=== PATIENT | female | born 1960 | race Two or more races ===

== ENCOUNTER 2025-01-21 13:57 | Inpatient (IN) | payer MEDICAID, SELFPAY ==
[2025-01-21] VITALS (9 sets, daily range): BP systolic 118–148; BP diastolic 80–108; PULSE 119–180; RESP 18–95; TEMP 36.8–37.4; O2SAT 95–96; BMI 37.1
--- NOTE | 2025-01-21 | XR_ITS ---
Examination: MRI brain without intravenous contrast. Date and time of exam: January 21, 2025 1818 hours INDICATIONS: Headaches and dizziness today Technique: Multiple axial and sagittal images of the brain obtained. Siemens high-resolution 1.5 Telma short bore scanners utilized. Sagittal sections, T1-weighted, TR 500, TE 14, are performed. Axial sections proton-density and T2-weighted have been obtained. Inversion recovery axial images, TR 9, 260, TE 111, TI 2500. Diffusion weighted images, axial sections, TR 4800, TE 128, B value 1000 Axial sections, ADC map, TR 4800, TE 128 Findings: Enlargement of the sella turcica is not present. The optic chiasm and infundibular are not remarkable. Prepontine and interpeduncular cisterns are not enlarged. There is no localized enlargement of the medulla or claudio. Fourth ventricle and cerebellar tonsils appear normal in position. No subacute area of hemorrhage density is seen. Mass in the cerebellopontine angle region is not evident. Globes symmetrical. Orbital musculature including medial lateral rectus muscles do not exhibit abnormality. Diffusion-weighted images demonstrate large foci of restricted diffusion left cerebellar hemisphere left vermis. Increased white matter signal mild Mass effect upon the ventricular system is not identified. 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
--- NOTE | 2025-01-21 14:01 | EKG_ITS ---
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
--- NOTE | 2025-01-21 14:16 | XR_ITS ---
Examination: AP chest single view Technique one AP portable semiupright chest single view Date and time: January 21, 2025, 1423 hrs. Indications: Dizziness today. Findings: Mild enlargement cardiac contour. Mild to moderate vascular congestion. No lobar pneumonia. Moderate osteopenia. Impression: Mild to moderate vascular congestion.
--- NOTE | 2025-01-21 14:26 | PC.NURSE ---
PER ASHA AT BEDSIDE PTS ONLY HX IS HTN, USED TO HAVE DIABETES BUT DOESN'T ANYMORE, ARTHRITIS AND NO CARDIAC HX. PER ASHA PT HAS NOT BEEN FEELING WELL FOR 2 DAYS, SAID HER L SIDE OF FACE WAS NUMB, SHE HAS DOUBLE VISION, AND THE LIGHT HURTS HER EYES. ASHA AT BEDSIDE ATTENTIVE TO PT.
--- NOTE | 2025-01-21 14:32 | EDNOTE_ITS ---
ED Dizzyness RME/HPI General Chief Complaint: Dizziness Stated Complaint: BROUSSARD, dizzy, HTN X 2 days Time Seen by Provider: 01/21/25 14:01 Source: patient and family Arrival date/time: 01/21/25 13:57 Limitations: no limitations RME / HPI RME / HPI Narrative: 65-year-old female is brought in by daughter who helps provide the translation. She is here today with a 2-day history of dizziness without syncopal related episodes or falls. She denies any chest pain or palpitations. Has no shortness of breath. Has no lower leg edema. Denies any fevers or chills. Has no abdominal pain, nausea, vomiting. She denies any past cardiac history other than hypertension. Has no history of diabetes. Has had no recent travels or surgeries. MD complaint: dizziness Timing: gradual onset Description: room spinning History of similar episodes: No History of trauma: No Related Data Allergies Allergy/AdvReac Type Severity Reaction Status Date / Time No Known Drug Allergies Allergy Verified 01/21/25 14:06 ED Exam General Limitations: Present no limitations General appearance: Present alert and in no apparent distress Head Head exam: Present atraumatic Eye Eye exam: Present normal appearance, PERRL and EOMI ENT ENT exam: Present normal exam, normal oropharynx and mucous membranes moist Neck Neck exam: Present normal inspection, full ROM and trachea midline Chest Chest inspection: Present normal inspection and symmetric chest wall rise Respiratory Respiratory exam: Present normal lung sounds bilaterally Cardiovascular Cardiovascular exam: Present tachycardia, irregular rhythm and normal heart sounds Abdominal Exam Abdominal exam: Present soft and normal bowel sounds Extremities Exam Extremities exam: Present normal inspection and full ROM Back Exam Back exam: Present normal inspection and full ROM Neurological Exam Neurological exam: Present alert, oriented X3, CN II-XII intact and other (Hallpike maneuvers are positive, she has increased dizziness with her head tilted to the left) Psychiatric Psychiatric exam: Present normal affect and normal mood Skin Skin exam: Present warm, dry, intact and normal color Course Course Course Narrative: Patient was brought back to exam room 5 once her atrial fibrillation was identified. On the monitor, her heart rate ranged between 140 to 181 bpm. 15 mg of diltiazem was provided IV. Heart rate improved and ranged between 110- 141. After approximately 20 minutes, a repeat dose of 15mg of diltiazem was provided. Rate improved to 90 to 110 bpm. Our hospitalist was contacted and patient was admitted. Case discussed a ttending ER physician. Quality Measures none Orders Category Date Time Status COVID-19 Screening Questionnaire NOW Care 01/21/25 15:[address] Screening NOW Care 01/21/25 14:04 Active Decision to Admit X1 Care 01/21/25 15:16 Ordered EKG (ED ONLY) *Do not use* NOW Care 01/21/25 14:02 Completed MRI Screening NOW Care 01/21/25 14:08 Active EKG (ED Only) Stat Exams 01/21/25 14:01 Draft MR head/brain wo con Stat Exams 01/21/25 Ordered XR chest 1V Stat Exams 01/21/25 14:16 Completed BNP [B-Type Natriuretic Peptide] Stat Lab 01/21/25 14:21 Completed CBC Stat Lab 01/21/25 14:21 Completed CMP [Comprehensive Metabolic Panel] Stat Lab 01/21/25 14:21 Completed Mag [Magnesium] Stat Lab 01/21/25 14:21 Completed Troponin I Stat Lab 01/21/25 14:21 Completed Troponin I Stat Lab 01/21/25 15:15 Ordered Diltiazem Inj [Cardizem Inj] Med 01/21/25 14:31 Discontinued 15 mg IV X1 ONE Diltiazem Inj [Cardizem Inj] Med 01/21/25 14:55 Discontinued 15 mg IV X1 ONE Vital Signs Vital signs: Vital Signs Pulse Rate 171 H 01/21/25 14:17 Respiratory Rate 20 01/21/25 14:17 Pulse Oximetry (%) 96 01/21/25 14:17 Oxygen Delivery Method Room Air 01/21/25 14:17 Dizziness MDM Narrative MDM Narrative:: 65-year-old female is brought in by daughter who helps provide the translation. She is here today with a 2-day history of dizziness without syncopal related episodes or falls. She denies any chest pain or palpitations. Has no shortness of breath. Has no lower leg edema. Denies any fevers or chills. Has no abdominal pain, nausea, vomiting. She denies any past cardiac history other than hypertension. Has no history of diabetes. Has had no recent travels or surgeries. On exam, patient is nontoxic-appearing. Hallpike maneuvers are positive. An EKG was obtained and she was found to have atrial fibrillation with rapid geovanna tricular response. Patient was immediately brought back to room 5 for further interventions and workup. Patient had improved rate control after doses of diltiazem. We will admit to medicine. Patient may benefit from MRI to rule out thrombus as a cause of her dizziness. She may also benefit from inpatient cardiac echo to assess for thrombus. Patient has not been anticoagulated and would benefit from this additionally. Patient data External records reviewed:: None Clinical information provided by:: patient and family Social determinants that could affect healthcare access:: none Patient has the following chronic illnesses:: htn How is presenting disease/condition affected by chronic disease/condition?: uneffected by Evaluation data The following diagnostics were reviewed and interpreted by me:: lab results, radiology exam(s) and EKG tracing(s) (Atrial fibrillation at [address] changes) Lab and/or radiology exams considered but not ordered:: n/a Interpretation Summary: New onset A-fib with RVR Medications / Prescriptions Medications or Prescriptions considered but not ordered:: n/a Medication administrations:: Medication Administration History Discontinued Medications Diltiazem HCl (Diltiazem Inj 5 Mg/Ml Vial 5 Ml) 15 mg IV X1 ONE Stop: 01/21/25 14:32 Last Admin: 01/21/25 14:35 Dose: 15 mg Documented By: TM Diltiazem HCl (Diltiazem Inj 5 Mg/Ml Vial 5 Ml) 15 mg IV X1 ONE Stop: 01/21/25 14:56 Last Admin: 01/21/25 14:59 Dose: 15 mg Documented By: TM See above Consultations Consultation(s) initiated? (list below): No Diagnosis Most likely diagnosis given after review of the tests above:: Atrial fibrillation with RVR Admission Indicated Admission indicated?: indicated Admission Request Was there a request for admission?: Yes Admission Attestation Admission request attestation: Discussed case with [] from Hospitalist service regarding admission. Discussed patients ED course, exam findings, labs, and radiology results. The Hospitalist [agrees,declines] to accept the patient for admission. Disposition Plan Disposition Plan: Admit Critical Care Time Critical Care Time Critical Care Time: Yes Total Critical Care Time (min.): 45 Attestation: I have personally spent 45 minutes of critical care time, exclusive of time spent on any procedures, in evaluation and management of this critically ill patient?s condition of atrial fibrillation rapid ventricular spots. I provided the following critical care treatment diagnostic workup, serial exams, review of test results, providing pharmacologic interventions, discussing case with attending ER physician and hospitalist. Discharge Plan Plan Patient Disposition: Admit Acute Care w/in Hospital Prescriptions/Referrals Referrals: No Primary/Family,Physician [Primary Care Provider] - In 1 week Problem List Clinical Impression: Atrial fibrillation with rapid ventricular response, Dizziness Patient/Caregiver Discharge Instructions Print Language: Mohawk Stand Alone Forms: Melanie Award Info., Patient Portal Info Letter
[2025-01-21] MEDS: DILTIAZEM INJ 5 MG/ML VIAL 5 ML 15 MG IV ×2 (14:35→14:59)
[2025-01-21 14:36] LABS: Basophils # (Auto) 0.0 Thou/mm3 (0.0-0.2); Basophils % (Auto) 1 % (0-2.5); Eosinophils # (Auto) 0.1 Thou/mm3 (0.0-0.5); Eosinophils % (Auto) 1 % (0-10); Hematocrit 41.6 % (36.0-46.0); Hemoglobin 14.1 g/dL (12.0-16.0); Immature Granulocytes Auto 0.02 Thou/mm3 (0.00-0.00); Lymphocytes # (Auto) 1.7 Thou/mm3 (1.0-4.8); Lymphocytes % (Auto) 19 % (10-50); Mean Corpuscular HGB Conc 33.9 g/dl (31.0-37.0); Mean Corpuscular Hemoglobin 29.6 pg (25.0-35.0); Mean Corpuscular Volume 87 fL (80-100); Monocytes # (Auto) 0.7 Thou/mm3 (0.0-0.8); Monocytes % (Auto) 8 % (0-12); Neutrophils # (Auto) 6.2 Thou/mm3 (1.8-7.7); Neutrophils % (Auto) 72 % (37-80); Nucleated Red Blood Cell # 0.00 Thou/mm3 (0.00-0.00); Nucleated Red Blood Cell % 0 /100 WBC (0); Platelet Count 236 Thou/mm3 (140-440); RDW Standard Deviation 42.3 fL (36.4-46.3); Red Blood Count 4.77 Miln/mm3 (4.00-5.20); White Blood Count 8.7 Thou/mm3 (3.6-11.0)
[2025-01-21 14:58] LABS: Alanine Aminotransferase 33 U/L (10-49); Albumin, Serum 4.5 gm/dL (3.4-4.8); Albumin/Globulin Ratio 1.6 (1.2-2.2); Alkaline Phosphatase 88 U/L (46-116); Anion Gap 12 (7-16); Aspartate Amino Transferase 37 U/L (0-34); BUN/Creatinine Ratio 14 Ratio (12-20); Bilirubin,Total 1.0 mg/dL (0.3-1.2); Blood Urea Nitrogen 13 mg/dL (9-23); Calcium 9.3 mg/dL (8.3-10.6); Calcium (Corrected) 9.3 mg/dL (8.5-10.1); Carbon Dioxide 25.0 mMol/L (20.0-31.0); Chloride 105 mMol/L (98-107); Creatinine (Component) 0.9 mg/dL (0.6-1.3); Globulin 2.8 gm/dL (2.3-3.5); Glucose 136 mg/dL (74-106); Magnesium 2.0 mg/dL (1.6-2.6); Osmolality,Calculated 285 (275-295); Potassium 4.0 mMol/L (3.4-5.1); Sodium 142 mMol/L (136-145); Total Protein 7.3 gm/dL (5.7-8.2); eGFR > 60 See Note
[2025-01-21 15:02] LABS: Troponin I 0.133 ng/mL (0.0-0.045)
[2025-01-21 15:12] LABS: B-Type Natriuretic Peptide 216 pg/mL (0-100)
[2025-01-21 16:47] LABS: Troponin I 0.126 ng/mL (0.0-0.045)
--- NOTE | 2025-01-21 17:22 | ESHP_ITS ---
<Statement entered by Ligia Cuadra MD - 01/28/25 11:43> I reviewed above note and agree with findings and plans. I have also personally examined the patient with medicine team and went over assessment and plan with medical team including regulatory affairs intern and resident physician. Documentation for date of: 01/21/25 Senior resident attestation: Patient evaluated and examined at the bedside, plan of care discussed with rest of the team including my attending physician, except as noted. 65-year-old female with a past medical history of hypertension, noncompliance with medications, history of palpitations for the past year. Now presented to the emergency room due to chief complaint of dizziness and throbbing headache. This started 2 days ago. In the ED patient was found to have A-fib with RVR, heart rate in the 150s, received diltiazem pushes 15 mg x 2, which improved her heart rate but underlying rhythm stated A-fib/flutter. #Persistent A-fib/flutter with RVR?history of palpitations for the past few months, no recent cardiology evaluation. Due to new diagnosis of atrial fibrillation, will attempt to convert the patient to sinus rhythm to prevent tachycardia induced cardiomyopathy started on amiodarone gtt. and heparin gtt. [id number] score 2. Cardiology consult is ordered. Appreciate recommendations. #Dizziness and vertigo?associated with headache symptoms started almost 48 hours ago, ER ordered MRI brain to rule out posterior circulation stroke. Will consider neurology consult following MRI. #History of hypertension?takes lisinopril at home but history of noncompliance. Quresh PGY2 HPI History of Present Illness History of present illness: 65-year-old female with past medical history of hypertension presented to the ED due to dizziness and headache. It started 2 days ago when she was sitting in the lobby and tried to stand up. She immediately felt the dizziness and tried to sit down but the dizziness and headache never went away. Headache is throbbing, constant, mostly localized on the frontal head. Patient noted past episodes palpitations and shortness of breath during which she felt impending sense of doom. Patient feels nauseous. Currently denies chest pain, vision changes, numbness, shortness of breath, cough, fatigue. Past Medical History Family History OTHER FAMILY HX: Hypertension Social History SOCIAL: Denies smoking, alcohol usage or illicit drug usage. Exam Vital Signs Temp Pulse Resp BP Pulse Ox O2 Del Method 98.5 F 122 H 20 118/80 95 Room Air 01/21/25 16:44 01/21/25 16:44 01/21/25 16:44 01/21/25 16:44 01/21/25 16:44 01/21/25 16:44 Narrative Exam GENERAL: AAOx3, Patient is in normal mood and affect, cooperative HEENT: Normocephalic, atraumatic.? Pupils are equal and reactive.? Oral mucosa is moist. Patent Nares NECK: Supple, nontender, no thyromegaly, no meningismus, no JVD, no step offs CHEST: Symmetrical, atraumatic, and with equal expansion , Nontender on palpation no deformity and no crepitus. CARDIOVASCULAR: Heart irregularly irregular rhythm. LUNGS: Clear to auscultation bilaterally with symmetrical chest rise.? No laboring tachypnea or wheezing.? No intercostal subcostal retraction.? No rales and no rhonchi. ABDOMEN: Soft, flat, nontender to palpation, no guarding or rebound tenderness.? Active and normal bowel sounds. EXTREMITIES: Nontender.? No edema.? No cyanosis.? Patient is able to move all 4 extremities well, with full ROM and good CSM. SKIN: Warm and dry, no jaundice or rashes noted. MUSCULOSKELETAL: No lumbar or midline bony tenderness.? There is no CVA tenderness.? No paraspinal muscle spasm or tenderness. NEURO: Cranial nerves II through XII grossly intact.? There is no focal neurologic deficits noted.? Results: Labs 01/22/25 04:50 01/22/25 04:50 Labs: Short CBC 01/21/25 Range/Units 14:21 WBC 8.7 (3.6-11.0) Thou/mm3 Hgb 14.1 (12.0-16.0) g/dL Hct 41.6 (36.0-46.0) % Plt Count 236 (140-440) Thou/mm3 BMP 01/21/25 14:21 Sodium 142 Potassium 4.0 Chloride 105 Carbon Dioxide 25.0 BUN 13 Creatinine 0.9 Glucose 136 H Calcium 9.3 Cardiac Enzymes 01/21/25 01/21/25 Range/Units 14:21 16:15 Troponin I 0.133 H* 0.126 H* (0.0-0.045) ng/mL Liver Function 01/21/25 Range/Units 14:21 Total Bilirubin 1.0 (0.3-1.2) mg/dL AST 37 H (0-34) U/L ALT 33 (10-49) U/L Alkaline Phosphatase 88 (46-116) U/L Albumin 4.5 (3.4-4.8) gm/dL Quality Measures Quality Measures none Medications Home Medications and Allergies Home Medications ?Medication ?Instructions ?Recorded ?Confirmed ?Type benazepril 20 mg tablet 20 mg PO QDAY 01/22/2501/22 History ondansetron HCl 8 mg tablet 8 mg PO QDAY PRN nausea an d 01/22/25 01/22/25 History vomiting Allergies Allergy/AdvReac Type Severity Reaction Status Date / Time No Known Drug Allergies Allergy Verified 01/21/25 14:06 Visit Medications Acetaminophen (Acetaminophen 325 Mg Tablet) 650 mg PO Q6H PRN PRN Reason: PAIN OR FEVER > 101 Stop: 02/20/25 16:42 Heparin Sodium (Porcine) (Heparin Sod Inj 5000 Unit/Ml Vial) 5,000 unit SC Q8HR ALISA Stop: 02/04/25 21:59 Amiodarone HCl/Dextrose (Nexterone Ivpb) 150 mg in 100 mls @ 600 mls/hr IV .Q10M ONE Stop: 01/21/25 17:27 Amiodarone HCl/Dextrose (Nexterone Ivpb) 360 mg in 200 mls @ 33.333 mls/hr IV .Q6H ONE Stop: 01/21/25 23:27 Amiodarone HCl/Dextrose (Nexterone Ivpb) 360 mg in 200 mls @ 16.667 mls/hr IV .Q12H ALISA Stop: 01/22/25 23:27 Ondansetron HCl (Ondansetron Inj 2 Mg/Ml Inj 2 Ml) 4 mg IVP Q6H PRN; Protocol PRN Reason: NAUSEA OR VOMITING Stop: 02/20/25 16:42 Discontinued Medications Diltiazem HCl (Diltiazem Inj 5 Mg/Ml Vial 5 Ml) 15 mg IV X1 ONE Stop: 01/21/25 14:32 Last Admin: 01/21/25 14:35 Dose: 15 mg Diltiazem HCl (Diltiazem Inj 5 Mg/Ml Vial 5 Ml) 15 mg IV X1 ONE Stop: 01/21/25 14:56 Last Admin: 01/21/25 14:59 Dose: 15 mg Assessment & Plan Plan Patient is a 65-year-old female with past medical history of hypertension who presented to the ED on 01/21/2025 with dizziness and headache. Admitted for A- fib with RVR, with heart rate ranging between 140 to 181 bpm requiring diltiazem injections for rate to improved to 92 to 110 bpm. #Afib with RVR -EKG showed A-fib with RVR. Patient's multiple episodes of shortness of breath and palpitations in the past, likely less than 1 year duration, indicates persistent A.fib, will purse rhythm control strategy. Will attempt to convert to sinus rhythm with goal of preventing tachycardia induced cardiomyopathy. [id number] score of 2. Will start anticoagulation as we are attempting pharmacological cardioversion. Patient responded to diltiazem pushes with 15mg x2. We ordered TSH as patient started amiodarione drip. -Troponin 0.126, BNP 216. Plan: -Start amiodarone drip -Heparin Drip at DVT dose at 18 units per hour. -Monitor for bradycardia, we ordered TSH #Dizziness - Associated with palpitations and headache. Concerning for posterior circulation stroke thus ER called stroke alert. Tele neuro evaluated patient and did not recommend tPA. - Will admit patient and consult inpatient neurology -MRI ordered by ER to r/o posterior circulation stroke. #Type2 FL, likely supply-demand ischemia. - Troponin peaked at 0.133, now at level 0.126. - Heparin Drip at DVT dose at 18 units per hour. - No EKG evidence of STEMI Disposition: Telemetry Diet: Cardiac Diet GI prophylaxis:Famotidine DVT prophylaxis: Heparin drip Code:Full Code Assessment and plan discussed with my attending physician Dr. Cuadra and Dr. Riddle (PGY-3) Dr. Verduzco (PGY-1)- Internal medicine resident
[2025-01-21] MEDS: AMIODARONE 150 MG IVPB 150 MG/100 ML BAG 600 MG IV (17:33)
[2025-01-21] MEDS: AMIODARONE 360 MG IVPB 360 MG/200 ML BAG 33.333 MG IV (17:48)
[2025-01-21 18:34] LABS: INR 1.1 (0.9-1.3); Partial Thromboplastin Time 26.7 Seconds (22.0-36.0); Prothrombin Time 11.5 Seconds (9.0-12.2)
--- NOTE | 2025-01-21 20:59 | PC.NURSE ---
PT HEPARIN PENDING FRO PTT CALLED PHARMACY
[2025-01-21] MEDS: HEPARIN SOD INJ 5000 UNIT/ML VIAL 6700 UNIT IV (22:04)
[2025-01-21] MEDS: Heparin/D5w 25K 250 ML Ivpb 25,000 UNIT/250 ML BAG 15.023 UNIT IV (22:05)
[2025-01-21] MEDS: FAMOTIDINE INJ 10 MG/ML VIAL 2 ML 20 MG IVP (22:05)
[2025-01-21 23:30] LABS: Troponin I 0.137 ng/mL (0.0-0.045)
[2025-01-22] VITALS (15 sets, daily range): BP systolic 100–148; BP diastolic 64–97; PULSE 85–171; RESP 19–96; TEMP 36.1–36.4; O2SAT 94–97; BMI 37.2
[2025-01-22] MEDS: AMIODARONE 360 MG IVPB 360 MG/200 ML BAG 16.667 MG IV ×2 (01:08→14:41)
--- NOTE | 2025-01-22 03:01 | PC.NURSE ---
Case Consult 01/22/2025 03:01:30 [facility] Case # [id number] has been created.
--- NOTE | 2025-01-22 03:21 | ECHO_ITS ---
Transthoracic Echo Report Ht (in): 59 Wt (lb): 184 Exam Location: Echo Lab Status: Inpatient Communications Maintainer: Iona Byers Indications: Procedure Performed: BP: 120 / 95 HR: 135 Technical Quality: Technically difficult study MEASUREMENTS (Male / Female) Normal Values 2D ECHO LV Ejection Fraction MOD BP 29.0 % >= 55 % LV Cardiac Index MOD BP 1357.8 cm?/min?m? LV Ejection Fraction MOD 4C 26.4 % LV Cardiac Index MOD 4C 1301.3 cm?/min?m? LV Ejection Fraction 4C AL 24.2 % LV Cardiac Index 4C AL 1233.8 cm?/min?m? LV Ejection Fraction MOD 2C 18.7 % LV Cardiac Index MOD 2C 707.2 cm?/min?m? LV Ejection Fraction 2C AL 15.7 % LV Cardiac Index 2C AL 597.2 cm?/min?m? LA Volume Index 33.9 cm?/m? 16 - 28 cm?/m? M-MODE AV Cusp Separation MM 1.8 cm DOPPLER AV Peak Velocity 138.5 cm/s AV Peak Gradient 7.7 mmHg AV Mean Gradient 4.0 mmHg AV Velocity Time Integral 29.0 cm LVOT Peak Velocity 71.7 cm/s LVOT Peak Gradient 2.1 mmHg LVOT Velocity Time Integral 13.0 cm MR Peak Velocity 408.5 cm/s MR Peak Gradient 66.7 mmHg TR Peak Velocity 286.3 cm/s TR Peak Gradient 32.8 mmHg PV Peak Velocity 82.5 cm/s PV Peak Gradient 2.7 mmHg FINDINGS Left Ventricle Normal left ventricular size, wall thickness. Global left ventricular systolic function is severely decreased. The ejection fraction is visually estimated at 25 %. Unable to evaluate diastolic function due to arial fibrillation. Right Ventricle The right ventricle is normal in size and systolic function. The estimated right ventricular systolic pressure, 49 mmHg. RAP15. Left Atrium The left atrium is normal by two-dimensional, color flow and Doppler imaging with no structural abnormalities, no thrombus formation present. Right Atrium The right atrium is normal by two-dimensional imaging, color flow and Doppler imaging with no structural abnormalities, no thrombus formation present. Atrial Septum The interatrial septum appears normal with no evidence of a shunt. Aorta The aorta is normal by two-dimensional, color flow and Doppler interrogation. Mitral Valve The mitral valve is normal by two-dimensional, color flow and Doppler interrogation. Mild mitral regurgitation. Aortic Valve The aortic valve is trileaflet and normal by two-dimensional, color flow and Doppler interrogation. There is no significant aortic valve regurgitation. Tricuspid Valve The tricuspid valve is normal by two-dimensional, color flow and Doppler interrogation. There is mild tricuspid valve regurgitation. Pulmonic Valve The pulmonic valve is not well visualized. There is no significant pulmonic valve regurgitation. Vessels Dilated inferior vena cava. Pericardium The pericardium is normal by two-dimensional imaging. There is no significant pericardial effusion. CONCLUSIONS Indication: New onset afib, stroke with bubble study Negative bubble study. Normal LV size, wall thickness. Global LV systolic function is severely decreased. Estimated EF at 25 %. The RV is normal in size and systolic function. The estimated RVSP, 49 mmHg. RAP15. Mild MR and TR. Dilated IVC. Petra Angel (Electronically Signed) Final Date: 22 January 2025 15:14
--- NOTE | 2025-01-22 03:41 | ESCONSULT_ITS ---
Tele Neuro Consultation Consultation Date 01/22/25 Most Recent Vital Signs Last Vital Signs Temp 99.3 F 01/21/25 22:00 Pulse 128 H 01/22/25 01:08 Resp 19 01/21/25 22:00 BP 111/93 H 01/22/25 01:08 Pulse Ox 96 01/21/25 22:00 O2 Del Method Room Air 01/21/25 22:00 Laboratory-Coagulation Panel PT 11.5 Seconds (9.0-12.2) 01/21/25 14:21 INR 1.1 (0.9-1.3) 01/21/25 14:21 APTT 26.7 Seconds (22.0-36.0) 01/21/25 14:21 Consultation Narrative [facility] TeleNeurology Consult Services Patient Name:???Xuan Blanco Date of :???1960 Identification Number:??? Date of Service:???01/22/2025 03:01:30 Diagnosis:?I63.89 - Cerebrovascular accident (CVA) due to other mechanism ([facility]LY [facility]) Impression: ?This consult was conducted in real-time using interactive audio and video technology. Patient was informed of the technology being used for this visit and agreed to proceed. Patient located in hospital and provider located at home/office setting. ? ?This is a 65 year old F with HTN who was admitted to [place], [place] in the afternoon of 01/21/25 for vertigo for 2 days. ? ?She presented to the hospital yesterday afternoon with a chief complaint of vertigo for the past two days. Upon admission, an MRI of the brain was ordered; however, a CTA or CTH was not requested, and neurology was not consulted at the time of admission. ? ?During her initial evaluation, the patient was found to have atrial fibrillation with rapid ventricular response. She was put on a heparin drip for that. The MRI, which was performed yesterday evening, revealed a left cerebellar stroke. Consequently, a stroke alert was called at approximately 6 AM on January 22, 2025, when the team noticed the radiology report from last night indicating the presence of a stroke on the MRI. ? ?Upon my examination, the patient reports mild dizziness and mild dysphagia, which she states has been present for the past two to three days. She denies any other complaints, and her NIH Stroke Scale (NIHSS) score is 0. ? ?I reviewed the MRI. There is indeed an acute stroke in the left cerebellum, wh ich is of moderate size. It is in a location that explains her symptoms. It is wedge-shaped, indicating likely embolic etiology, and based on new diagnosis of afib with RVR, would suspect cardioembolic. She is not a tPA/TNk candidate due to LKW>4.5 hours. Recommendations below. Recommendations: ? Telemetry Floor ? Neuro Checks (Q4) ? Bedside Swallow Eval ? Goal normotension ? Euglycemia and Avoid Hyperthermia (PRN Acetaminophen) ?Can continue the heparin drip, with a goal to transition to oral anticoagulation such as a direct oral anticoagulant (DOAC, i.e. apixaban), versus coumadin. Due to stroke, heparin drip should be the high risk stroke - no bolus protocol (the protocol without boluses). ?My recommended approach (or defer to primary team expertise): If planning to transition to DOAC (apixaban), continue the heparin drip to a therapeutic aPTT for 48 hours. After this period, then start the DOAC, and stop the heparin drip 1-2 hours after the first dose of DOAC. If planning for transition to coumadin instead (such as for cost issues with DOAC or other reasons), continue the heparin drip along with coumadin until a goal INR of 2-3 is reached, then discontinue the heparin. ?Atorvastatin 40 mg daily. ?TTE with bubble ?HbA1C, Lipid Panel, TSH. ?Lifestyle Modifications: Weight management (goal healthy BMI), smoking cessation if smoker, Mediterranean diet, exercise (moderate intensive aerobic exercise at least 3 days of the week for 20-60 minutes at a time per AHA guidelines, or as tolerated), active lifestyle, outpatient goal normotension, outpatient goal LDL <70. PCP to assist with these modifications and goals. ?Vessel imaging (CTA head and neck with contrast) can be obtained routinely for risk factor assessment, though not required stat given patient is not an DOMIN[place] candidate. Advanced Imaging: Advanced Imaging Deferred because: Current physical exam at the time of my assessment is not highly suggestive of an acute surgically intervenable large vessel occlusion. Additionally, stroke already completed in area that explains symptoms, NIHSS is 0, and last known well is >48 hours ago. Should the physical exam worsen in the future, please obtain state CTA H/N with contrast and call a new Stroke Alert. Metrics: Last Known Well: 01/21/2025 18:48:00 Dispatch Time: 01/22/2025 03:01:30 Initial Response Time: 01/22/2025 03:14:53Symptoms: dizziness/vertigo. Initial patient interaction: 01/22/2025 03:15:38 NIHSS Assessment Completed: 01/22/2025 03:21:30Patient is not a candidate for Thrombolytic. Thrombolytic Medical Decision: 01/22/2025 03:21:30Patient was not deemed candidate for Thrombolytic because of following reasons: LKW outside 4.[address] Head: Images were unavailable to me at the time of the exam, and I personally reviewed the study with attending radiologist. Primary Provider Notified of Diagnostic Impression and Management Plan on: 01/22/2025 03:40:00 Spoke With: bedside team. Attempted to call primary attending from number provided to me, but could not reach. I Left a voicemail stating my recommendations are in the chart and to call with questions. Able to Reach 01/22/2025 03:40:00 History of Present Illness:Patient is a 65 year old Female. Inpatient stroke alert was called for symptoms of dizziness/vertigo. This consult was conducted in real-time using interactive audio and video technology. Patient was informed of the technology being used for this visit and agreed to proceed. Patient located in hospital and provider located at home/office setting. This is a 65 year old F with HTN who was admitted to [place], [place] in the afternoon of 01/21/25 for vertigo for 2 days. She presented to the hospital yesterday afternoon with a chief complaint of vertigo for the past two days. Upon admission, an MRI of the brain was ordered; however, a CTA or CTH was not requested, and neurology was not consulted at the time of admission. During her initial evaluation, the patient was found to have atrial fibrillation with rapid ventricular response. She was put on a heparin drip for that. The MRI, which was performed yesterday evening, revealed a left cerebellar stroke. Consequently, a stroke alert was called at approximately 6 AM on January 22, 2025, when the team noticed the radiology report from last night indicating the presence of a stroke on the MRI. Upon my examination, the patient reports mild dizziness and mild dysphagia, which she states has been present for the past two to three days. She denies any other complaints, and her NIH Stroke Scale (NIHSS) score is 0. Past Medical History: Other PMH:? HTN Medications: Anticoagulant use:??Yes?heparin drip No Antiplatelet use Reviewed EMR for current medications Allergies:? Reviewed Social History: Drug Use: No Family History: There is no family history of premature cerebrovascular disease pertinent to this consultation ROS : 14 Points Review of Systems was performed and was negative except mentioned in HPI. Past Surgical History: There Is No Surgical History Contributory To Today?s Visit Examination: BP(111/93),?Pulse(128), 1A: Level of Consciousness - Alert; keenly responsive?+ 0 1B: Ask Month and Age - Both Questions Right?+ 0 1C: Blink Eyes & Squeeze Hands - Performs Both Tasks?+ 0 2: Test Horizontal Extraocular Movements - Normal?+ 0 3: Test Visual [place] - No Visual Loss?+ 0 4: Test Facial Palsy (Use Grimace if Obtunded) - Normal symmetry?+ 0 5A: Test Left Arm Motor Drift - No Drift for 10 Seconds?+ 0 5B: Test Right Arm Motor Drift - No Drift for 10 Seconds?+ 0 6A: Test Left Leg Motor Drift - No Drift for 5 Seconds?+ 0 6B: Test Right Leg Motor Drift - No Drift for 5 Seconds?+ 0 7: Test Limb Ataxia (FNF/Heel-Benitez) - No Ataxia?+ 0 8: Test Sensation - Normal; No sensory loss?+ 0 9: Test Language/Aphasia - Normal; No aphasia?+ 0 10: Test Dysarthria - Normal?+ 0 11: Test Extinction/Inattention - No abnormality?+ 0 NIHSS Score:?0 Pre-Morbid Modified [place] Scale:0 Points = No symptoms at all Spoke with :?bedside team. Attempted to call primary attending from number provided to me, but could not reach. I Left a voicemail stating my recommendations are in the chart and to call with questions. This consult was conducted in real time using interactive audio and video technology. Patient was informed of the technology being used for this visit and agreed to proceed. Patient located in hospital and provider located at home/office setting. Patient is being evaluated for possible acute neurologic impairment and high probability of imminent or life-threatening deterioration. I spent total of 30 minutes providing care to this patient, including time for face to face visit via telemedicine, review of medical records, imaging studies and discussion of findings with providers, the patient and/or family. Dr Latrell Kamara [facility] For Inpatient follow-up with [facility] physician please call [facility] at . As we are not an outpatient service for any post hospital discharge needs please contact the hospital for assistance. If you have any questions for the [facility] physicians or need to reconsult for clinical or diagnostic changes please contact us via [facility] at .
--- NOTE | 2025-01-22 03:54 | XR_ITS ---
Examination: CTA carotids with intravenous contrast CTA brain, head with intravenous contrast. 2-D sagittal, coronal reconstructions. 3-D reconstructions. Exam date and time: January 22, 2025, 1110 hrs. Indications: Large acute infarct left cerebellar hemisphere left vermis on brain MRI January 21, 2025, onset dizziness focal neurologic deficits this week CTDI: vol (mGy) 39 DLP: (mGycm) 400 Technique: Multiple CTA axial brain, head carotid images post intravenous contrast injection 100 cc, [id number]. 2-D sagittal, coronal reconstructions. 3-D reconstructions, 3-D post processing including vascular maximum intensity projection images. Low dose protocols were performed. One or more of the following dose reduction techniques were used; automated exposure control, adjustment of the mA and/or KV according to patient size, use of iterative reconstruction technique. Findings: No significant common carotid carotid bifurcation or internal carotid artery stenoses Enlarged left thyroid lobe with small thyroid nodules Mildly dominant left vertebral artery with no critical vertebral artery stenoses in the neck Intracranial vertebral arteries basilar artery fill as well as posterior cerebral artery branches with no large vessel occlusions Internal carotid arteries juxtasellar intact M1 segments middle cerebral arteries middle cerebral artery trifurcation vessels anterior cerebral vessels fill with no large vessel occlusions Impression: No significant neck arterial stenoses No cerebral large vessel arterial occlusions or thrombus Acute infarct left cerebellar hemisphere nonhemorrhagic
[2025-01-22 05:46] LABS: Basophils # (Auto) 0.0 Thou/mm3 (0.0-0.2); Basophils % (Auto) 0 % (0-2.5); Eosinophils # (Auto) 0.1 Thou/mm3 (0.0-0.5); Eosinophils % (Auto) 1 % (0-10); Hematocrit 40.5 % (36.0-46.0); Hemoglobin 13.8 g/dL (12.0-16.0); Immature Granulocytes Auto 0.03 Thou/mm3 (0.00-0.00); Lymphocytes # (Auto) 1.3 Thou/mm3 (1.0-4.8); Lymphocytes % (Auto) 17 % (10-50); Mean Corpuscular HGB Conc 34.1 g/dl (31.0-37.0); Mean Corpuscular Hemoglobin 29.8 pg (25.0-35.0); Mean Corpuscular Volume 88 fL (80-100); Monocytes # (Auto) 0.6 Thou/mm3 (0.0-0.8); Monocytes % (Auto) 8 % (0-12); Neutrophils # (Auto) 5.6 Thou/mm3 (1.8-7.7); Neutrophils % (Auto) 73 % (37-80); Nucleated Red Blood Cell # 0.00 Thou/mm3 (0.00-0.00); Nucleated Red Blood Cell % 0 /100 WBC (0); Platelet Count 180 Thou/mm3 (140-440); RDW Standard Deviation 43.7 fL (36.4-46.3); Red Blood Count 4.63 Miln/mm3 (4.00-5.20); White Blood Count 7.6 Thou/mm3 (3.6-11.0)
[2025-01-22 06:02] LABS: INR 1.1 (0.9-1.3); Prothrombin Time 12.1 Seconds (9.0-12.2)
[2025-01-22 06:09] LABS: Glucose Estimated Average 123 mg/dL (80-131); Hemoglobin A1C 5.9 % Hgb (4.8-6.0)
[2025-01-22 06:21] LABS: Alanine Aminotransferase 34 U/L (10-49); Albumin, Serum 4.1 gm/dL (3.4-4.8); Albumin/Globulin Ratio 1.5 (1.2-2.2); Alkaline Phosphatase 82 U/L (46-116); Anion Gap 11 (7-16); Aspartate Amino Transferase 38 U/L (0-34); BUN/Creatinine Ratio 18 Ratio (12-20); Bilirubin,Total 0.8 mg/dL (0.3-1.2); Blood Urea Nitrogen 14 mg/dL (9-23); Calcium 9.0 mg/dL (8.3-10.6); Calcium (Corrected) 9.0 mg/dL (8.5-10.1); Carbon Dioxide 26.6 mMol/L (20.0-31.0); Cardiac Risk Estimate 3.3 RATIO (3.7-5.6); Chloride 104 mMol/L (98-107); Cholesterol 154 mg/dL (132-200); Creatinine (Component) 0.8 mg/dL (0.6-1.3); Estimated Creatinine Clearance 67.4 mL/min (>60); Globulin 2.7 gm/dL (2.3-3.5); Glucose 127 mg/dL (74-106); HDL Cholesterol 46 mg/dL (40-60); LDL Cholesterol,Calculated 97 mg/dL (0-130); Magnesium 2.0 mg/dL (1.6-2.6); Osmolality,Calculated 285 (275-295); Phosphorous 3.5 mg/dL (2.4-5.1); Potassium 4.1 mMol/L (3.4-5.1); Sodium 142 mMol/L (136-145); Thyroid Stimulating Hormone 0.31 uIU/mL (0.55-4.78); Total Protein 6.8 gm/dL (5.7-8.2); Triglycerides 56 mg/dL (30-150); eGFR > 60 See Note
[2025-01-22 06:25] LABS: Troponin I 0.142 ng/mL (0.0-0.045)
--- NOTE | 2025-01-22 06:32 | PC.NURSE ---
TROPONIN AT 0.142. NO C/O CP. DR. PAZ MADE AWARE.WILL PLACE ORDERS FOR ADDITIONAL TROPONIN LABS.
--- NOTE | 2025-01-22 10:15 | PC.NURSE ---
Spoke with lab regarding pending ptt from morning draw, analyzer is down and should be resolved soon
[2025-01-22] MEDS: FAMOTIDINE INJ 10 MG/ML VIAL 2 ML 20 MG IVP ×2 (10:21→20:33)
--- NOTE | 2025-01-22 10:25 | PC.NURSE ---
Notified of High PTT from Jimmy in Hematology. Heparin drip paused. Notified Dr Riddle. Per , follow protocol per rx order.
[2025-01-22 10:34] LABS: Partial Thromboplastin Time 115.9 Seconds (22.0-36.0)
--- NOTE | 2025-01-22 11:23 | ESPR_ITS ---
<Statement entered by Ligia Cuadra MD - 01/28/25 11:44> I reviewed above note and agree with findings and plans. I have also personally examined the patient with medicine team and went over assessment and plan with medical team including recruitment intern and resident physician. Documentation for date of: 01/22/25 Senior resident attestation: Patient evaluated and examined at the bedside, plan of care discussed with rest of the team including my attending physician, except as noted. 65-year-old female with a past medical history of hypertension, noncompliance with medications, history of palpitations for the past year. Now presented to the emergency room due to chief complaint of dizziness and throbbing headache. This started 2 days ago. In the ED patient was found to have A-fib with RVR, heart rate in the 150s, received diltiazem pushes 15 mg x 2, which improved her heart rate but underlying rhythm stated A-fib/flutter. #Acute embolic stroke?found to have moderate cerebellar stroke on MRI, acute ischemic stroke given acute onset of symptoms, likely embolic phenomenon given history of A-fib and presentation, neurology consult to Dr. Nelosn is placed, follow the patient, recommended starting the patient on Eliquis and repeating CT noncontrast head tomorrow to rule out hemorrhagic conversion. #Persistent A-fib/flutter with RVR?history of palpitations for the past few months, no recent cardiology evaluation. Due to new diagnosis of atrial fibrillation, will attempt to convert the patient to sinus rhythm to prevent tachycardia induced cardiomyopathy started on amiodarone gtt. [id number] score 2. Discontinued diltiazem and start patient on metoprolol XL 25 mg, loading dose of digoxin 250 mcg x 1 given, continue with digoxin 125 mcg daily per cardiology recommendation. #CHF?echocardiogram showed reduced EF 25%, negative bubble study, cardiology consult to Dr. Nj is placed. New diagnosis of CHF, possible tachycardia induced cardiomyopathy. Given HFrEF discontinued diltiazem started metoprolol. Patient currently in no overt volume overload, will hold off on diuresis at this point. #Dizziness and vertigo?acute onset of symptoms 2 to 3 days ago, likely secondary to acute embolic stroke. #History of hypertension?takes lisinopril at home but history of noncompliance., Due to acute stroke we will hold off on adding antihypertensive at this time. Quresh PGY3 Subjective Subjective Interval history: Patient was seen and examined at bedside. A.m. vitals and labs reviewed. Patient still complains of headaches and dizziness although the degree has gotten a lot better compared to yesterday. Patient is mildly agitated due to her situation. MRI on 01/21/2025 revealed a large acute infarction left cerebellar hemisphere left vermis. Patient denies any chest pain, shortness of breath, changes in vision, or weakness. Review of systems otherwise negative except what is mentioned above Exam Vital Signs Temp Pulse Resp BP Pulse Ox O2 Del Method 97.1 F 87 19 119/87 H 94 L Room Air 01/22/25 08:00 01/22/25 08:00 01/22/25 08:00 01/22/25 08:00 01/22/25 08:00 01/22/25 08:00 Narrative Exam GENERAL: AAOx3, Patient is in normal mood and affect, cooperative HEENT: Normocephalic, atraumatic.? Pupils are equal and reactive.? Oral mucosa is moist. Patent Nares NECK: Supple, nontender, no thyromegaly, no meningismus, no JVD, no step offs CHEST: Symmetrical, atraumatic, and with equal expansion , Nontender on palpation no deformity and no crepitus. CARDIOVASCULAR: Heart irregularly irregular rhythm. LUNGS: Clear to auscultation bilaterally with symmetrical chest rise.? No laboring tachypnea or wheezing.? No intercostal subcostal retraction.? No rales and no rhonchi. ABDOMEN: Soft, flat, nontender to palpation, no guarding or rebound tenderness.? Active and normal bowel sounds. EXTREMITIES: Nontender.? No edema.? No cyanosis.? Patient is able to move all 4 extremities well, with full ROM and good CSM. SKIN: Warm and dry, no jaundice or rashes noted. MUSCULOSKELETAL: No lumbar or midline bony tenderness.? There is no CVA tenderness.? No paraspinal muscle spasm or tenderness. NEURO: Cranial nerves II through XII grossly intact.? There is no focal neurologic deficits noted.? Objective Labs 01/22/25 04:50 01/22/25 04:50 Labs: Laboratory Results - last 24 hr 01/21/25 01/21/25 01/21/25 14:21 16:15 23:00 WBC 8.7 RBC 4.77 Hgb 14.1 Hct 41.6 MCV 87 MCH 29.6 MCHC 33.9 RDW Std Deviation 42.3 Plt Count 236 Neut % (Auto) 72 Lymph % (Auto) 19 [place] % (Auto) 8 Eos % (Auto) 1 Baso % (Auto) 1 Neut # (Auto) 6.2 Lymph # (Auto) 1.7 [place] # (Auto) 0.7 Eos # (Auto) 0.1 Baso # (Auto) 0.0 Immature Gran # (Auto) 0.02 H Absolute Nucleated RBC 0.00 Immature Gran % 0 Nucleated RBC % 0 PT 11.5 INR 1.1 APTT 26.7 Sodium 142 Potassium 4.0 Chloride 105 Carbon Dioxide 25.0 Anion Gap 12 BUN 13 Creatinine 0.9 Estim Creat Clear Calc Not Performed. eGFR > 60 BUN/Creatinine Ratio [address] Glu mg/dL Hemoglobin A1c Calculated Osmolality 285 Calcium 9.3 Corrected Calcium 9.3 Phosphorus Magnesium 2.0 Total Bilirubin 1.0 AST 37 H ALT 33 Alkaline Phosphatase 88 Troponin I 0.133 H* 0.126 H* 0.137 H* B-Natriuretic Peptide 216 H Total Protein 7.3 Albumin 4.5 Globulin 2.8 Albumin/Globulin Ratio 1.6 Triglycerides Cholesterol LDL Cholesterol, Calc HDL Cholesterol Cholesterol/HDL Ratio TSH 01/22/25 04:50 WBC 7.6 RBC 4.63 Hgb 13.8 Hct 40.5 MCV 88 MCH 29.8 MCHC 34.1 RDW Std Deviation 43.7 Plt Count 180 D Neut % (Auto) 73 Lymph % (Auto) 17 [place] % (Auto) 8 Eos % (Auto) 1 Baso % (Auto) 0 Neut # (Auto) 5.6 Lymph # (Auto) 1.3 [place] # (Auto) 0.6 Eos # (Auto) 0.1 Baso # (Auto) 0.0 Immature Gran # (Auto) 0.03 H Absolute Nucleated RBC 0.00 Immature Gran % 0 Nucleated RBC % 0 PT 12.1 INR 1.1 APTT 115.9 H* D Sodium 142 Potassium 4.1 Chloride 104 Carbon Dioxide 26.6 Anion Gap 11 BUN 14 Creatinine 0.8 Estim Creat Clear Calc 67.4 eGFR > 60 BUN/Creatinine Ratio [address] Glu mg/dL 123 Hemoglobin A1c 5.9 Calculated Osmolality 285 Calcium 9.0 Corrected Calcium 9.0 Phosphorus 3.5 Magnesium 2.0 Total Bilirubin 0.8 AST 38 H ALT 34 Alkaline Phosphatase 82 Troponin I 0.142 H* B-Natriuretic Peptide Total Protein 6.8 Albumin 4.1 Globulin 2.7 Albumin/Globulin Ratio 1.5 Triglycerides 56 Cholesterol 154 LDL Cholesterol, Calc 97 HDL Cholesterol 46 Cholesterol/HDL Ratio 3.3 L TSH 0.31 L Quality Measures Quality Measures none Assessment & Plan Assessment Current Active Medications: Generic Name Dose Route Start Last Admin Trade Name Freq PRN Reason Stop Dose Admin Acetaminophen 650 mg 01/21/25 16:43 Acetaminophen 325 Mg Tablet PO 02/20/25 16:42 Q6H PRN PAIN OR FEVER > 101 Atorvastatin Calcium 80 mg 01/22/25 03:25 01/22/25 04:45 Atorvastatin Calcium 20 Mg Tablet PO 02/21/25 03:24 Not Given HS ALISA Famotidine 20 mg 01/21/25 21:00 01/22/25 10:21 Famotidine Inj 10 Mg/Ml Vial 2 Ml IVP 02/20/25 20:59 20 mg BID ALISA Administration Amiodarone HCl/Dextrose 360 mg in 200 mls @ 16.667 mls/hr 01/21/25 23:28 01/22/25 01:08 Nexterone Ivpb IV 01/22/25 23:27 16.667 mls/hr .Q12H ALISA Administration Heparin Sodium/Dextrose 25,000 unit in 250 mls @ 15.023 mls/hr 01/21/25 18:00 01/22/25 10:35 Heparin In D5w Ivpb IV 02/04/25 17:59 0 units/kg/hr .[id number] ALISA 0 mls/hr Titration Protocol 18 UNITS/KG/HR Ondansetron HCl 4 mg 01/21/25 16:43 Ondansetron Inj 2 Mg/Ml Inj 2 Ml IVP 02/20/25 16:42 Q6H PRN NAUSEA OR VOMITING Protocol Plan Patient is a 65-year-old female with past medical history of hypertension who presented to the ED on 01/21/2025 with dizziness and headache. Admitted for A- fib with RVR, with heart rate ranging between 140 to 181 bpm requiring diltiazem injections for rate to improved to 92 to 110 bpm. Was found to have left cerebellar stroke in MRI. #Acute Left cerebellar stroke - Associated with palpitations and headache. Concerning for posterior circulation stroke thus ER called stroke alert. Tele neuro evaluated patient and did not recommend tPA. -MRI (01/21/2025): Large acute infarcts left cerebellar hemisphere left vermis -CTA (01/22/2025): Acute infarct left cerebellar hemisphere nonhemorrhagic Plan: -Per neurology recommendations, patient will start Eliqus and discontinue heparin - Repeat Non-contrast CT tomorrow. #Afib with RVR -EKG showed A-fib with RVR. Patient's multiple episodes of shortness of breath and palpitations in the past, likely less than 1 year duration, indicates persistent A.fib, will purse rhythm control strategy. Will attempt to convert to sinus rhythm with goal of preventing tachycardia induced cardiomyopathy. [id number]-HOTm score of 2. Will start anticoagulation as we are attempting pharmacological cardioversion. Patient responded to diltiazem pushes with 15mg x2. We ordered TSH as patient started amiodarione drip. -Troponin 0.164, BNP 216. -ECHO: Global LV systolic function is severely decreased. Estimated EF at 25 %. Plan: -Start amiodarone drip -heparin discontinued. -Monitor for bradycardia, we ordered TSH #Type2 UT, likely supply-demand ischemia. - Troponin peaked at 0.133, now at level 0.164. - Heparin discontinued.. - No EKG evidence of STEMI Disposition: Telemetry Diet: Cardiac Diet GI prophylaxis:Famotidine DVT prophylaxis: Heparin drip Code:Full Code Assessment and plan discussed with my attending physician Dr. Cuadra and Dr. Venkatesh Verduzco (PGY-1)- Internal medicine resident
--- NOTE | 2025-01-22 11:38 | PC.SS ---
This is 65-year-old, single, female who presented to the ED due to suffering from dizziness. Patient appeared alert and oriented to self, place and situation. Patient was pleasant, her mood and behavior were ordinary. Patient reported that she recently moved from [place] to [place]. Patient confirmed her address and phone number. Patient reported that she resides with her grandchildren. Patient is independent with all ALDs, no DME use. Patient assigned her sister, Love Wilson, as her medical decision maker. Patient does not have a PCP yet. When medically clear, patient will return home; Love will provide transportation. Discharge plan: return home; Love to provide transportation. Next of kin: Love Burgos.
[2025-01-22 12:13] LABS: Troponin I 0.164 ng/mL (0.0-0.045)
[2025-01-22] MEDS: DILTIAZEM CD 120 MG CAPCR PO (13:19)
[2025-01-22] MEDS: APIXABAN 2.5 MG TABLET 5 MG PO ×2 (14:40→20:33)
--- NOTE | 2025-01-22 15:54 | ESCONSULT_ITS ---
<Statement entered by Leon Nj MD - 01/25/25 00:07> I personally examined the patient and reviewed the findings all essential components are reviewed by me agree with the treatment plan recommendation as documented by Dr. Boudreaux PGY 2 patient will recommend he continue on anticoagulation regimen if there is no contraindication by neurologist patient has A-fib and stroke HFrEF detail consultation is reviewed and all the findings are reviewed by me. I agree with the treatment plan recommendation as documented and we will continue to monitor the patient follow closely HPI Data of Consult Requesting Physician: Ligia Cuadar MD Admitting Provider: Liiga Cuadra MD Attending Provider: Ligia Cuadra MD Primary Care Provider: Physician No Primary/Family Consult Narrative History of present illness: Ms. Blanco is a Irish-speaking only 65-year-old female with past medical history significant for hypertension presented to the ED on 01/21/2025 complaining of dizziness and a throbbing headache. Patient was admitted to the hospital for a complete stroke workup and was found to be in A-fib/flutter with RVR with heart rate of 150s. Patient was started on amiodarone drip as well as oral diltiazem for anticoagulation patient was started on a heparin drip. Today patient is seen at bedside and states that she has been feeling dizziness on admission but other than that denies any shortness of breath, dizziness or syncopal episodes. Patient denies any chest pain, palpitation or chest pressure. Patient denies any previous cardiac history. Patient is found to have acute left cerebellar stroke evident on MRI which showed large acute infarct left cerebellar hemisphere and left vermis. Cardiology is consulted for new onset of A-fib as well as HFrEF with EF at 25% found on echocardiogram done with bubble study. Patient has a negative bubble study PMH: Hypertension PSH: no known surgical Hx SH: denies smoking tobacco, alcohol or illicit drugs including meth and cocaine Home meds: benzapril 20mg daily Allergies: no known allergies cc:: cc: Ligia Cuadra MD Review of Systems Review of Systems Systems Reviewed: All systems reviewed, normal except as documented Exam Vital Signs Temp Pulse Resp BP Pulse Ox O2 Del Method 96.9 F 138 H 25 H 135/97 H 96 Room Air 01/22/25 12:00 01/22/25 14:52 01/22/25 12:00 01/22/25 14:41 01/22/25 12:00 01/22/25 12:00 Narrative Exam GENERAL: A&Ox3 , Irish speaking, cooperative and well groomed female, Awake, Not in acute distress NEURO: no focal neurological deficits noted HEENT: Atraumatic, Normocephalic. mucous membranes moist. Eyes open, symmetrical, & clear HEART: irregular rate LUNGS: Clear to auscultation with no wheezing or crackles. ABDOMEN: soft, non-distended, non-tender, bowel sounds heard, no guarding or rebound tenderness SKIN: No Rash or ecchymoses EXTREMITIES: No edema, tenderness, able to move all 4 extremities, pedal pulses palpated Results Labs 01/22/25 04:50 01/22/25 04:50 Labs: Short CBC 01/22/25 Range/Units 04:50 WBC 7.6 (3.6-11.0) Thou/mm3 Hgb 13.8 (12.0-16.0) g/dL Hct 40.5 (36.0-46.0) % Plt Count 180 D (140-440) Thou/mm3 BMP 01/22/25 04:50 Sodium 142 Potassium 4.1 Chloride 104 Carbon Dioxide 26.6 BUN 14 Creatinine 0.8 Glucose 127 H Calcium 9.0 Cardiac Enzymes 01/21/25 01/21/25 01/22/25 Range/Units 16:15 23:00 04:50 Troponin I 0.126 H* 0.137 H* 0.142 H* (0.0-0.045) ng/mL 01/22/25 Range/Units 11:00 Troponin I 0.164 H* (0.0-0.045) ng/mL Liver Function 01/22/25 Range/Units 04:50 Total Bilirubin 0.8 (0.3-1.2) mg/dL AST 38 H (0-34) U/L ALT 34 (10-49) U/L Alkaline Phosphatase 82 (46-116) U/L Albumin 4.1 (3.4-4.8) gm/dL Quality Measures Quality Measures none Medications Home Medications and Allergies Home Medications ?Medication ?Instructions ?Recorded ?Confirmed ?Type benazepril 20 mg tablet 20 mg PO QDAY 01/22/2501/22 History ondansetron HCl 8 mg tablet 8 mg PO QDAY PRN nausea an d 01/22/25 01/22/25 History vomiting Allergies Allergy/AdvReac Type Severity Reaction Status Date / Time No Known Drug Allergies Allergy Verified 01/21/25 14:06 Visit Medications Acetaminophen (Acetaminophen 325 Mg Tablet) 650 mg PO Q6H PRN PRN Reason: PAIN OR FEVER > 101 Stop: 02/20/25 16:42 Apixaban (Apixaban 2.5 Mg Tablet) 5 mg PO BID [facility] Stop: 02/21/25 13:29 Last Admin: 01/22/25 14:40 Dose: 5 mg Atorvastatin Calcium (Atorvastatin Calcium 20 Mg Tablet) 80 mg PO HS [facility] Stop: 02/21/25 03:24 Last Admin: 01/22/25 04:45 Dose: Not Given Digoxin (Digoxin 0.125 Mg Tablet) 0.125 mg PO QDAY [facility] Stop: 02/22/25 08:59 Famotidine (Famotidine Inj 10 Mg/Ml Vial 2 Ml) 20 mg IVP BID [facility] Stop: 02/20/25 20:59 Last Admin: 01/22/25 10:21 Dose: 20 mg Amiodarone HCl/Dextrose (Nexterone Ivpb) 360 mg in 200 mls @ 16.667 mls/hr IV .Q12H [facility] Stop: 01/22/25 23:27 Last Admin: 01/22/25 14:41 Dose: 16.667 mls/hr Metoprolol Succinate (Metoprolol Succinate Xl 25 Mg Tabcr) 25 mg PO QDAY [facility] Stop: 02/21/25 15:44 Ondansetron HCl (Ondansetron Inj 2 Mg/Ml Inj 2 Ml) 4 mg IVP Q6H PRN; Protocol PRN Reason: NAUSEA OR VOMITING Stop: 02/20/25 16:42 Discontinued Medications Digoxin (Digoxin 0.125 Mg Tablet) 0.25 mg PO X1 ONE Stop: 01/22/25 15:43 Diltiazem HCl (Diltiazem Inj 5 Mg/Ml Vial 5 Ml) 15 mg IV X1 ONE Stop: 01/21/25 14:32 Last Admin: 01/21/25 14:35 Dose: 15 mg Diltiazem HCl (Diltiazem Inj 5 Mg/Ml Vial 5 Ml) 15 mg IV X1 ONE Stop: 01/21/25 14:56 Last Admin: 01/21/25 14:59 Dose: 15 mg Diltiazem HCl (Diltiazem Cd 120 Mg Capcr) 120 mg PO QDAY [facility] Stop: 02/21/25 12:59 Last Admin: 01/22/25 13:19 Dose: 120 mg Heparin Sodium (Porcine) (Heparin Sod Inj 5000 Unit/Ml Vial) 5,000 unit SC Q8HR [facility] Stop: 02/04/25 21:59 Heparin Sodium (Porcine) (Heparin Sod Inj 5000 Unit/Ml Vial) 6,700 unit 80 unit/kg (6700 unit) IV X1 ONE; Protocol Stop: 01/21/25 17:54 Last Admin: 01/21/25 22:04 Dose: 6,700 unit Amiodarone HCl/Dextrose (Nexterone Ivpb) 150 mg in 100 mls @ 600 mls/hr IV .Q10M ONE Stop: 01/21/25 17:27 Last Infusion: 01/21/25 17:44 Dose: Infused Amiodarone HCl/Dextrose (Nexterone Ivpb) 360 mg in 200 mls @ 33.333 mls/hr IV .Q6H ONE Stop: 01/21/25 23:27 Last Infusion: 01/22/25 01:07 Dose: Infused Heparin Sodium/Dextrose (Heparin In D5w Ivpb) 25,000 unit in 250 mls @ 15.023 mls/hr IV .[id number] [facility]; Protocol Stop: 02/04/25 17:59 Last Titration: 01/22/25 13:43 Dose: Infused Assessment & Plan Plan Ms. Blanco is a Irish-speaking only 65-year-old female with past medical history significant for hypertension presented to the ED on 01/21/2025 complaining of dizziness and a throbbing headache. Patient was admitted to the hospital for a complete stroke workup and was found to be in A-fib/flutter with RVR with heart rate of 150s. Patient was started on amiodarone drip as well as oral diltiazem and for anticoagulation patient was started on a heparin drip and now transitioned to eliquis. Cardiology is consulted for new onset of A-fib as well as HFrEF found on echo cardiogram done with bubble study. Patient has a negative bubble study #New onset A-fib with RVR #Chronic systolic HF, HFrEF with EF 25% #Uncontrolled primary hypertension -EKG showed A-fib with RVR, rate 161 QTc 431 -On admission pt endorses to multiple episodes of palpitations and shortness of breath over the last year, pt does complain of dizziness but denies syncopal episodes. -Currently pt is not in acute decompensated HF, pt denies any shortness of breath and is saturating well on room air, laying flat (denies orthpnea or PND) and on physical exam pt does not have LE edema. -Troponin 0.164, BNP 216. [id number] score of 2. HAS-BLED score 2 NYHA ll -ECHO: Normal LV size, wall thickness. Global LV systolic function is severely decreased. Estimated EF at 25 %. The RV is normal in size and systolic function. The estimated RVSP, 49 mmHg. RAP15. Mild MR and TR. Dilated IVC. Plan: -Pt is currently on amiodarone drip, transition to oral amiodarone once rate controlled with goal HR <110 -Due to reduce EF, discontinue diltiazem and recommend loading dose of digoxin and then maintenance dose of digoxin of 0.125mg -Since pt is not in acute decompensated HF, start metoprolol XL 25mg daily -For anticoagulation pt is transitioned from heparin drip to eliquis 5mg BID -Keep potassium >4 and Mag > 2 -Monitor telemetry closely -Pt will slowly need to be started on the remainder of GDMT as BP tolerates. 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 Clem Boudreaux (PGY-2)- Internal medicine resident
[2025-01-22] MEDS: DIGOXIN 0.125 MG TABLET 0.25 MG PO (16:16)
[2025-01-22] MEDS: METOPROLOL SUCCINATE XL 25 MG TABCR PO (16:16)
[2025-01-22] MEDS: ATORVASTATIN CALCIUM 20 MG TABLET 80 MG PO (20:33)
--- NOTE | 2025-01-22 23:57 | ESPR_ITS ---
Documentation for date of: 01/22/25 Subjective Subjective Interval history: Patient was seen in telemetry today at the bedside. Denies any headache dizziness nausea vomiting. Denies any vision problems/weakness/coordination difficulty in both upper and lower extremities. Exam - Neurology Vital Signs Temp Pulse Resp BP Pulse Ox O2 Del Method 97.2 F 105 H 23 H 100/64 96 Room Air 01/22/25 20:00 01/22/25 20:13 01/22/25 20:13 01/22/25 20:00 01/22/25 20:00 01/22/25 20:00 Narrative Exam GENERAL APPEARANCE: Well hydrated, well-nourished in no acute distress. HEENT: Normocephalic, atraumatic, extraocular movements intact. Pupils: Equal reacting to light and accommodation NECK: Supple, no JVD or bruits. CARDIOVASULAR: Heart: S1, S2 heard, regular without S3-S4 or murmur no rubs or gallops. LUNGS/CHEST: Clear to auscultation bilaterally. No rails, rhonchi, or wheezing. Normal inspection. ABDOMEN: Soft, nontender, with normal bowel sounds. No pulsatile masses. No rebound, rigidity, or guarding. Normal inspection and palpation. EXTREMITIES: Normal inspection and palpation. No edema, clubbing or cyanosis. SKIN: Warm and dry without rashes. Normal inspection. MUSCULOSKELETAL: No cervical, thoracic, lumbar or midline bony tenderness. Normal inspection. NEURO: Alert, awake and oriented x3. Cranial nerves: II through XII grossly intact. Speech and language: Normal with no dysarthria or dysphasia. Motor system: Tone and bulk: Normal: Strength: 5 out of 5 in all 4 extremities; No pronator drift noted. Deep tendon reflexes: 2+ bilaterally symmetrical. Plantar reflex: Downgoing bilaterally. Sensory system: Intact to all modalities of sensation bilaterally. Coordination: Intact to [id number] and giwx-[id number]-[id number] test bilaterally. No ataxia, no dysmetria, or dysdiadochokinesia noted. No intention tremors noted. Gait: Not tested. No signs of meningeal irritation noted. PSYCHIATRIC: Normal mood and affect. Objective Labs 01/23/25 05:23 01/22/25 04:50 Labs: Laboratory Results - last 24 hr 01/22/25 01/22/25 04:50 11:00 WBC 7.6 RBC 4.63 Hgb 13.8 Hct 40.5 MCV 88 MCH 29.8 MCHC 34.1 RDW Std Deviation 43.7 Plt Count 180 D Neut % (Auto) 73 Lymph % (Auto) 17 Johnson % (Auto) 8 Eos % (Auto) 1 Baso % (Auto) 0 Neut # (Auto) 5.6 Lymph # (Auto) 1.3 Johnson # (Auto) 0.6 Eos # (Auto) 0.1 Baso # (Auto) 0.0 Immature Gran # (Auto) 0.03 H Absolute Nucleated RBC 0.00 Immature Gran % 0 Nucleated RBC % 0 PT 12.1 INR 1.1 APTT 115.9 H* D Sodium 142 Potassium 4.1 Chloride 104 Carbon Dioxide 26.6 Anion Gap 11 BUN 14 Creatinine 0.8 Estim Creat Clear Calc 67.4 eGFR > 60 BUN/Creatinine Ratio [address] Glu mg/dL 123 Hemoglobin A1c 5.9 Calculated Osmolality 285 Calcium 9.0 Corrected Calcium 9.0 Phosphorus 3.5 Magnesium 2.0 Total Bilirubin 0.8 AST 38 H ALT 34 Alkaline Phosphatase 82 Troponin I 0.142 H* 0.164 H* Total Protein 6.8 Albumin 4.1 Globulin 2.7 Albumin/Globulin Ratio 1.5 Triglycerides 56 Cholesterol 154 LDL Cholesterol, Calc 97 HDL Cholesterol 46 Cholesterol/HDL Ratio 3.3 L TSH 0.31 L Assessment & Plan Assessment and plan (1) Acute CVA (cerebrovascular accident): Status: Acute Assessment and plan: Secondary to atrial fibrillation new onset. Continue with the anticoagulation and statin , Will do a repeat CT without contrast tomorrow morning to make sure that there is no hemorrhagic transformation. PT/OT evaluation tomorrow (2) Atrial fibrillation with rapid ventricular response: Status: Acute Assessment and plan: Continue with rate control and anticoagulation (3) Dizziness: Status: Resolved (4) Hypertension: Status: Chronic Assessment and plan: Continue with home meds
[2025-01-23] VITALS (14 sets, daily range): BP systolic 119–159; BP diastolic 71–97; PULSE 61–141; RESP 16–98; TEMP 36.1–36.4; O2SAT 96–99; BMI 37.2; BMI 37.1; BMI 15.0
--- NOTE | 2025-01-23 01:25 | PC.NURSE ---
SPOKE WITH DR. REYES REGARDING AMIODARONE GTT TO BE NEAR COMPLETION.NO ORDERS TO CONTINUE DRIP OR TRANSITION TO ORAL AMIODARONE AT THE MOMENT. HR BETWEEN 90-120'S. PT RESTING AT THE MOMENT. NO SIGNS OF DISTRESS. NEW ORDERS TO CONTINUE AMIODARONE DRIP AT THIS TIME.
[2025-01-23] MEDS: AMIODARONE 360 MG IVPB 360 MG/200 ML BAG 16.667 MG IV ×2 (02:13→14:52)
[2025-01-23 06:19] LABS: Basophils # (Auto) 0.0 Thou/mm3 (0.0-0.2); Basophils % (Auto) 0 % (0-2.5); Eosinophils # (Auto) 0.1 Thou/mm3 (0.0-0.5); Eosinophils % (Auto) 1 % (0-10); Hematocrit 40.7 % (36.0-46.0); Hemoglobin 14.0 g/dL (12.0-16.0); Immature Granulocytes Auto 0.02 Thou/mm3 (0.00-0.00); Lymphocytes # (Auto) 1.5 Thou/mm3 (1.0-4.8); Lymphocytes % (Auto) 19 % (10-50); Mean Corpuscular HGB Conc 34.4 g/dl (31.0-37.0); Mean Corpuscular Hemoglobin 29.4 pg (25.0-35.0); Mean Corpuscular Volume 86 fL (80-100); Monocytes # (Auto) 0.8 Thou/mm3 (0.0-0.8); Monocytes % (Auto) 10 % (0-12); Neutrophils # (Auto) 5.6 Thou/mm3 (1.8-7.7); Neutrophils % (Auto) 69 % (37-80); Nucleated Red Blood Cell # 0.00 Thou/mm3 (0.00-0.00); Nucleated Red Blood Cell % 0 /100 WBC (0); Platelet Count 198 Thou/mm3 (140-440); RDW Standard Deviation 42.5 fL (36.4-46.3); Red Blood Count 4.76 Miln/mm3 (4.00-5.20); White Blood Count 8.0 Thou/mm3 (3.6-11.0)
[2025-01-23 06:31] LABS: INR 1.1 (0.9-1.3); Partial Thromboplastin Time 28.4 Seconds (22.0-36.0); Prothrombin Time 11.9 Seconds (9.0-12.2)
[2025-01-23 06:49] LABS: Alanine Aminotransferase 34 U/L (10-49); Albumin, Serum 4.0 gm/dL (3.4-4.8); Albumin/Globulin Ratio 1.5 (1.2-2.2); Alkaline Phosphatase 89 U/L (46-116); Anion Gap 10 (7-16); Aspartate Amino Transferase 29 U/L (0-34); BUN/Creatinine Ratio 15 Ratio (12-20); Bilirubin,Total 0.8 mg/dL (0.3-1.2); Blood Urea Nitrogen 12 mg/dL (9-23); Calcium 9.1 mg/dL (8.3-10.6); Calcium (Corrected) 9.1 mg/dL (8.5-10.1); Carbon Dioxide 29.1 mMol/L (20.0-31.0); Chloride 106 mMol/L (98-107); Creatinine (Component) 0.8 mg/dL (0.6-1.3); Estimated Creatinine Clearance 67.4 mL/min (>60); Globulin 2.7 gm/dL (2.3-3.5); Glucose 107 mg/dL (74-106); Magnesium 2.1 mg/dL (1.6-2.6); Osmolality,Calculated 288 (275-295); Phosphorous 3.5 mg/dL (2.4-5.1); Potassium 3.9 mMol/L (3.4-5.1); Sodium 145 mMol/L (136-145); Total Protein 6.7 gm/dL (5.7-8.2); eGFR > 60 See Note
--- NOTE | 2025-01-23 07:00 | XR_ITS ---
Examination: CT brain head without contrast. 2-D sagittal coronal reconstructions Date and time of exam:January 23, 2025 0901 hours INDICATIONS: Headaches beginning 5 days ago, history atrial fibrillation, RVR, patient is anticoagulated, brain MRI January 21, 2025 large acute infarct left cerebellar hemisphere and vermis CTDI: vol (mGy):46.4 DLP: (mGycm):907 Technique: Multiple CT axial sections of the brain have been obtained, 5 mm slice thickness. Contrast has not been administered. 2-D sagittal, coronal reconstructions have been obtained Low dose protocols were performed. One or more of the following dose reduction techniques were used; automated exposure control, adjustment of the mA and/or KV according to patient size, use of iterative reconstruction technique. Findings: Acute infarct left cerebellar hemisphere, noted on the brain MRI January 21, 2025 No acute hemorrhage Ventricles are not enlarged No midline shift IMPRESSION: Acute nonhemorrhagic infarct left cerebellar hemisphere, noted on the brain MRI January 21, 2025
[2025-01-23] MEDS: METOPROLOL SUCCINATE XL 25 MG TABCR PO ×2 (08:01→09:54)
[2025-01-23] MEDS: APIXABAN 2.5 MG TABLET 5 MG PO ×2 (08:01→20:54)
[2025-01-23] MEDS: FAMOTIDINE INJ 10 MG/ML VIAL 2 ML 20 MG IVP ×2 (08:02→20:53)
[2025-01-23] MEDS: DIGOXIN 0.125 MG TABLET PO (08:02)
--- NOTE | 2025-01-23 08:48 | PC.SS ---
Follow up note: CT of head pending. PT pending. Pt will return home upon dc.
--- NOTE | 2025-01-23 09:47 | ESPR_ITS ---
<Statement entered by Ligia Cuadra MD - 01/28/25 11:44> I reviewed above note and agree with findings and plans. I have also personally examined the patient with medicine team and went over assessment and plan with medical team including graduate internship and resident physician. Documentation for date of: 01/23/25 Subjective Subjective Interval history: senior attestation: Patient examined at bedside. No overnight events reported. Continue Aspirin and Eliquis for acute left cerebellar hemisphere infarct, appears large on MRI. Repeat CT head on 01/23/2025 negative for acute hemorrhagic conversion. Continue aspirin and Eliquis. Patient started on metoprolol 50 mg p.o. daily. Eliquis 0.125 daily. Transition patient off amiodarone drip after completed--> amiodarone p.o. 200 mg twice daily. Physical therapy outpatient. Recommended for forward facing walker to decrease risk of falls. Plan to discharge within the next 24 hours. - Patient was seen and examined at bedside. A.m. vitals and labs reviewed. Patient still complains of headaches and dizziness although the degree has gotten a lot better compared to yesterday. Patient is mildly agitated due to her situation. Still has blurry and double vision. Patient denies any chest pain, shortness of breath, changes in vision, or weakness. Exam Vital Signs Temp Pulse Resp BP Pulse Ox O2 Del Method 97.3 F 141 H 24 H 128/97 H 97 Room Air 01/23/25 08:00 01/23/25 08:02 01/23/25 08:00 01/23/25 08:02 01/23/25 08:00 01/23/25 08:00 Narrative Exam GENERAL: AAOx3, Patient is in normal mood and affect, cooperative HEENT: Normocephalic, atraumatic.? Pupils are equal and reactive.? Oral mucosa is moist. Patent Nares NECK: Supple, nontender, no thyromegaly, no meningismus, no JVD, no step offs CHEST: Symmetrical, atraumatic, and with equal expansion , Nontender on palpation no deformity and no crepitus. CARDIOVASCULAR: Heart irregularly irregular rhythm. LUNGS: Clear to auscultation bilaterally with symmetrical chest rise.? No laboring tachypnea or wheezing.? No intercostal subcostal retraction.? No rales and no rhonchi. ABDOMEN: Soft, flat, nontender to palpation, no guarding or rebound tenderness.? Active and normal bowel sounds. EXTREMITIES: Nontender.? No edema.? No cyanosis.? Patient is able to move all 4 extremities well, with full ROM and good CSM. SKIN: Warm and dry, no jaundice or rashes noted. MUSCULOSKELETAL: No lumbar or midline bony tenderness.? There is no CVA tenderness.? No paraspinal muscle spasm or tenderness. NEURO: There is no focal neurologic deficits noted.? Objective Labs 01/23/25 05:23 01/23/25 05:23 Labs: Laboratory Results - last 24 hr 01/22/25 01/22/25 01/23/25 04:50 11:00 05:23 WBC 8.0 RBC 4.76 Hgb 14.0 Hct 40.7 MCV 86 MCH 29.4 MCHC 34.4 RDW Std Deviation 42.5 Plt Count 198 Neut % (Auto) 69 Lymph % (Auto) 19 [place] % (Auto) 10 Eos % (Auto) 1 Baso % (Auto) 0 Neut # (Auto) 5.6 Lymph # (Auto) 1.5 [place] # (Auto) 0.8 Eos # (Auto) 0.1 Baso # (Auto) 0.0 Immature Gran # (Auto) 0.02 H Absolute Nucleated RBC 0.00 Immature Gran % 0 Nucleated RBC % 0 PT 11.9 INR 1.1 APTT 115.9 H* D 28.4 D Sodium 145 Potassium 3.9 Chloride 106 Carbon Dioxide 29.1 Anion Gap 10 BUN 12 Creatinine 0.8 Estim Creat Clear Calc 67.4 eGFR > 60 BUN/Creatinine Ratio 15 Glucose 107 H Calculated Osmolality 288 Calcium 9.1 Corrected Calcium 9.1 Phosphorus 3.5 Magnesium 2.1 Total Bilirubin 0.8 AST 29 ALT 34 Alkaline Phosphatase 89 Troponin I 0.164 H* Total Protein 6.7 Albumin 4.0 Globulin 2.7 Albumin/Globulin Ratio 1.5 Quality Measures Quality Measures none Assessment & Plan Assessment Current Active Medications: Generic Name Dose Route Start Last Admin Trade Name Freq PRN Reason Stop Dose Admin Acetaminophen 650 mg 01/21/25 16:43 Acetaminophen 325 Mg Tablet PO 02/20/25 16:42 Q6H PRN PAIN OR FEVER > 101 Apixaban 5 mg 01/22/25 13:30 01/23/25 08:01 Apixaban 2.5 Mg Tablet PO 02/21/25 13:29 5 mg BID ALISA Administration Aspirin 81 mg 01/23/25 10:00 Aspirin Ec 81 Mg Tabec PO 02/22/25 09:59 QDAY ALISA Atorvastatin Calcium 80 mg 01/22/25 03:25 01/22/25 20:33 Atorvastatin Calcium 20 Mg Tablet PO 02/21/25 03:24 80 mg HS ALISA Administration Digoxin 0.125 mg 01/23/25 09:00 01/23/25 08:02 Digoxin 0.125 Mg Tablet PO 02/22/25 08:59 0.125 mg QDAY ALISA Administration Famotidine 20 mg 01/21/25 21:00 01/23/25 08:02 Famotidine Inj 10 Mg/Ml Vial 2 Ml IVP 02/20/25 20:59 20 mg BID ALISA Administration Amiodarone HCl/Dextrose 360 mg in 200 mls @ 16.667 mls/hr 01/23/25 01:29 01/23/25 02:13 Nexterone Ivpb IV 02/22/25 01:28 16.667 mls/hr .Q12H ALISA Administration Metoprolol Succinate 50 mg 01/24/25 09:00 Metoprolol Succinate Xl 25 Mg Tabcr PO 02/23/25 08:59 QDAY ALISA Ondansetron HCl 4 mg 01/21/25 16:43 Ondansetron Inj 2 Mg/Ml Inj 2 Ml IVP 02/20/25 16:42 Q6H PRN NAUSEA OR VOMITING Protocol Plan Patient is a 65-year-old female with past medical history of hypertension who presented to the ED on 01/21/2025 with dizziness and headache. Admitted for A- fib with RVR and stroke rule out. #Acute Left cerebellar stroke - Associated with palpitations and headache. Concerning for posterior circulation stroke thus ER called stroke alert. Tele neuro evaluated patient and did not recommend tPA. Repeat head CT (01/23/2025) negative to hemorrhagic conversion. Diagnostics: -MRI (01/21/2025): Large acute infarcts left cerebellar hemisphere left vermis -CTA (01/22/2025): Acute infarct left cerebellar hemisphere nonhemorrhagic -Head CT non-contrast (01/23/2025): Acute nonhemorrhagic infarct left cerebellar hemisphere Plan: -Aspirin 81 mg qday & Eliquis 5 mg PO BID (even Atrial Fibrillation w/ rvr) -Atorvastatin 80 mg HS -Aspiration Precautions/Head of the bed -PT-->outpatient physical therapy & FWW #Afib with RVR #new onset of Atrial Fibrillation #new onset of congestive heart failure #HFrEF, EF 25% (01/22/2025) -EKG showed A-fib with RVR. Patient's multiple episodes of shortness of breath and palpitations in the past, likely less than 1 year duration, indicates persistent A.fib, will purse rhythm control strategy. Will attempt to convert to sinus rhythm with goal of preventing tachycardia induced cardiomyopathy. -Troponin 0.164, BNP 216. Echo (01/22/2025): Normal LV size, wall thickness. Global LV systolic function is severely decreased. Estimated EF at 25 %. The RV is normal in size and systolic function. The estimated RVSP, 49 mmHg. RAP15. Mild MR and TR. Dilated IVC. [id number] score of 4 (CHF,HTN, stroke 2+) HAS BLED: 2 points Plan: -Continue Amiodarone drip--->transition starting tomorrow to Amiodarone 200 mg PO BID. -Continue metoprolol 50 mg Qday and digoxin 0.125 -Monitor for bradycardia #Troponemia, likely type II demand ischemia - Troponin peaked at 0.133, now at level 0.164. No evidence of ST elevation on EKG Plan -continue to monitor tele Disposition: Telemetry Diet: Cardiac Diet GI prophylaxis:Famotidine DVT prophylaxis: Heparin drip Code:Full Code Assessment and plan discussed with my attending physician Dr. Cuadra and Dr. Damaris Verduzco (PGY-1)- Internal medicine resident - The patient's plan was discussed with attending Dr. Khalif Ocampo MD PGY2 Internal Medicine
[2025-01-23] MEDS: ASPIRIN EC 81 MG TABEC PO (09:54)
--- NOTE | 2025-01-23 15:13 | PC.SS ---
SS received call from RODRÍGUEZ Lee who explained she is recommending pt follow up with Out Patient PT. SS has sent fax to Out Patient Pt. SS has spoken to patient's sisterLove who is aware of referral. SS has sent referral for walker using [facility]. SS received call from Ania at [facility] [place] who states pt's health insurance number is not correct on her facesheet. SS has called pt registration to update facesheet. Ania from [facility] [place] explained after running the correct insurance number pt has Medical from [facility] and they are not able to complete DME order. SisterLove is aware and explained pt is in the process of switching Medical to [facility]. is aware they will have to purchase walker privately if DME companies do not accept. Sister is also aware to follow up with Out Patient PT (SS has provided their phone# and address).
--- NOTE | 2025-01-23 15:33 | PD.RESPRO ---
Documentation for date of: 01/23/25 Subjective Subjective Interval history: Pt is seen at bedside, she is standing by the bed. Denies any dizziness, however states her vision is blurry in both eyes. Pt denies any weakness, shortness of breath, palpitations or chest pain. Net fluid balance is -1150, BP is 159/88, HR 101, telemetry is reviewed and pt was in afib rate controlled. labs are reviewed and are within normal limits. Recommend once the amiodrip is finished to transition pt to Amiodarone 200mg BID, continue digoxin 0.125 QD, metoprolol XL 50 mg QD, and anticoagulation with eliquis 5mg BID. Pt will need close follow up with cardiology after discharge. No cardiac complaints at this time. Exam Vital Signs Temp Pulse Resp BP Pulse Ox O2 Del Method 97.6 F 113 H 17 123/77 98 Room Air 01/23/25 12:00 01/23/25 14:52 01/23/25 12:00 01/23/25 14:52 01/23/25 12:00 01/23/25 12:00 Narrative Exam GENERAL: A&Ox3 , Ghanaian speaking, cooperative and well groomed female, Awake, Not in acute distress NEURO: no focal neurological deficits noted other than pt complains of blurry vision HEENT: Atraumatic, Normocephalic. mucous membranes moist. Eyes open, symmetrical, & clear HEART: irregular rate LUNGS: Clear to auscultation with no wheezing or crackles. ABDOMEN: soft, non-distended, non-tender, bowel sounds heard, no guarding or rebound tenderness SKIN: No Rash or ecchymoses EXTREMITIES: No edema, tenderness, able to move all 4 extremities, pedal pulses palpated Objective Labs 01/23/25 05:23 01/23/25 05:23 Labs: Laboratory Results - last 24 hr 01/23/25 05:23 WBC 8.0 RBC 4.76 Hgb 14.0 Hct 40.7 MCV 86 MCH 29.4 MCHC 34.4 RDW Std Deviation 42.5 Plt Count 198 Neut % (Auto) 69 Lymph % (Auto) 19 [place] % (Auto) 10 Eos % (Auto) 1 Baso % (Auto) 0 Neut # (Auto) 5.6 Lymph # (Auto) 1.5 [place] # (Auto) 0.8 Eos # (Auto) 0.1 Baso # (Auto) 0.0 Immature Gran # (Auto) 0.02 H Absolute Nucleated RBC 0.00 Immature Gran % 0 Nucleated RBC % 0 PT 11.9 INR 1.1 APTT 28.4 D Sodium 145 Potassium 3.9 Chloride 106 Carbon Dioxide 29.1 Anion Gap 10 BUN 12 Creatinine 0.8 Estim Creat Clear Calc 67.4 eGFR > 60 BUN/Creatinine Ratio 15 Glucose 107 H Calculated Osmolality 288 Calcium 9.1 Corrected Calcium 9.1 Phosphorus 3.5 Magnesium 2.1 Total Bilirubin 0.8 AST 29 ALT 34 Alkaline Phosphatase 89 Total Protein 6.7 Albumin 4.0 Globulin 2.7 Albumin/Globulin Ratio 1.5 Quality Measures Quality Measures none Assessment & Plan Assessment Current Active Medications: Generic Name Dose Route Start Last Admin Trade Name Freq PRN Reason Stop Dose Admin Acetaminophen 650 mg 01/21/25 16:43 Acetaminophen 325 Mg Tablet PO 02/20/25 16:42 Q6H PRN PAIN OR FEVER > 101 Apixaban 5 mg 01/22/25 13:30 01/23/25 08:01 Apixaban 2.5 Mg Tablet PO 02/21/25 13:29 5 mg BID ALISA Administration Aspirin 81 mg 01/23/25 10:00 01/23/25 09:54 Aspirin Ec 81 Mg Tabec PO 02/22/25 09:59 81 mg QDAY ALISA Administration Atorvastatin Calcium 80 mg 01/22/25 03:25 01/22/25 20:33 Atorvastatin Calcium 20 Mg Tablet PO 02/21/25 03:24 80 mg HS ALISA Administration Digoxin 0.125 mg 01/23/25 09:00 01/23/25 08:02 Digoxin 0.125 Mg Tablet PO 02/22/25 08:59 0.125 mg QDAY ALISA Administration Famotidine 20 mg 01/21/25 21:00 01/23/25 08:02 Famotidine Inj 10 Mg/Ml Vial 2 Ml IVP 02/20/25 20:59 20 mg BID ALISA Administration Furosemide 20 mg 01/24/25 09:00 Furosemide 20 Mg Tablet PO 02/23/25 08:59 QAM ALISA Amiodarone HCl/Dextrose 360 mg in 200 mls @ 16.667 mls/hr 01/23/25 01:29 01/23/25 14:52 Nexterone Ivpb IV 02/22/25 01:28 16.667 mls/hr .Q12H ALISA Administration Metoprolol Succinate 50 mg 01/24/25 09:00 Metoprolol Succinate Xl 25 Mg Tabcr PO 02/23/25 08:59 QDAY ALISA Ondansetron HCl 4 mg 01/21/25 16:43 Ondansetron Inj 2 Mg/Ml Inj 2 Ml IVP 02/20/25 16:42 Q6H PRN NAUSEA OR VOMITING Protocol Plan Ms. Blanco is a Ghanaian-speaking only 65-year-old female with past medical history significant for hypertension presented to the ED on 01/21/2025 complaining of dizziness and a throbbing headache. Patient was admitted to the hospital for a complete stroke workup and was found to be in A-fib/flutter with RVR with heart rate of 150s. Patient was started on amiodarone drip as well as oral diltiazem and for anticoagulation patient was started on a heparin drip and now transitioned to eliquis. Cardiology is consulted for new onset of A-fib as well as HFrEF found on echo cardiogram done with bubble study. Patient has a negative bubble study #New onset A-fib with RVR #Chronic systolic HF, HFrEF with EF 25% #Elevated troponins, NSTEMI type ll due to a-fib #Uncontrolled primary hypertension -EKG showed A-fib with RVR, rate 161 QTc 431 -On admission pt endorses to multiple episodes of palpitations and shortness of breath over the last year, pt does complain of dizziness but denies syncopal episodes. -Currently pt is not in acute decompensated HF, pt denies any shortness of breath and is saturating well on room air, laying flat (denies orthpnea or PND) and on physical exam pt does not have LE edema. -Troponin 0.164, BNP 216. [id number] score of 2. HAS-BLED score 2 NYHA ll -ECHO: Normal LV size, wall thickness. Global LV systolic function is severely decreased. Estimated EF at 25 %. The RV is normal in size and systolic function. The estimated RVSP, 49 mmHg. RAP15. Mild MR and TR. Dilated IVC. Plan: -Recommend once the amiodrip is finished to transition pt to Amiodarone 200mg BID, continue digoxin 0.125 QD, metoprolol XL 50 mg QD with goal HR <110 and anticoagulation with eliquis 5mg BID -Pt will need close follow up with cardiology after discharge. -Keep potassium >4 and Mag > 2 -Monitor telemetry closely -Pt will slowly need to be started on the remainder of GDMT as BP tolerates. On discharge pt will need GDMT for 90 days, with repeat echo in 3 months, if EF remains < 30% pt will likely need ICD/INTERNAL MEDICINE DOCTOR -Daily weights -Strict I's and O's -Fluid restriction to 2000ml #Acute Left cerebellar stroke -MRI (01/21/2025): Large acute infarcts left cerebellar hemisphere left vermis -CTA (01/22/2025): Acute infarct left cerebellar hemisphere non-hemorrhagic -management as per primary and neurology team Assessment and plan discussed with my attending physician Dr. Clem Boudreaux (PGY-2)- Internal medicine resident
--- NOTE | 2025-01-23 19:32 | ESPR_ITS ---
Documentation for date of: 01/23/25 Subjective Subjective Interval history: Patient was seen in telemetry today at the bedside. Reports blurry vision and left frontal headache, both of which have improved since admission. Exam Vital Signs Temp Pulse Resp BP Pulse Ox O2 Del Method 97.0 F 98 16 133/86 H 99 Room Air 01/23/25 16:00 01/23/25 16:00 01/23/25 16:00 01/23/25 16:00 01/23/25 16:00 01/23/25 16:00 Narrative Exam General: No acute distress, well nourished Eye: PERRL, EOMI, normal conjunctiva, no scleral icterus HENT: Normocephalic, atraumatic, hearing intact to conversation at normal volume, moist oral mucosa Neck: Supple, non-tender, no JVD, no lymphadenopathy Lungs: Non-labored respirations, symmetric chest rise Heart: Peripheral pulses intact bilaterally Abdomen: Soft, non-tender, non-distended Musculoskeletal: Normal range of motion and strength Skin: Skin is warm, dry, no rashes or lesions. Psychiatric: Cooperative, appropriate mood and affect Neurologic: Mental status: Orientation: Oriented to person, place, time, and situation Communication: Patient is cooperative and can follow simple instructions Language: Speech fluent, normal rate and volume, comprehension intact Cranial nerves: CN II: Visual soares intact CN III: Pupils equal, round, and reactive to light CN III, IV, : No gaze deviation, no nystagmus Horizontal pursuit: intact Vertical pursuit: intact Ptosis: none CN V: Facial sensation to light touch intact bilaterally at the forehead, cheeks, and jaw line CN VII: Face symmetric, no facial droop appreciated CN VIII: Able to hear and respond to conversation at normal volume, intact to finger rub CN IX, X: Palate elevation symmetric, uvula midline CN XI: Head turn and shoulder shrug strong, symmetric bilaterally CN XII: Normal tongue protrusion without deviation, no fasciculations Motor: Normal bulk and tone No atrophy No abnormal movements or fasciculations Muscle strength: Shoulder abduction: R 5/5 L 5/5 Elbow flexion: R 5/5 L 5/5 Elbow extension: R 5/5 L 5/5 Hip flexion: R 5/5 L 5/5 Hip extension: R 5/5 L 5/5 Knee flexion: R 5/5 L 5/5 Knee extension: R 5/5 L 5/5 Sensory: RUE: Light touch intact LUE: Light touch intact RLE: Light touch intact LLE: Light touch intact Reflexes: Biceps (C5-6): R 2+ L 2+ Brachioradialis (C5-6): R 2+ L 2+ Triceps (C7-8): R 2+ L 2+ Patellae (L3-4): R 2+ L 2+ Cerebellum: RUE: No dysmetria (finger to nose), no dysdiadochokinesia (rapid alternating movements) LUE: No dysmetria (finger to nose), no dysdiadochokinesia (rapid alternating movements) Gait: Deferred Objective Labs 01/24/25 05:11 01/24/25 05:11 Labs: Laboratory Results - last 24 hr 01/23/25 05:23 WBC 8.0 RBC 4.76 Hgb 14.0 Hct 40.7 MCV 86 MCH 29.4 MCHC 34.4 RDW Std Deviation 42.5 Plt Count 198 Neut % (Auto) 69 Lymph % (Auto) 19 [place] % (Auto) 10 Eos % (Auto) 1 Baso % (Auto) 0 Neut # (Auto) 5.6 Lymph # (Auto) 1.5 [place] # (Auto) 0.8 Eos # (Auto) 0.1 Baso # (Auto) 0.0 Immature Gran # (Auto) 0.02 H Absolute Nucleated RBC 0.00 Immature Gran % 0 Nucleated RBC % 0 PT 11.9 INR 1.1 APTT 28.4 D Sodium 145 Potassium 3.9 Chloride 106 Carbon Dioxide 29.1 Anion Gap 10 BUN 12 Creatinine 0.8 Estim Creat Clear Calc 67.4 eGFR > 60 BUN/Creatinine Ratio 15 Glucose 107 H Calculated Osmolality 288 Calcium 9.1 Corrected Calcium 9.1 Phosphorus 3.5 Magnesium 2.1 Total Bilirubin 0.8 AST 29 ALT 34 Alkaline Phosphatase 89 Total Protein 6.7 Albumin 4.0 Globulin 2.7 Albumin/Globulin Ratio 1.5 Quality Measures Quality Measures none Assessment & Plan Assessment Current Active Medications: Generic Name Dose Route Start Last Admin Trade Name Freq PRN Reason Stop Dose Admin Acetaminophen 650 mg 01/21/25 16:43 Acetaminophen 325 Mg Tablet PO 02/20/25 16:42 Q6H PRN PAIN OR FEVER > 101 Apixaban 5 mg 01/22/25 13:30 01/23/25 08:01 Apixaban 2.5 Mg Tablet PO 02/21/25 13:29 5 mg BID ALISA Administration Aspirin 81 mg 01/23/25 10:00 01/23/25 09:54 Aspirin Ec 81 Mg Tabec PO 02/22/25 09:59 81 mg QDAY ALISA Administration Atorvastatin Calcium 80 mg 01/22/25 03:25 01/22/25 20:33 Atorvastatin Calcium 20 Mg Tablet PO 02/21/25 03:24 80 mg HS ALISA Administration Digoxin 0.125 mg 01/23/25 09:00 01/23/25 08:02 Digoxin 0.125 Mg Tablet PO 02/22/25 08:59 0.125 mg QDAY ALISA Administration Famotidine 20 mg 01/21/25 21:00 01/23/25 08:02 Famotidine Inj 10 Mg/Ml Vial 2 Ml IVP 02/20/25 20:59 20 mg BID ALISA Administration Furosemide 20 mg 01/24/25 09:00 Furosemide 20 Mg Tablet PO 02/23/25 08:59 QAM ALISA Amiodarone HCl/Dextrose 360 mg in 200 mls @ 16.667 mls/hr 01/23/25 01:29 01/23/25 14:52 Nexterone Ivpb IV 02/22/25 01:28 16.667 mls/hr .Q12H ALISA Administration Metoprolol Succinate 50 mg 01/24/25 09:00 Metoprolol Succinate Xl 25 Mg Tabcr PO 02/23/25 08:59 QDAY ALISA Ondansetron HCl 4 mg 01/21/25 16:43 Ondansetron Inj 2 Mg/Ml Inj 2 Ml IVP 02/20/25 16:42 Q6H PRN NAUSEA OR VOMITING Protocol Plan #Acute CVA 2/2 new-onset afib with RVR Continues to have blurry vision and left frontal headache. No focal neuro deficit on exam. CT head w/o: Acute nonhemorrhagic infarct left cerebellar hemisphere, noted on the brain MRI CTA: No significant neck arterial stenoses. No LVO or thrombus. Acute infarct left cerebellar hemisphere nonhemorrhagic MRI stroke: Left vermis acute infarct TTE: negaitve for PFO/ASD. LVEF 25%. Global systolic function decreased. TSH low 0.31, lipids WNL, troponin high 0.164 PT/OT recommended outpatient PT Plan: - Afib management per primary team - Continue anticoagulation (Apixaban 5 mg BID), rate control (Amiodarone IV, Digoxin 0.125 mg daily, Metorpolol succinate 50 mg daily), and high intensity statin (Atorvastatin 80 mg daily) #Hypertension BP inpatient: 120-130/70s, stable Home meds: Benazepril 20 mg daily Plan: - Management per primary team #HFrEF, EF 25% Plan: - Management per primary team Plan discussed with Dr. Omar Brown, PGY1 Attending Provider Attestation/Addendum I personally have seen and examined the patient at the bedside and agreed with resident's findings, assessment and plan of care. Patient does not have any objective neurological deficit, she continues to have some dizziness and headache. She is stable for discharge home on Eliquis and statin. Follow-up in 2 weeks
[2025-01-23] MEDS: ATORVASTATIN CALCIUM 20 MG TABLET 80 MG PO (20:53)
--- NOTE | 2025-01-23 22:30 | PC.NURSE ---
DR. MARTIN MADE AWARE OF PT CONVERTING TO SB LOWEST HR 54. STATES TO HOLD AMIODARONE DRIP FOR NOW. TO PLACE ORDERS FOR AMIODARONE PO.
[2025-01-24] VITALS (10 sets, daily range): BP systolic 136–165; BP diastolic 68–84; PULSE 55–68; RESP 18–97; TEMP 36.5–37.1; O2SAT 98; BMI 37.1
[2025-01-24 06:19] LABS: Basophils # (Auto) 0.0 Thou/mm3 (0.0-0.2); Basophils % (Auto) 0 % (0-2.5); Eosinophils # (Auto) 0.2 Thou/mm3 (0.0-0.5); Eosinophils % (Auto) 2 % (0-10); Hematocrit 41.4 % (36.0-46.0); Hemoglobin 14.2 g/dL (12.0-16.0); Immature Granulocytes Auto 0.02 Thou/mm3 (0.00-0.00); Lymphocytes # (Auto) 1.6 Thou/mm3 (1.0-4.8); Lymphocytes % (Auto) 18 % (10-50); Mean Corpuscular HGB Conc 34.3 g/dl (31.0-37.0); Mean Corpuscular Hemoglobin 29.7 pg (25.0-35.0); Mean Corpuscular Volume 87 fL (80-100); Monocytes # (Auto) 0.7 Thou/mm3 (0.0-0.8); Monocytes % (Auto) 8 % (0-12); Neutrophils # (Auto) 6.3 Thou/mm3 (1.8-7.7); Neutrophils % (Auto) 72 % (37-80); Nucleated Red Blood Cell # 0.00 Thou/mm3 (0.00-0.00); Nucleated Red Blood Cell % 0 /100 WBC (0); Platelet Count 219 Thou/mm3 (140-440); RDW Standard Deviation 41.9 fL (36.4-46.3); Red Blood Count 4.78 Miln/mm3 (4.00-5.20); White Blood Count 8.8 Thou/mm3 (3.6-11.0)
[2025-01-24 06:55] LABS: Alanine Aminotransferase 28 U/L (10-49); Albumin, Serum 4.1 gm/dL (3.4-4.8); Albumin/Globulin Ratio 1.5 (1.2-2.2); Alkaline Phosphatase 84 U/L (46-116); Anion Gap 11 (7-16); Aspartate Amino Transferase 24 U/L (0-34); BUN/Creatinine Ratio 15 Ratio (12-20); Bilirubin,Total 1.3 mg/dL (0.3-1.2); Blood Urea Nitrogen 12 mg/dL (9-23); Calcium 9.3 mg/dL (8.3-10.6); Calcium (Corrected) 9.3 mg/dL (8.5-10.1); Carbon Dioxide 25.6 mMol/L (20.0-31.0); Chloride 107 mMol/L (98-107); Creatinine (Component) 0.8 mg/dL (0.6-1.3); Estimated Creatinine Clearance 67.4 mL/min (>60); Globulin 2.8 gm/dL (2.3-3.5); Glucose 101 mg/dL (74-106); Magnesium 1.8 mg/dL (1.6-2.6); Osmolality,Calculated 286 (275-295); Phosphorous 4.2 mg/dL (2.4-5.1); Potassium 4.0 mMol/L (3.4-5.1); Sodium 144 mMol/L (136-145); Total Protein 6.9 gm/dL (5.7-8.2); eGFR > 60 See Note
[2025-01-24] MEDS: AMIODARONE HCL 200 MG TABLET PO (08:08)
[2025-01-24] MEDS: ASPIRIN EC 81 MG TABEC PO (08:09)
[2025-01-24] MEDS: METOPROLOL SUCCINATE XL 25 MG TABCR 50 MG PO (08:09)
[2025-01-24] MEDS: APIXABAN 2.5 MG TABLET 5 MG PO (08:09)
[2025-01-24] MEDS: DIGOXIN 0.125 MG TABLET PO (08:10)
[2025-01-24] MEDS: FAMOTIDINE INJ 10 MG/ML VIAL 2 ML 20 MG IVP (08:12)
--- NOTE | 2025-01-24 11:24 | PD.RESPRO ---
Documentation for date of: 01/24/25 Exam Vital Signs Temp Pulse Resp BP Pulse Ox O2 Del Method 98.7 F 65 23 H 165/84 H 98 Room Air 01/24/25 08:00 01/24/25 08:11 01/24/25 08:00 01/24/25 08:11 01/24/25 08:00 01/24/25 08:00 Objective Labs 01/24/25 05:11 01/24/25 05:11 Labs: Laboratory Results - last 24 hr 01/24/25 05:11 WBC 8.8 RBC 4.78 Hgb 14.2 Hct 41.4 MCV 87 MCH 29.7 MCHC 34.3 RDW Std Deviation 41.9 Plt Count 219 Neut % (Auto) 72 Lymph % (Auto) 18 [place] % (Auto) 8 Eos % (Auto) 2 Baso % (Auto) 0 Neut # (Auto) 6.3 Lymph # (Auto) 1.6 [place] # (Auto) 0.7 Eos # (Auto) 0.2 Baso # (Auto) 0.0 Immature Gran # (Auto) 0.02 H Absolute Nucleated RBC 0.00 Immature Gran % 0 Nucleated RBC % 0 Sodium 144 Potassium 4.0 Chloride 107 Carbon Dioxide 25.6 Anion Gap 11 BUN 12 Creatinine 0.8 Estim Creat Clear Calc 67.4 eGFR > 60 BUN/Creatinine Ratio 15 Glucose 101 Calculated Osmolality 286 Calcium 9.3 Corrected Calcium 9.3 Phosphorus 4.2 Magnesium 1.8 Total Bilirubin 1.3 H D AST 24 ALT 28 Alkaline Phosphatase 84 Total Protein 6.9 Albumin 4.1 Globulin 2.8 Albumin/Globulin Ratio 1.5 Quality Measures Quality Measures none Assessment & Plan Assessment Current Active Medications: Generic Name Dose Route Start Last Admin Trade Name Freq PRN Reason Stop Dose Admin Acetaminophen 650 mg 01/21/25 16:43 Acetaminophen 325 Mg Tablet PO 02/20/25 16:42 Q6H PRN PAIN OR FEVER > 101 Amiodarone HCl 200 mg 01/24/25 09:00 01/24/25 08:08 Amiodarone Hcl 200 Mg Tablet PO 02/23/25 08:59 200 mg BID ALISA Administration Apixaban 5 mg 01/22/25 13:30 01/24/25 08:09 Apixaban 2.5 Mg Tablet PO 02/21/25 13:29 5 mg BID ALISA Administration Aspirin 81 mg 01/23/25 10:00 01/24/25 08:09 Aspirin Ec 81 Mg Tabec PO 02/22/25 09:59 81 mg QDAY ALISA Administration Atorvastatin Calcium 80 mg 01/22/25 03:25 01/23/25 20:53 Atorvastatin Calcium 20 Mg Tablet PO 02/21/25 03:24 80 mg HS ALISA Administration Digoxin 0.125 mg 01/23/25 09:00 01/24/25 08:10 Digoxin 0.125 Mg Tablet PO 02/22/25 08:59 0.125 mg QDAY ALISA Administration Famotidine 20 mg 01/21/25 21:00 01/24/25 08:12 Famotidine Inj 10 Mg/Ml Vial 2 Ml IVP 02/20/25 20:59 20 mg BID ALISA Administration Furosemide 20 mg 01/24/25 09:00 01/24/25 08:11 Furosemide 20 Mg Tablet PO 02/23/25 08:59 20 mg QAM ALISA Administration Lisinopril 20 mg 01/24/25 10:45 Lisinopril 20 Mg Tablet PO 02/23/25 10:44 QDAY ALISA Metoprolol Succinate 50 mg 01/24/25 09:00 01/24/25 08:09 Metoprolol Succinate Xl 25 Mg Tabcr PO 02/23/25 08:59 50 mg QDAY ALISA Administration Ondansetron HCl 4 mg 01/21/25 16:43 Ondansetron Inj 2 Mg/Ml Inj 2 Ml IVP 02/20/25 16:42 Q6H PRN NAUSEA OR VOMITING Protocol
[2025-01-24] MEDS: ACETAMINOPHEN 325 MG TABLET 650 MG PO (12:02)
--- NOTE | 2025-01-24 17:42 | ESDS_ITS ---
<Statement entered by Ligia Cuadra MD - 01/28/25 11:48> I reviewed above note and agree with findings and plans. I have also personally examined the patient with medicine team and went over assessment and plan with medical team including international marketing intern and resident physician. Planned Discharge Date 01/24/25 DS: Providers Provider Date of admission: 01/21/25 16:43 Primary care physician: Physician No Primary/Family Admitting Provider: Ligia Cuadra MD Attending Provider on Admission: Ligia Cuadra MD Consults: 01/22/25 03:26 Referral Physical Therapy Routine Comment: Physician Instructions: Referral Speech Therapy Routine Comment: 01/22/25 03:28 Consult to Neurology / Tele-Neurology Routine Comment: Consulting Provider: Danny Nelson 01/22/25 04:22 Referral Registered Dietitian Routine Comment: ADMIT QUESTIONAIRE; BITES TONGUE WHEN EATING (NEW) 01/22/25 15:41 Consult to Cardiology Routine Comment: Consulting Provider: Leon Nj Attending Provider on DC: RESIDENT Azeb Discharging Provider: RESIDENT Azeb DS: Diagnosis Problem List Completed Was Problem List Reviewed/Reconciled?: Yes Hospital Course Hospital Course Hospital course: 65 year old female with past medical history of hypertension, Afib, CHF, HFrEF 25% who was admitted on 01/22/2025 for atrial fibrillation with rvr and subsequently found to have Acute Left cerebellar stroke. ED course: Patient was brought back to exam room 5 once her atrial fibrillation was identified. On the monitor, her heart rate ranged between 140 to 181 bpm. 15 mg of diltiazem was provided IV. Heart rate improved and ranged between 110- 141. After approximately 20 minutes, a repeat dose of 15mg of diltiazem was provided. Rate improved to 90 to 110 bpm. Hospital Course: MRI noted for (01/21/2025): Large acute infarcts left cerebellar hemisphere left vermis. Repeat CT obtained given concern for hemorragic conversion, repeat CT negative for any acute bleeding. Given CVA, high intensity statins recommended, started on Atorvastatin 80 mg at night and aspirin. Atrial fibrillation w/ rvr Amiodarone drip added w/ heparin drip which eventually transitioned to Amiodarone 200mg PO BID and Eliquis 2.5 mg once daily BID. Echo noted to have ejection fraction of 25% global LV systolic function. Patient started on GDMT including Metoprolol XL 50 mg qday and Benazepril. Lasix 20 mg oral once daily to reduce fluid overload. Please follow up with cardiology to continue to add GDMT, including Spironolactone, if blood pressure permits. #CVA, ischemic, large acute left cerebellar hemisphere left vermis. #Afib with RVR, resolved. #new onset of Atrial Fibrillation #new onset of congestive heart failure #HFrEF, EF 25% (01/22/2025) #Troponemia, likely type II demand ischemia, resolved. Instructions: -Please take Aspirin, Atorvastatin for stroke and hyperlipidemia -Please take Amiodarone 200 mg orally twice daily, Digoxin 0.125 mcg once daily, and Metoprolol 50 mg orally once daily for atrial fibrillation -Please take Lasix 20 mg once daily, a water pill to remove extra water -Please monitor weight and report changes to cardiology and limit salt intake to no more than 2 grams per day. -Please follow up with your primary care provider within one week of discharge -Please follow up with cardiology, Dr. Nj, within one week of discharge. -If your symptoms worsen,please seek immediate medical attention and return to your nearest emergency room -If you do not have a primary care provider, you may follow up at the [facility] at [address] [place] [address] [address], [place] [address], Safe to discharge to Home Assessment and plan discussed with my attending physician Dr. Cuadra and Dr. Ocampo (PGY-2) Dr. Verduzco (PGY-1)- Internal medicine resident - The patient's plan was discussed with attending Dr. Khalif Ocampo MD PGY2 Internal Medicine Time Spent with Patient Time attestation: Total time spent providing and/or coordinating discharge services: at least 30 minutes of care and coordination. Time spent: Greater than 30 minutes Exam Vital Signs Temp Pulse Resp BP Pulse Ox O2 Del Method 97.7 F 61 24 H 155/76 H 98 Room Air 01/24/25 12:00 01/24/25 12:02 01/24/25 12:00 01/24/25 12:02 01/24/25 12:00 01/24/25 12:00 Narrative Exam GENERAL: AAOx3, Patient is in normal mood and affect, cooperative HEENT: Normocephalic, atraumatic.? Pupils are equal and reactive.? Oral mucosa is moist. Patent Nares NECK: Supple, nontender, no thyromegaly, no meningismus, no JVD, no step offs CHEST: Symmetrical, atraumatic, and with equal expansion , Nontender on palpation no deformity and no crepitus. CARDIOVASCULAR: Heart irregularly irregular rhythm. LUNGS: Clear to auscultation bilaterally with symmetrical chest rise.? No laboring tachypnea or wheezing.? No intercostal subcostal retraction.? No rales and no rhonchi. ABDOMEN: Soft, flat, nontender to palpation, no guarding or rebound tenderness.? Active and normal bowel sounds. EXTREMITIES: Nontender.? No edema.? No cyanosis.? Patient is able to move all 4 extremities well, with full ROM and good CSM. SKIN: Warm and dry, no jaundice or rashes noted. MUSCULOSKELETAL: No lumbar or midline bony tenderness.? There is no CVA tenderness.? No paraspinal muscle spasm or tenderness. NEURO: There is no focal neurologic deficits noted.? Discharge Plan Plan Patient Disposition: HOME (Self Care) Patient condition on transfer: Stable Care Plan Goals: Instructions: -Please take Aspirin, Atorvastatin for stroke and hyperlipidemia -Please take Amiodarone 200 mg orally twice daily, Digoxin 0.125 mcg once daily, and Metoprolol 50 mg orally once daily for atrial fibrillation -Please take Lasix 20 mg once daily, a water pill to remove extra water -Please monitor weight and report changes to cardiology and limit salt intake to no more than 2 grams per day. -Please follow up with your primary care provider within one week of discharge -Please follow up with cardiology, Dr. Nj, within one week of discharge. -If your symptoms worsen,please seek immediate medical attention and return to your nearest emergency room -If you do not have a primary care provider, you may follow up at the [facility] at [address], [place] [address], Instrucciones de Olivia M?dica (en espa?ol): * Por favor, tome Aspirina y Atorvastatina para el accidente cerebrovascular y la hiperlipidemia. * Por favor, tome Amiodarona 200 mg por v?a oral dos veces al d?a, Digoxina 125 mcg danii vez al d?a, y Metoprolol 50 mg por v?a oral danii vez al d?a para la fibrilaci?n auricular. * Por favor, tome Lasix 20 mg danii vez al d?a; es un diur?diane para eliminar el exceso de agua. * Por favor, monitoree otto peso y reporte cualquier cambio al equipo de cardiolog?a, y limite otto consumo de allie a no m?s de 2 gramos por d?a. * Por favor, acuda a danii consulta con otto m?dico de atenci?n primaria dentro de danii semana despu?s del olivia. * Por favor, acuda a danii consulta con cardiolog?a, Dr. Nj, dentro de danii semana despu?s del olivia. * Si bright s?ntomas empeoran, busque atenci?n m?dica inmediata y acuda a la vaibhav de emergencias m?s cercana. * Si no tiene un m?dico de atenci?n primaria, puede acudir al [facility]?angelia de praveen en: [address] [facility] [address], [place] [address] Tel?fono: Prescriptions/Referrals Prescriptions/Med Rec: New atorvastatin 20 mg Tablet 80 mg PO HS 30 Days Qty: 120 0RF amiodarone 200 mg Tablet 200 mg PO BID 30 Days Qty: 60 0RF digoxin 125 mcg (0.125 mg) Tablet 0.125 mg PO QDAY 30 Days Qty: 30 0RF furosemide 20 mg Tablet 20 mg PO QAM 30 Days Qty: 30 0RF metoprolol succinate 25 mg Tablet Extended Release 24 Hr 50 mg PO QDAY 30 Days Qty: 60 0RF Eliquis 2.5 mg Tablet 5 mg PO BID 30 Days Qty: 120 0RF Continued ondansetron HCl 8 mg tablet 8 mg PO QDAY PRN (Reason: nausea and vomiting) benazepril 20 mg tablet 20 mg PO QDAY 30 Days Qty: 30 0RF Referrals: [facility] [Outside] No Primary/Family,Physician [Primary Care Provider] - Leon Nj MD [Physician] - Patient/Caregiver Discharge Instructions Education Materials: Heart Failure Meds, AFL/Afib, Arm Care After a Stroke, Heart Failure Getting the Care ... Print Language: Eritrean Stand Alone Forms: Melanie Award Info., Patient Portal Info Letter Discharge Order Discharge Orders: Discharge (Routine); Ordered 01/24/25 Ordered By: Violetta Ocampo Quality Discharge Quality Measures VTE prophylaxis
== END 2025-01-24 12:52 | disposition home or self-care (01) | DRG 45 ==
LOC: SERX 15:23 → SERHOLD 17:33 → S2NX 01-22 04:04
PROVIDERS: Physician Assistant Medical; Admitting Provider Internal Medicine; Emergency Provider Emergency Medicine; Visit Provider Internal Medicine
DX: I63.442 Cerebral infarction due to embolism of left cerebellar artery (principal); I48.19 Other persistent atrial fibrillation; I50.22 Chronic systolic (congestive) heart failure; I11.0 Hypertensive heart disease with heart failure; E78.5 Hyperlipidemia, unspecified; I48.92 Unspecified atrial flutter; Q21.12 Patent foramen ovale; R13.10 Dysphagia, unspecified; H53.2 Diplopia; Z79.01 Long term (current) use of anticoagulants; Z79.82 Long term (current) use of aspirin; Z79.899 Other long term (current) drug therapy; Z86.73 Personal history of transient ischemic attack (TIA), and cerebral infarction without residual deficits; Z91.148 Patient's other noncompliance with medication regimen for other reason
CPT/HCPCS: 36415; 70450; 70496; 70498; 70551; 71045; 80053; 80061; 83036; 83735; 83880; 84100; 84443; 84484; 85025; 85610; 85730; 92610; 93005; 93306; 96374; 97162; 99291; A4649; J0283; J1644; J3490; Q9967; A9270

== ENCOUNTER 2025-02-21 10:35 | Outpatient (AMB) | payer MEDICAID, SELFPAY ==
[2025-02-21 11:24] VITALS: BP 143/77; PULSE 74; RESP 18; TEMP 36.8; O2SAT 96; BMI 36.5
--- NOTE | 2025-02-21 11:24 | PD.RESCLINIC ---
Vital Signs 02/21/25 11:24 Height 1.52 m Height Method Stated Weight 84.878 kg Weight Measurement Method Standing Scale BMI 36.5 BP 143/77 H Blood Pressure Source Automatic Cuff Blood Pressure Location Right Upper Arm Position Sitting Respiration 18 Pulse 74 Pulse Source Monitor Temp 98.2 F Temp Source Temporal Artery Scan Pulse Oximetry (%) 96 Oxygen Delivery Method Room Air Allergies/Meds Allergies & Medications Allergies No Known Drug Allergies Allergy (Verified 02/21/25 11:50) Medication Reconciliation cephalexin 500 mg capsule 500 mg PO BID 7 days #14 caps 02/25/25 [Rx] amiodarone 200 mg tablet 200 mg PO BID #60 tabs 02/26/25 [Rx] atorvastatin 80 mg tablet 80 mg PO QDAY #30 tabs 02/26/25 [Rx] benazepril 20 mg tablet 20 mg PO QDAY #30 tabs 02/26/25 [Rx] furosemide 20 mg tablet (Lasix) 20 mg PO QAM #30 tabs 02/26/25 [Rx] metoprolol succinate 50 mg tablet,extended release 24 hr 50 mg PO QDAY #30 tabs 02/26/25 [Rx] MA Intake Visit Data Collection New Patient or Established: Established Patient (seen at [facility] within 3 years) Seen by Clinical Staff ONLY (RN/MA): No Pain Present Currently: No Pain scale:: 0 Pain Scale Used: Marrero-Olvera/Numerical Professional Programmer Analyst Required: Yes PCP or OBGYN visit in last 3 months: No Hx Now: No Do You Feel Safe at Home: Yes Authorities Contacted: N/A Smoking Status Smoking Status: Never smoker Immunization / Flu Flu Vaccine in the Last 12 Months: No Flu Vaccine Exclusion Criteria: No Exclusion Criteria Past Medical History Past Medical History NEUROLOGIC: Negative Neurological Disorders CARDIAC: Positive Cardiac Disorders and Hypertension; Negative Congestive Heart Failure RESPIRATORY: Negative Chronic Obstructive Pulmonary Disease (COPD) or Asthma GASTROINTESTINAL: Negative Gastrointestinal Disorders GENITOURINARY: Negative Genitourinary Disorders or Renal Disease REPRODUCTIVE: Negative Pelvic Inflammatory Disease ENDOCRINE: Negative Endocrine Disorders, Diabetes Mellitus Type 1 or Diabetes Mellitus Type 2 HEMATOLOGIC: Negative Blood Disorders or Sickle Cell Disease OTHER HISTORY: Negative Falls or Cancer Surgical History SURGICAL: Negative Cardiac Surgery, Endocrine Surgery, Ear Surgery, Abdominal Surgery, Nephrectomy, Joint Replacement or Neurologic Surgery Social History SMOKING STATUS: Smoking status: Never smoker HOUSING: Housing: House LIVES WITH: Lives With: Family Patient Portal Questionaires Social History Living Situation History Housing: House Housing Other:: Patient resides in a home with grandchildren. Tobacco History Smoking Status: Never smoker Domestic Abuse History Do You Feel Safe at Home: Yes Review of Systems Report any current symptoms Only answer those that you have currently: Past Medical History Past Medical History Have you ever been diagnosed with any of the following: Cardiology Problems Congestive Heart Failure: No Hypertension: Yes Respiratory Problems Chronic Obstructive Pulmonary Disease (COPD): No Asthma: No Genital/Urinary Problems Renal Disease: No Reproductive Problems Pelvic Inflammatory Disease: No Endocrine Problems Diabetes Mellitus Type 1: No Diabetes Mellitus Type 2: No Blood Problems Sickle Cell Disease: No Other Problems Falls: No Cancer: No History of Present Illness HPI Narrative Ms Blanco is a 65-year-old female with past medical history of hypertension, atrial fibrillation, congestive heart failure, HFrEF EF 25% who was recently discharged from [facility] in January 2025 for ischemic CVA, patient was discharged on aspirin, atorvastatin, amiodarone, digoxin, metoprolol, Lasix, following senior cyber security analyst Dr. Nj outpatient. Patient presented to [facility] due to chief complaint of dizziness. 02/21/2025: Patient seen in clinic today, reported generalized weakness, was found to have left-sided facial weakness and left arm weakness she reported this started yesterday, patient did have some residual left-sided weakness however complained of worsening dizziness since yesterday, reports compliance with her medications outpatient. NIHSS score done in clinic today 6. Decision was made to send patient to emergency department for possible stroke recrudescence versus CVA. Review of Systems Review of Systems Systems Reviewed: All systems reviewed, normal except as documented Objective/Exam Narrative Physical exam: Gen: A&O X 3, NAD HEENT: NCAT, EOMI, Pupils reactive MARCO, not icteric. External ears normal. No rhinorrhea. Moist mucous membranes. Neck: Supple, full range of motion, no observable masses, No meningeal sign. Lungs: No Respiratory distress, clear bilateral. CV: RRR, no murmurs. Abdomen: Soft, nondistended, No rebound tenderness. MSK: No joint swelling, no redness, peripheral pulses presents, lumbar with no edema. Skin: No rashes, petechiae, lesions.. Neuro: Patient has mild facial asymmetry, but sensation on the left side of the face, scalp, upper and lower extremity are decreased compared to the right. Patient does have some residual left-sided weakness from her previous stroke, but otherwise no dysmetria and able to follow commands. NIHSS 6 Psych: Cooperative, appropriate mood and effect. Assessment & Plan Diagnosis / Problem List (1) Stroke: Status: Acute Qualifiers: Laterality of affected vessel: unspecified Assessment & Plan: Seen in clinic today, reported generalized weakness, was found to have left-sided facial weakness and left arm weakness she reported this started yesterday, patient did have some residual left-sided weakness however complained of worsening dizziness since yesterday, reports compliance with her medications outpatient. NIHSS score done in clinic today 6. Plan: - Decision was made to send patient to emergency department for possible stroke recrudescence versus CVA. - Patient's sister along with patient reported that she will drive her to the emergency department - Called and informed Dr. Nicholas Doe, ED resident about patient's symptoms and likely needing a neurologist evaluation. Plan Case discussed with Attending Physician Dr. Marjorie Melgar MD Internal Medicine PGY-2 Disclaimer: This note was dictated by speech recognition. Minor errors in administrative project coordinator may be present due to voice recognition software. Physician Billing New Patient New Patient: E/M Level 5-CPT 52722 Office Procedures [facility] Level of Care Nursing/Assessment Patient Status: Established Patient Nursing Assessment/Reassessment: Medication Reconciliation, Update PMH in EMR and Vital Signs Coordination of Care: Complex Care and Chronic Disease 1-5, Consent,records obtained, informed consent, Education Simp Pt/Fam and Staff clarify orders Established Patient Charge Established Patient Point Assignment: 85 Established Patient Point Charge: EP Level 3 (80-115)
== END 2025-02-21 12:13 | disposition home or self-care (01) ==
PROVIDERS: Supervising Provider Internal Medicine
DX: I69.354 Hemiplegia and hemiparesis following cerebral infarction affecting left non-dominant side (principal); I11.0 Hypertensive heart disease with heart failure; I50.20 Unspecified systolic (congestive) heart failure; I48.91 Unspecified atrial fibrillation; R42 Dizziness and giddiness
CPT/HCPCS: 99213; G0463

== ENCOUNTER 2025-02-21 11:46 | Inpatient (IN) | payer MEDICAID, SELFPAY ==
[2025-02-21] VITALS (27 sets, daily range): BP systolic 131–172; BP diastolic 56–115; PULSE 55–128; RESP 16–30; TEMP 36.4–37.4; O2SAT 96–99; BMI 18.1; BMI 37.8
--- NOTE | 2025-02-21 11:54 | PC.NURSE ---
STROKE ALERT CALLED 11:52.
--- NOTE | 2025-02-21 11:57 | EKG_ITS ---
[facility] Test Date: 2025-02-21 Pat Name: EVY KC Department: Room: - Gender: Female Belt Machine Operator: : [id number] Requested By: Samy Doe Order Number: [id number] Reading MD: Samy oDe Measurements Intervals Jachin Rate: 55 P: 54 CA: 194 QRS: 42 QRSD: 84 T: 57 QT: 400 QTc: 383 Interpretive Statements SINUS BRADYCARDIA Compared to ECG 01/21/2025 14:09:39 Atrial fibrillation no longer present Ventricular premature complex(es) no longer present Aberrant conduction of supraventricular beat(s) no longer present /store/S0/[id number].pdf
--- NOTE | 2025-02-21 11:57 | XR_ITS ---
Examination: CT brain head without contrast. 2-D sagittal coronal reconstructions Date and time of exam:February 21, 2025 1204 hours INDICATIONS: Stroke alert, onset focal neurologic deficit today left-sided dizziness body weakness numbness, history acute nonhemorrhagic infarct left cerebellar hemisphere on brain MRI January 21, 2025 COMPARISON: January 23, 2025 CTDI: vol (mGy):49.3 DLP: (mGycm):155 Technique: Multiple CT axial sections of the brain have been obtained, 5 mm slice thickness. Contrast has not been administered. 2-D sagittal, coronal reconstructions have been obtained Low dose protocols were performed. One or more of the following dose reduction techniques were used; automated exposure control, adjustment of the mA and/or KV according to patient size, use of iterative reconstruction technique. Findings: No significant ventricular enlargement. Old infarct left cerebellar hemisphere Intra-axial or extra-axial hemorrhage density is not seen. No mass effect or midline shift Basal cisterns are not remarkable. Fourth ventricle is midline. Cranial vault intact. Impression: Negative for acute hemorrhage, mass effect or midline shift
--- NOTE | 2025-02-21 11:57 | XR_ITS ---
Examination: CTA carotids with intravenous contrast CTA brain, head with intravenous contrast. 2-D sagittal, coronal reconstructions. 3-D reconstructions. Exam date and time: February 21, 2025 1214 hours INDICATIONS: Stroke alert, onset left-sided body weakness dizziness numbness today CTDI: vol (mGy) 43.7 DLP: (mGycm) 438 Technique: Multiple CTA axial brain, head carotid images post intravenous contrast injection 75 cc, [id number]. 2-D sagittal, coronal reconstructions. 3-D reconstructions, 3-D post processing including vascular maximum intensity projection images. Low dose protocols were performed. One or more of the following dose reduction techniques were used; automated exposure control, adjustment of the mA and/or KV according to patient size, use of iterative reconstruction technique. Findings: Multiple small left thyroid nodules No significant common carotid carotid bifurcation or internal carotid artery stenoses Dominant left vertebral artery with no significant vertebral artery stenoses in the neck Intracranial vertebral arteries fill Small basilar artery but no occlusion, posterior cerebral artery branches also fill with no occlusions Moderate calcification juxtasellar internal carotid arteries M1 segments middle cerebral arteries middle cerebral artery trifurcation vessels anterior cerebral vessels fill with no large vessel occlusions IMPRESSION: No significant neck arterial stenoses No cerebral large vessel arterial occlusions or thrombus
--- NOTE | 2025-02-21 11:57 | XR_ITS ---
Examination: AP chest single view TECHNIQUE: AP portable sitting chest single view Date and time: February 21, 2025 1231 hours Comparison January 21, 2025 INDICATIONS: Stroke alert today FINDINGS: Mild prominence left ventricle No aspiration pneumonia. Mild vascular congestion. Prominent osteopenia IMPRESSION: No aspiration pneumonia
--- NOTE | 2025-02-21 12:00 | EDNOTE_ITS ---
<Statement entered by Amy Orellana MD - 02/22/25 08:18> I, Amy Orellana MD, have reviewed the history, exam, and assessment of the patient. I have evaluated the patient independently and agree with the plan of care documented by [ ]. All diagnostic studies were reviewed and discussed. I confirm the diagnosis as documented by the Resident. I was present during the Medical Decision Making for this patient. The patient's plan of care was created between myself and the Resident and consistent with our discussion of the patient's case. ED General RME/HPI General Chief complaint: Dizziness Stated complaint: DIZZY, WEAKNESS, NUMBNESS L) SIDE Time Seen by Provider: 02/21/25 11:57 Arrival date/time: 02/21/25 11:46 RME / HPI RME / HPI narrative: 65-year-old female with past medical history of hypertension, A-fib (on Eliquis), recent CVA (left cerebellar hemisphere and left vermis on 01/2025), and HFrEF (EF 25% on 01/2025) came into the ED as advised by her primary care physi ihsan to come to the ER as patient had developed new onset numbness of the left side of face and body as well as left eyebrow showed deficits since yesterday around 6 PM. Patient states that these symptoms are new as compared to her residual symptoms from the previous CVA. States she has been compliant with all her prescribed medications. Otherwise no other complaints, denies SOB, CP, abdominal pain, dysuria, changes in BM. Related Data Home Medications ?Medication ?Instructions ?Recorded ?Confirmed ondansetron HCl 8 mg tablet 8 mg PO QDAY PRN nausea an d 01/22/25 02/21/25 vomiting Previous Rx's ?Medication ?Instructions ?Recorded amiodarone 200 mg tablet 200 mg PO BID 30 days #60 ta bs 01/24/25 apixaban 2.5 mg tablet (Eliquis) 5 mg (2 x 2.5 mg) PO BID 30 days 01/24/25 #120 tabs atorvastatin 20 mg tablet 80 mg (4 x 20 mg) PO HS 30 d ays 01/24/25 #120 tabs benazepril 20 mg tablet 20 mg PO QDAY 30 days #30 ta bs 01/24/25 digoxin 125 mcg (0.125 mg) tablet 0.125 mg PO QDAY 30 days #30 tabs 01/24/25 furosemide 20 mg tablet 20 mg PO QAM 30 days #30 tab s 01/24/25 metoprolol succinate 25 mg 50 mg (2 x 25 mg) PO QDAY 3 0 days 01/24/25 tablet,extended release 24 hr #60 tabs Allergies Allergy/AdvReac Type Severity Reaction Status Date / Time No Known Drug Allergies Allergy Verified 02/21/25 11:50 Review of Systems Review of Systems Systems Reviewed: All systems reviewed, normal except as documented Past Medical History Past Medical History Comments PMH COMMENT: PMH: hypertension, A-fib (on Eliquis), recent CVA (left cerebellar hemisphere and left vermis on 01/2025), and HFrEF (EF 25% on 01/2025) Allergies: NKDA Social Hx: Denies any smoking, drugs, alcohol ED Exam Narrative Physical exam: Gen: A&O X 3, NAD HEENT: NCAT, EOMI, Pupils reactive MARCO, not icteric. External ears normal. No rhinorrhea. Moist mucous membranes. Neck: Supple, full range of motion, no observable masses, No meningeal sign. Lungs: No Respiratory distress, clear bilateral. CV: RRR, no murmurs. Abdomen: Soft, nondistended, No rebound tenderness. MSK: No joint swelling, no redness, peripheral pulses presents, lumbar with no edema. Skin: No rashes, petechiae, lesions.. Neuro: Patient has no facial asymmetry, but sensation on the left side of the face, scalp, upper and lower extremity are decreased compared to the right. Patient does have some residual left-sided weakness from her previous stroke, but otherwise no dysmetria and able to follow commands. Psych: Cooperative, appropriate mood and effect. Course Quality Measures none Orders Category Date Time Status Bedside Blood Glucose NOW Care 02/21/25 11:57 Active COVID-19 Screening Questionnaire NOW Care 02/21/25 13:48 Active Link Cutter Q4H START 00 Care 02/21/25 11:57 Active Continuous Pulse Oximetry NOW Care 02/21/25 11:57 Completed Decision to Admit X1 Care 02/21/25 13:48 Active EKG (ED ONLY) *Do not use* NOW Care 02/21/25 11:57 Completed In and Out Catheter NEEDED Care 02/21/25 11:57 Active Insert IV NOW Care 02/21/25 11:57 Active NIH Stroke Scale now Care 02/21/25 11:57 Active NPO NOW Care 02/21/25 11:57 Active Neuro Check Q4H Care 02/21/25 11:57 Active Nurse Swallow Screen x1 Care 02/21/25 11:57 Active Consult to Neurology / Tele-Neurology Routine Cons 02/21/25 11:[address] angio stroke protocol Stat Exams 02/21/25 11:[address] stroke protocol Stat Exams 02/21/25 11:57 Completed EKG (ED Only) Stat Exams 02/21/25 11:57 Ordered XR chest 1V portable Stat Exams 02/21/25 11:57 Completed CBC Stat Lab 02/21/25 12:14 Completed Comprehensive Metabolic Panel Stat Lab 02/21/25 12:14 Completed Drug Screen,Urine Stat Lab 02/21/25 11:57 Ordered HCG Titer if Positive Stat Lab 02/21/25 12:14 Completed Magnesium Stat Lab 02/21/25 12:14 Completed Partial Thromboplastin Time Stat Lab 02/21/25 12:14 Completed Prothrombin Time with INR Stat Lab 02/21/25 12:14 Completed Troponin I Stat Lab 02/21/25 12:14 Completed Urinalysis Stat Lab 02/21/25 11:57 Ordered Urine Culture Stat Lab 02/21/25 11:57 Ordered Labetalol IV [Trandate IV] Med 02/21/25 11:57 Active 10 mg IVP Q15M PRN Ondansetron Inj [Zofran Inj] Med 02/21/25 11:57 Active 4 mg IVP Q4HR PRN Oxygen Delivery NOW RT 02/21/25 11:57 Active Vital Signs Vital signs: Vital Signs Temperature 98.6 F 02/21/25 11:59 Pulse Rate 80 02/21/25 11:59 Respiratory Rate 16 02/21/25 11:59 Blood Pressure 172/115 H 02/21/25 11:59 Pulse Oximetry (%) 98 02/21/25 11:59 Oxygen Delivery Method Room Air 02/21/25 11:59 Discharge Plan Plan Patient Disposition: Admit Acute Care w/in Hospital Prescriptions/Referrals Prescriptions/Med Rec: No Action ondansetron HCl 8 mg tablet 8 mg PO QDAY PRN (Reason: nausea and vomiting) atorvastatin 20 mg Tablet 80 mg PO HS 30 Days Qty: 120 0RF amiodarone 200 mg Tablet 200 mg PO BID 30 Days Qty: 60 0RF digoxin 125 mcg (0.125 mg) Tablet 0.125 mg PO QDAY 30 Days Qty: 30 0RF furosemide 20 mg Tablet 20 mg PO QAM 30 Days Qty: 30 0RF metoprolol succinate 25 mg Tablet Extended Release 24 Hr 50 mg PO QDAY 30 Days Qty: 60 0RF Eliquis 2.5 mg Tablet 5 mg PO BID 30 Days Qty: 120 0RF benazepril 20 mg tablet 20 mg PO QDAY 30 Days Qty: 30 0RF Problem List Clinical Impression: Atrial fibrillation with rapid ventricular response, Stroke Patient/Caregiver Discharge Instructions Print Language: Faroese Stand Alone Forms: Melanie Award Info., Patient Portal Info Letter [facility] Narrative [facility] hospital course: 11:50: Patient was seen and greeted by myself immediately upon arrival. Stroke alert was called and patient was taken to CT. 12: 15: Spoke with teleneurology who stated that patient's head CT was negative and that if head CTA was negative should get MRI MRA. Also recommended permissive hypertension and to continue on Eliquis for now also. 1:46: Patient noted to go into [facility], ordered magnesium 4gm IV. Spoke with IM resident concerning patient needing hospital admission for stroke rule out. IM team will take a look at the patient for admission. Case disclosed with Attending Dr. Reyna Doe PGY2 Disclaimer: Even though this this note was dictated by speech recognition and even though it was carefully revised there may still be minor errors in leather grader due to voice recognition software. Medication Administration(s) Medication Administration History Labetalol HCl (Labetalol Inj 5 Mg/Ml Vial 20 Ml) 10 mg IVP Q15M PRN PRN Reason: SBP=>180, DBP=>105 Ondansetron HCl (Ondansetron Inj 2 Mg/Ml Inj 2 Ml) 4 mg IVP Q4HR PRN PRN Reason: NAUSEA OR VOMITING Stop: 03/23/25 11:56
--- NOTE | 2025-02-21 12:24 | ESCONSULT_ITS ---
Tele Neuro Consultation Consultation Date 02/21/25 Most Recent Vital Signs Last Vital Signs Temp 98.6 F 02/21/25 11:59 Pulse 80 02/21/25 11:59 Resp 16 02/21/25 11:59 BP 172/115 H 02/21/25 11:59 Pulse Ox 98 02/21/25 11:59 O2 Del Method Room Air 02/21/25 11:59 Consultation Narrative [facility] Tele[facility] Patient Name:???EVY KC Date of :???1960 Identification Number:??? Date of Service:???02/21/2025 11:56:03 Diagnosis:?R20.2 - Paresthesia of skin Impression: ?Patient is a 65-year-old lady past medical history significant for left cerebellar stroke with residual left-sided weakness presents for evaluation of dizziness and left-sided numbness. ? ?Assessment ?Left-sided numbness ? ?Patient presents for new left-sided numbness. She has chronic left sided weakness from her recent left cerebellar stroke. She is on Eliquis. No thrombolytic therapy. CT head is negative. CT head and echo pending. Recommend MRI brain Our recommendations are outlined below. Recommendations: ? Stroke/Telemetry Floor ? Neuro Checks (Q4) ? Bedside Swallow Eval ? DVT Prophylaxis ? IV Fluids, Normal Saline ? Head of Bed 30 Degrees ? Euglycemia and Avoid Hyperthermia (PRN Acetaminophen) ? Antihypertensives PRN if Blood pressure is greater than 220/120 or there is a concern for End organ damage/contraindications for permissive HTN. If blood pressure is greater than 220/120 give labetalol PO or IV or Vasotec IV with a goal of 15% reduction in BP during the first 24 hours. Sign Out: ? Discussed with Emergency Department Provider Advanced Imaging:Advanced imaging has been ordered. Results pending. Metrics: Last Known Well: 02/20/2025 18:00:12 Dispatch Time: 02/21/2025 11:56:03 Arrival Time: 02/21/2025 11:46:12 Initial Response Time: 02/21/2025 11:57:53Symptoms: left sided numbness. Initial patient interaction: 02/21/2025 12:01:56 NIHSS Assessment Completed: 02/21/2025 12:21:38Patient is not a candidate for Thrombolytic. Thrombolytic Medical Decision: 02/21/2025 12:21:41Patient was not deemed candidate for Thrombolytic because of following reasons: LKW outside 4.[address] Head: I personally reviewed all the CT images that were available to me and it showed: no acute abnormalities Primary Provider Notified of Diagnostic Impression and Management Plan on: 02/21/2025 12:18:27 History of Present Illness:Patient is a 65 year old Female. Patient was brought by private transportation with symptoms of left sided numbness. Patient is a 65-year-old lady past medical history significant for left cerebellar stroke with residual left-sided weakness presents for evaluation of dizziness and left-sided numbness. The last known normal was last night around 6 PM. She describes having lightheadedness that has not resolved. She does endorse feeling left-sided numbness. She presents to the hospital for further evaluation and a stroke alert is activated. ? Past Medical History: ?Hypertension ?Hyperlipidemia ?There is no history of Diabetes Mellitus Medications: No Anticoagulant use? No Antiplatelet use Reviewed EMR for current medications Allergies:? Reviewed Social History: Smoking: No Alcohol Use: No Drug Use: No Family History: There is no family history of premature cerebrovascular disease pertinent to this consultation ROS : 14 Points Review of Systems was performed and was negative except mentioned in HPI. Past Surgical History: There Is No Surgical History Contributory To Today?s Visit ? Examination: BP(172/115),?Pulse(80),?Blood Glucose(201) 1A: Level of Consciousness - Alert; keenly responsive?+ 0 1B: Ask Month and Age - Both Questions Right?+ 0 1C: Blink Eyes & Squeeze Hands - Performs Both Tasks?+ 0 2: Test Horizontal Extraocular Movements - Normal?+ 0 3: Test Visual Gongora - No Visual Loss?+ 0 4: Test Facial Palsy (Use Grimace if Obtunded) - Normal symmetry?+ 0 5A: Test Left Arm Motor Drift - No Drift for 10 Seconds?+ 0 5B: Test Right Arm Motor Drift - No Drift for 10 Seconds?+ 0 6A: Test Left Leg Motor Drift - No Drift for 5 Seconds?+ 0 6B: Test Right Leg Motor Drift - No Drift for 5 Seconds?+ 0 7: Test Limb Ataxia (FNF/Heel-Benitez) - No Ataxia?+ 0 8: Test Sensation - Mild-Moderate Loss: Less Sharp/More Dull?+ 1 9: Test Language/Aphasia - Normal; No aphasia?+ 0 10: Test Dysarthria - Normal?+ 0 11: Test Extinction/Inattention - No abnormality?+ 0 NIHSS Score:?1 Pre-Morbid Modified Joann Scale:0 Points = No symptoms at all Spoke with :?Dr. Peterson This consult was conducted in real time using interactive audio and video technology. Patient was informed of the technology being used for this visit and agreed to proceed. Patient located in hospital and provider located at home/office setting. Patient is being evaluated for possible acute neurologic impairment and high probability of imminent or life-threatening deterioration. I spent total of 45 minutes providing care to this patient, including time for face to face visit via telemedicine, review of medical records, imaging studies and discussion of findings with providers, the patient and/or family. Dr Brandon Perdomo [facility] For Inpatient follow-up with [facility] physician please call [facility] at . As we are not an outpatient service for any post hospital discharge needs please contact the hospital for assistance. If you have any questions for the [facility] physicians or need to reconsult for clinical or diagnostic changes please contact us via [facility] at . Signature :?Brandon Perdomo
[2025-02-21 12:26] LABS: Basophils # (Auto) 0.0 Thou/mm3 (0.0-0.2); Basophils % (Auto) 0 % (0-2.5); Eosinophils # (Auto) 0.2 Thou/mm3 (0.0-0.5); Eosinophils % (Auto) 2 % (0-10); Hematocrit 43.7 % (36.0-46.0); Hemoglobin 14.9 g/dL (12.0-16.0); Immature Granulocytes Auto 0.05 Thou/mm3 (0.00-0.00); Lymphocytes # (Auto) 1.7 Thou/mm3 (1.0-4.8); Lymphocytes % (Auto) 23 % (10-50); Mean Corpuscular HGB Conc 34.1 g/dl (31.0-37.0); Mean Corpuscular Hemoglobin 29.4 pg (25.0-35.0); Mean Corpuscular Volume 86 fL (80-100); Monocytes # (Auto) 0.7 Thou/mm3 (0.0-0.8); Monocytes % (Auto) 10 % (0-12); Neutrophils # (Auto) 4.9 Thou/mm3 (1.8-7.7); Neutrophils % (Auto) 65 % (37-80); Nucleated Red Blood Cell # 0.00 Thou/mm3 (0.00-0.00); Nucleated Red Blood Cell % 0 /100 WBC (0); Platelet Count 191 Thou/mm3 (140-440); RDW Standard Deviation 44.7 fL (36.4-46.3); Red Blood Count 5.06 Miln/mm3 (4.00-5.20); White Blood Count 7.7 Thou/mm3 (3.6-11.0)
[2025-02-21 12:46] LABS: INR 1.0 (0.9-1.3); Partial Thromboplastin Time 26.4 Seconds (22.0-36.0); Prothrombin Time 10.7 Seconds (9.0-12.2)
[2025-02-21 12:51] LABS: HCG Titer if Positive Negative
[2025-02-21 13:04] LABS: Alanine Aminotransferase 30 U/L (10-49); Albumin, Serum 4.4 gm/dL (3.4-4.8); Albumin/Globulin Ratio 1.7 (1.2-2.2); Alkaline Phosphatase 123 U/L (46-116); Anion Gap 10 (7-16); Aspartate Amino Transferase 27 U/L (0-34); BUN/Creatinine Ratio 16 Ratio (12-20); Bilirubin,Total 0.9 mg/dL (0.3-1.2); Blood Urea Nitrogen 13 mg/dL (9-23); Calcium 9.2 mg/dL (8.3-10.6); Calcium (Corrected) 9.2 mg/dL (8.5-10.1); Carbon Dioxide 27.8 mMol/L (20.0-31.0); Chloride 104 mMol/L (98-107); Creatinine (Component) 0.8 mg/dL (0.6-1.3); Estimated Creatinine Clearance 44.8 mL/min (>60); Globulin 2.6 gm/dL (2.3-3.5); Glucose 194 mg/dL (74-106); Magnesium 1.6 mg/dL (1.6-2.6); Osmolality,Calculated 288 (275-295); Potassium 4.1 mMol/L (3.4-5.1); Sodium 142 mMol/L (136-145); Total Protein 7.0 gm/dL (5.7-8.2); eGFR > 60 See Note
[2025-02-21 13:06] LABS: Troponin I 0.073 ng/mL (0.0-0.045)
[2025-02-21] MEDS: Magnesium Sulfate 4 GM Ivpb 4 GM/50 ML BAG IV (14:07)
[2025-02-21 14:09] LABS: Collection Type, Urine Voided
[2025-02-21 14:15] LABS: Bilirubin,Urine Negative (Negative); Blood,Urine Negative (Negative); Clarity,Urine Clear (Clear/Hazy); Color,Urine Lt-Yellow (Lt Yel-Yel); Glucose, Urine 1+ (Negative); Ketones,Urine Negative (Negative); Leukocyte Esterase,Urine Negative (Negative); Nitrite,Urine Negative (Negative); PH,Urine 7.5 (5.0-7.0); Protein,Urine Negative (Neg - Trace); RBC,Urine 1 /hpf (0-3); Specific Gravity,Urine 1.045 (1.001-1.035); Squamous Epithelial Cell,Urine 1 /hpf (0-5); Urobilinogen,Urine Negative mg/dL (0.0-1.0); WBC,Urine 1 /hpf (0-5)
[2025-02-21 14:21] LABS: Amphetamine/Methamp Scrn,U Negative (Negative); Barbiturate Screen,Urine Negative (Negative); Benzodiazepines Screen,Urine Negative (Negative); Benzoylecgonine Screen, Ur Negative (Negative); Fentanyl Screen,Urine Negative (Negative); Opiate Screen,Urine Negative (Negative); THC Screen,Urine Negative (Negative)
--- NOTE | 2025-02-21 14:35 | ESHP_ITS ---
<Statement entered by David Rdz MD - 02/22/25 07:49> Senior Resident Attestation: I supervised/discussed management plan with equine intern physician Dr. Grayson, and was involved in the care of this patient. I personally saw and examined the patient and discussed the assessment and plan with the entire medicine team, including my attending. I agree with the assessment and plan as documented. Patient is a 65 years old female with PMH of Afib on Eliquis, HFrEF 25% (echo 01/22/25), recent CVA (acute infarct left cerebellar hemisphere, nonhemorrhagic) in January 2025 with no focal neuro deficit presented to the ED due to dizziness and right face and body numbness. Stroke alert was called, teleneurology consulted, head CT/CTA did not show acute new findings. Patient was noticed to have multiple changes of her heart rate between sinus bradycardia and Afib with RVR therefore cardiology was consulted. Patient was admitted for further management and brain MRI as per teleneurology recs. Patient's care was discussed with attending physician, Dr. Delarosa. David Rdz MD PGY-3. Documentation for date of: 02/21/25 HPI History of Present Illness Chief complaint: Dizziness History of present illness: Mrs. Blanco is a 65F with history of a fib on Eliquis, HFrEF 25% (echo 01/22/25), recent CVA (acute infarct left cerebellar hemisphere, nonhemorrhagic) in January 2025 with no focal neuro deficit presents for dizziness. Pt was sent over by her PCP due to new onset numbness on left side of face and left arm which started last night. Upon chart review, pt was recently seen in January 2025 for CVA with acute nonhemorrhagic infarct to left cerebellar hemipshere. Pt denied any residual deficit from her stroke in January and stated that she is compliant with medications prescribed. Her initial reason to visit her PCP was due to concern of ongoing dizziness since her discharge from hospital in January. Pt did not follow up with her ophthalmic medical technician as instructed. Of note, pt's initial EKG was sinus quinton at rate of 55, but it was noted her HR to be at 124 during this encounter. New EKG obtained showed Sinus tachy at rate of 124. Pt was laying in semi-belcher position on her gurney in the ED when these two EKGs were captuted. Pt was admitted for stroke r/o. ED Course In the ED, WBC 7.7, Hgb 14.9, Na 142, K4.1, Cl 104, Bicarb 27.8, Anion Gap 10, BUN 13, Cr. 0.8, AST 27, ALT 30, ALP 123, Trop 0.073. TSH 1.56. Free T4 1.41. Stroke alert called. Head CT and CTA head/neck unremarkable. TeleNeuro consulted, commented NIHSS Score of 1. No MRI brain or echo indicated at this time. Aspirin 325mg x1 given. No focal neuro deficit on exam. ROS * Constitutional: NAD, a/o x 3, denies fever/chills. +dizziness with exertion * GI: Denies nausea, vomiting. * CV: Denies chest pain or palpitations. * Resp: Denies difficulty breathing, cough * : Denies dysuria, CVA tenderness, suprapubic tenderness. * Neuro: Denies syncope, no focal deficits. Past Medical History * A fib on Eliquis * HFrEF 25% (echo in January 2025) * Hypertension * CVA w/o residual deficit (January 2025) Social History * Lives at home, independent baseline. * Denies alcohol, drug, or smoking history. Surgical History * Denies Allergies * NKDA Home Meds * amiodarone 200mg BID * benazepril 20 qd * furosemide 20 qd * eliquis 2.5 bid * atorvastain 20x4 PO * metoprolol succ 25mg bid * digoxin 125 mcg qd Past Medical History Past Medical History Comments PMH COMMENT: PMH: hypertension, A-fib (on Eliquis), recent CVA (left cerebellar hemisphere and left vermis on 01/2025), and HFrEF (EF 25% on 01/2025) Allergies: NKDA Social Hx: Denies any smoking, drugs, alcohol Exam Vital Signs Temp Pulse Resp BP Pulse Ox O2 Del Method 97.8 F 62 20 131/56 H 97 Room Air 02/21/25 13:39 02/21/25 13:39 02/21/25 13:39 02/21/25 13:39 02/21/25 13:39 02/21/25 13:39 Narrative Exam General: Well appearing, well nourished, in no distress. Oriented x 3, normal mood and affect . Ambulating without difficulty. +Dizziness with exertion. Skin: Good turgor, no rash, unusual bruising or prominent lesions Head: Normocephalic, atraumatic, no visible or palpable masses, depressions, or scaring. Heart: No cardiomegaly or thrills; regular rhythm, no murmur or gallop. Tachy at time of this examination. Lungs: Clear to auscultation and percussion. No rales, wheeze, or rhonchi Abdomen: Bowel sounds normal, no tenderness, organomegaly, masses, or hernia Back: Spine normal without deformity or tenderness, no CVA tenderness Extremities: No amputations or deformities, cyanosis, edema or varicosities, peripheral pulses intact Results: Labs 02/22/25 04:21 02/22/25 04:21 Labs: Short CBC 02/21/25 Range/Units 12:14 WBC 7.7 (3.6-11.0) Thou/mm3 Hgb 14.9 (12.0-16.0) g/dL Hct 43.7 (36.0-46.0) % Plt Count 191 (140-440) Thou/mm3 BMP 02/21/25 12:14 Sodium 142 Potassium 4.1 Chloride 104 Carbon Dioxide 27.8 BUN 13 Creatinine 0.8 Glucose 194 H Calcium 9.2 Cardiac Enzymes 02/21/25 Range/Units 12:14 Troponin I 0.073 H* (0.0-0.045) ng/mL Liver Function 02/21/25 Range/Units 12:14 Total Bilirubin 0.9 (0.3-1.2) mg/dL AST 27 (0-34) U/L ALT 30 (10-49) U/L Alkaline Phosphatase 123 H (46-116) U/L Albumin 4.4 (3.4-4.8) gm/dL Urine 02/21/25 Range/Units 14:00 Urine Color Lt-Yellow (Lt Yel-Yel) Urine Clarity Clear (Clear/Hazy) Urine pH 7.5 H (5.0-7.0) Ur Specific [place] 1.045 H (1.001-1.035) Urine Protein Negative (Neg - Trace) Urine Glucose (UA) 1+ A (Negative) Quality Measures Quality Measures VTE prophylaxis Medications Home Medications and Allergies Allergies Allergy/AdvReac Type Severity Reaction Status Date / Time No Known Drug Allergies Allergy Verified 02/21/25 11:50 Visit Medications Acetaminophen (Acetaminophen 325 Mg Tablet) 325 mg PO Q6HR PRN PRN Reason: FEVER >101 Stop: 03/23/25 14:17 Heparin Sodium (Porcine) (Heparin Sod Inj 5000 Unit/Ml Vial) 5,000 unit SC Q8HR [facility] Stop: 03/07/25 21:59 Magnesium Sulfate (Magnesium Sulfate Ivpb) 4 gm in 50 mls @ 12.5 mls/hr IV X1 ONE Stop: 02/21/25 17:52 Last Admin: 02/21/25 14:07 Dose: 12.5 mls/hr Sodium Chloride (Ns) 1,000 mls @ 75 mls/hr IV .[id number] COUNT INCLUDES THE [facility] Stop: 02/22/25 03:37 Labetalol HCl (Labetalol Inj 5 Mg/Ml Vial 20 Ml) 10 mg IVP Q15M PRN PRN Reason: SBP=>180, DBP=>105 Ondansetron HCl (Ondansetron Inj 2 Mg/Ml Inj 2 Ml) 4 mg IVP Q4HR PRN PRN Reason: NAUSEA OR VOMITING Stop: 03/23/25 11:56 Assessment & Plan Plan Mrs. Blanco is a 65F with history of a fib on Eliquis, HFrEF 25% (echo 01/22/25), recent CVA (acute infarct left cerebellar hemisphere, nonhemorrhagic) in January 2025 with no focal neuro deficit admitted for stroke r/o. Cardiology consulted, pending recs #Stroke r/o Hx of CVA in January [address] showing Acute infarct left cerebellar hemisphere nonhemorrhagic Pt reported left sided numbness on face and arm. NIHSS 1. CT head and CTA Head and neck unremarkable. Dx: - No MRI brain or echo indicated at this time Tx: - Aspirin 325mg x 1 - Neuro checks Q4. - Bedside swallow eval - DVT prophylaxis - Head of Bed 30 degrees - Euglycemia and avoid hyperthermia (PRN acetamonophen) - Permissive hypertension - Neurology consult, appreciates recs #A fib rhythm controlled #Tachy-Quinton syndrome? Hx of a fib on Eliquis 2.5mg BID, rhythm controlled with digoxin 125mcg and amiodarone 200mg PO BID. 02/21: First EKG at 1221 showed sinus quinton at rate of 55. Second EKG at 1458 showed sinus tach at rate of 124. Dx: - Repeat EKG as need if new onset CP or rhythm change Tx: - cardiology consult, appreciates recs - Continue home med amiodarone 200mg PO BID - resume home meds after cardiology sees the pt - consider external pacing if pt becomes symptomatic #NSTEMI type 1 vs type 2, likely demand ischemia Initial trop 0.073, repeat trop 0.078. Dx: - EKG, trend trop, can stop after peak Tx: - cardiology consult, appreciate recs - Supplemental O2 with goal of >90% - Consider Nitro if active CP #HFrEF 25% Echo on 01/22/25 showed LVEF of 25% Tx: - Resume furosemide and benazepril after cardiology sees the pt - cardiology consult, appreciates recs - Strict I/Os - Monitor urine output - obtain daily weight #Hypertension Chronic medical condition Tx: - continue home meds metoprolol - outpt PCP followup Dispo: Tele w/ cardiac monitoring DVT prophylaxis: Lovenox GI prophylaxis: Protonix 40 Diet: Cardiac diet Lines: Peripheral IV Code status: Full code Case discussed with my senior resident Dr. Sheppard Case discussed with my attending Dr. Isaura Grayson, PGY 1 Attending Provider Attestation/Addendum I have examined the patient, reviewed labs and imaging findings, discussed the case with the resident(s), and reviewed entered orders. I agree with the plan of care as outlined in this note, with these additional summaries/recommendations: After examination of the patient and review of the clinical data, I feel that this patient needs admission to the hospital for further treatment and evaluation. Patient seen at bedside. She presented with dizziness. Stroke alert called in the emergency room. NIH SS score of 1. Teleneurology consulted. Order vascular risk factor screening with TSH, A1c, and lipid panel. CT head without contrast and CTA head and neck relatively within normal limits. Order MRI brain. Echocardiogram with bubble study and physical therapy evaluation. Patient does have a history of CVA previously. We will give loading dose of aspirin and start statin therapy. Will follow-up with neurology for additional recommendations. It is possible patient's dizziness is related to arrhythmia versus digoxin toxicity versus acute CVA. 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 Consult cardiology, recommendations appreciated. Ordered digoxin level to evaluate for digoxin toxicity. Troponin elevated most likely secondary to demand ischemia and continue to trend every 8 hours or until downtrend. Continue aspirin and statin. Appreciate cardiology recommendations. Patient has CHF although does not appear to be in exacerbation at this time. Continue home medications. Patient updated on the plan and agreement. All questions answered to satisfaction. Please see residents note for additional details of management. Dr. Isaura MD
--- NOTE | 2025-02-21 14:52 | EKG_ITS ---
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
[2025-02-21] MEDS: SODIUM CHLORIDE 0.9% 1000 ML 1,000 ML 75 ML IV (14:54)
[2025-02-21 15:23] LABS: Troponin I 0.078 ng/mL (0.0-0.045)
[2025-02-21 15:28] LABS: Digoxin 1.1 ng/mL (0.8-2.0)
[2025-02-21 17:03] LABS: Free T4 (Free Thyroxine) 1.41 ng/dL (0.89-1.76); Thyroid Stimulating Hormone 1.56 uIU/mL (0.55-4.78)
--- NOTE | 2025-02-21 17:25 | PD.RESCONSUL ---
HPI Data of Consult Requesting Physician: David Rdz MD Admitting Provider: Lew Delarosa MD Attending Provider: David Rdz MD Primary Care Provider: Physician No Primary/Family Consult Narrative History of present illness: z cc:: cc: David Rdz MD Exam Vital Signs Temp Pulse Resp BP Pulse Ox O2 Del Method 98.9 F 58 L 22 H 143/91 H 98 Room Air 02/21/25 16:57 02/21/25 17:10 02/21/25 17:10 02/21/25 16:57 02/21/25 17:10 02/21/25 16:57 Results Labs 02/21/25 12:14 02/21/25 12:14 Labs: Short CBC 02/21/25 Range/Units 12:14 WBC 7.7 (3.6-11.0) Thou/mm3 Hgb 14.9 (12.0-16.0) g/dL Hct 43.7 (36.0-46.0) % Plt Count 191 (140-440) Thou/mm3 BMP 02/21/25 12:14 Sodium 142 Potassium 4.1 Chloride 104 Carbon Dioxide 27.8 BUN 13 Creatinine 0.8 Glucose 194 H Calcium 9.2 Cardiac Enzymes 02/21/25 02/21/25 Range/Units 12:14 14:34 Troponin I 0.073 H* 0.078 H* (0.0-0.045) ng/mL Liver Function 02/21/25 Range/Units 12:14 Total Bilirubin 0.9 (0.3-1.2) mg/dL AST 27 (0-34) U/L ALT 30 (10-49) U/L Alkaline Phosphatase 123 H (46-116) U/L Albumin 4.4 (3.4-4.8) gm/dL Urine 02/21/25 Range/Units 14:00 Urine Color Lt-Yellow (Lt Yel-Yel) Urine Clarity Clear (Clear/Hazy) Urine pH 7.5 H (5.0-7.0) Ur Specific [place] 1.045 H (1.001-1.035) Urine Protein Negative (Neg - Trace) Urine Glucose (UA) 1+ A (Negative) Quality Measures Quality Measures none Medications Home Medications and Allergies Home Medications ?Medication ?Instructions ?Recorded ?Confirmed ?Type ondansetron HCl 8 mg tablet 8 mg PO QDAY PRN nausea and 01/22/25 02/21/25 History vomiting Allergies Allergy/AdvReac Type Severity Reaction Status Date / Time No Known Drug Allergies Allergy Verified 02/21/25 11:50 Visit Medications Acetaminophen (Acetaminophen 325 Mg Tablet) 325 mg PO Q6HR PRN PRN Reason: FEVER >101 Stop: 03/23/25 14:17 Heparin Sodium (Porcine) (Heparin Sod Inj 5000 Unit/Ml Vial) 5,000 unit SC Q8HR [facility] Stop: 03/07/25 21:59 Magnesium Sulfate (Magnesium Sulfate Ivpb) 4 gm in 50 mls @ 12.5 mls/hr IV X1 ONE Stop: 02/21/25 17:52 Last Admin: 02/21/25 14:07 Dose: 12.5 mls/hr Sodium Chloride (Ns) 1,000 mls @ 75 mls/hr IV .[id number] [facility] Stop: 02/22/25 03:37 Last Admin: 02/21/25 14:54 Dose: 75 mls/hr Labetalol HCl (Labetalol Inj 5 Mg/Ml Vial 20 Ml) 10 mg IVP Q15M PRN PRN Reason: SBP=>180, DBP=>105 Ondansetron HCl (Ondansetron Inj 2 Mg/Ml Inj 2 Ml) 4 mg IVP Q4HR PRN PRN Reason: NAUSEA OR VOMITING Stop: 03/23/25 11:56 Discontinued Medications Aspirin (Aspirin 325 Mg Tablet) 325 mg PO X1 ONE Stop: 02/21/25 15:47
--- NOTE | 2025-02-21 18:26 | EKG_ITS ---
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
--- NOTE | 2025-02-21 18:55 | ESCONSULT_ITS ---
<Statement entered by Leon Nj MD - 02/22/25 18:24> I personally evaluated examined this patient who was admitted the hospital with atrial fibrillation as well as has been having significant 5-second pauses whenever patient is trying to convert to sinus rhythm suggestive of prolonged sinus node recovery time patient may require pacemaker plantation. Patient was recently hospitalized with stroke and also had severe LV dysfunction ejection fraction 25% possibly tachycardia cardiomyopathy versus nonischemic cardiomyopathy. Patient may require ICD implantation if patient has pauses and requires bradycardia pacing. Will discuss this again tomorrow depending on the patient's findings for now she is quite stable though she is having symptomatic pauses. Evaluated patient with resident physician will continue to follow the patient closely. Discontinue Eliquis changed to Lovenox in case patient requires device implantation <Statement entered by Miracle Gaxiola MD - 02/21/25 21:32> In summary: 65-year-old female PMHx of A-fib on ELIQUIS, HFrEF 25%, tachybradycardia arrhythmia, recent hemorrhagic infarct of left cerebral hemisphere without residual deficit, presenting to ED with acute episode of dizziness and left-sided weakness. Admission Head CT and head/neck CTA showed no acute pathology. Initial EKG showed sinus bradycardia with HR 55. On repeat, EKG showed atrial flutter/A-fib with RVR, HR 124. Cardiology was consulted for management of tachyarrhythmia. On evaluation, tele strip was noticeable for recurrent episodic A-fib with RVR, followed by brief episodes of sinus pause lasting about 4 seconds each, then bradycardia with HR in 40 ? 50s. She appears symptomatic during this episode; describing feeling of fainting, dizziness, lightheadedness, palpitation, and mild shortness of breath. Assessment includes A-fib with RVR, intrinsic sinus node dysfunction (sinus sick syndrome) and mildly prolonged sinus pause. Although these episodes are brief and short lasting, she is symptomatic during episode likely secondary to significantly reduced ejection fraction of 25% as seen on echo from previous admission. Additionally, she has NSTEMI type 2 likely in setting of tachyarrhthmia, with peak troponin 0.164. BNP mildly elevated, but no signs or symptoms of CHF exacerbation at this time. Plan includes discontinue home DIGOXIN and follow-up with DIGOXIN level. She is maintaining adequate heart rate above 50s and will continue with METOPROLOL tartrate 25 mg BID as well as AMIODARONE 200 mg p.o. BID to prevent recurrent tachyarrhythmias. We will proceed with artificial pacing if these episodes persist. Low suspension for major/large infarct and CT head was negative for stroke. Most likely her presentation is due to arrhythmia leading to syncopal episodes (as described above). As such, no contraindication for anticoagulations. We will differ ELIQUIS and proceed with LOVENOX 1 mg/kg given high [id number], to be discontinued the day prior to pacemaker placement on . I?ve reviewed the note and agree with the resident's assessment and plan, with the exceptions outlined above. I personally went over the labs, imaging, home medications, and prior records, and examined the patient. The case was also reviewed with the attending physician. Please note: this document was transcribed using voice recognition technology; minor inaccuracies may be present. Miracle Gaxiola DO PGY II HPI Data of Consult Requesting Physician: David Rdz MD Admitting Provider: Lew Delarosa MD Attending Provider: David Rdz MD Primary Care Provider: Physician No Primary/Family Consult Narrative History of present illness: History of Present Illness: Mrs. Blanco is a 65F with history of a fib on Eliquis, HFrEF 25% (echo 01/22/25), recent CVA (acute infarct left cerebellar hemisphere, nonhemorrhagic) in January 2025. She came to the ER from her primary care doctor's office as patient had developed new onset numbness of the left side of face and body. CT of the head was negative for any acute hemorrhage on arrival liver patient was not a candidate for thrombolytic therapy due to her last known well being more than 4.5 hours before.. Patient states that these left-sided weakness symptoms are new as compared to her residual symptoms from a previous CVA. She states she has been compliant with all her prescribed medications and mentions a constant low intensity pain in her chest. The patient's troponins were slightly elevated upon admission likely related to the following arrhythmias: Upon admission the patient had sinus bradycardia per EKG. More recent EKGs since admission showed atrial flutter and A-fib RVR with a rate of 124 bpm. Upon consultation the patient had approximately 5-second periods of temporary asystole followed by correction in sinus rhythm. Past Medical History: * HFrEF (EF 25% on 01/2025)], * Tachy-chepe arrhythmia * Hypertension * A-fib (on Eliquis) * Recent CVA (left cerebellar hemisphere and left vermis on 01/2025). * Hyperlipidemia Past Surgical History: * Denies Medications: * Amiodarone * Eliquis * Atorvastatin * BenzePrO * Digoxin * Furosemide * Metoprolol Allergies: * NKDA Social History: * Lives alone and is independent at baseline * Denies smoking alcohol or drug use Hospital Course: * In the ED, WBC 7.7, Hgb 14.9, Na 142, K4.1, Cl 104, Bicarb 27.8, Anion Gap 10, BUN 13, Cr. 0.8, AST 27, ALT 30, ALP 123, Trop 0.073. TSH 1.56. Free T4 1.41. Stroke alert called. Head CT and CTA head/neck unremarkable. TeleNeuro consulted, commented NIHSS Score of 1. No MRI brain or echo indicated at this time. Aspirin 325mg x1 given. The patient was admitted to rule out a stroke with every 4 hours neurochecks. Reason for Consult: * Cardiology was consulted for possible sick sinus syndrome versus atrial fibrillation recovering to sinus rhythm versus transient asystole. cc:: cc: David Rdz MD Review of Systems Review of Systems Narrative Review of Systems: - General: Denies fevers, chills. - HEENT: Denies heasache, congestion, or sore throat. - Cardiac: Patient endorses constant low intensity dull pain in the left side of the chest. - Pulmonary: Denies shortness of breath or cough. - GI: Denies nausea, vomiting, diarrhea, constipation, melena, or hematochezia. - : Denies dysuria, hematuria, frequency, or urgency. - MSK: Patient endorses weakness on the left side of her body. - Neuro: Patient endorses episodes of dizziness associated with her transient asystole. Denies numbness, vision changes. Exam Vital Signs Temp Pulse Resp BP Pulse Ox O2 Del Method 97.6 F 57 L 20 168/82 H 97 Room Air 02/21/25 17:25 02/21/25 17:02/21/25 17:02/21/25 17:02/21/25 17:25 02/21/25 17:25 Narrative Exam General: Obese lady. Awake and in no acute distress. Conversational and non- toxic appearing. Neurologic: Alert and oriented x3. HEENT: Normocephalic, atraumatic, mucous membranes moist. Pupils reactive to light. Heart: Periods of 5 second asystole followed by recovery to sinus rhythm. Lungs: Clear to auscultation bilaterally with no wheezing or crackles. Abdomen: Obese, soft, nondistended, nontender, positive bowel sounds. No guarding or rebound tenderness. Extremities: Ataxia in the left upper extremity, weakness in the left upper extremity. Weakness in the left lower extremity. 2+ radial and dorsalis pedis pulses bilaterally. Skin: Warm. Dry. No rash or ecchymoses. Results Labs 02/22/25 04:21 02/22/25 04:21 Labs: Short CBC 02/21/25 Range/Units 12:14 WBC 7.7 (3.6-11.0) Thou/mm3 Hgb 14.9 (12.0-16.0) g/dL Hct 43.7 (36.0-46.0) % Plt Count 191 (140-440) Thou/mm3 BMP 02/21/25 12:14 Sodium 142 Potassium 4.1 Chloride 104 Carbon Dioxide 27.8 BUN 13 Creatinine 0.8 Glucose 194 H Calcium 9.2 Cardiac Enzymes 02/21/25 02/21/25 Range/Units 12:14 14:34 Troponin I 0.073 H* 0.078 H* (0.0-0.045) ng/mL Liver Function 02/21/25 Range/Units 12:14 Total Bilirubin 0.9 (0.3-1.2) mg/dL AST 27 (0-34) U/L ALT 30 (10-49) U/L Alkaline Phosphatase 123 H (46-116) U/L Albumin 4.4 (3.4-4.8) gm/dL Urine 02/21/25 Range/Units 14:00 Urine Color Lt-Yellow (Lt Yel-Yel) Urine Clarity Clear (Clear/Hazy) Urine pH 7.5 H (5.0-7.0) Ur Specific [place] 1.045 H (1.001-1.035) Urine Protein Negative (Neg - Trace) Urine Glucose (UA) 1+ A (Negative) Quality Measures Quality Measures none Medications Home Medications and Allergies Allergies Allergy/AdvReac Type Severity Reaction Status Date / Time No Known Drug Allergies Allergy Verified 02/21/25 11:50 Visit Medications Acetaminophen (Acetaminophen 325 Mg Tablet) 325 mg PO Q6HR PRN PRN Reason: FEVER >101 Stop: 03/23/25 14:17 Heparin Sodium (Porcine) (Heparin Sod Inj 5000 Unit/Ml Vial) 5,000 unit SC Q8HR ALISA Stop: 03/07/25 21:59 Sodium Chloride (Ns) 1,000 mls @ 75 mls/hr IV .[id number] ALISA Stop: 02/22/25 03:37 Last Admin: 02/21/25 14:54 Dose: 75 mls/hr Labetalol HCl (Labetalol Inj 5 Mg/Ml Vial 20 Ml) 10 mg IVP Q15M PRN PRN Reason: SBP=>180, DBP=>105 Ondansetron HCl (Ondansetron Inj 2 Mg/Ml Inj 2 Ml) 4 mg IVP Q4HR PRN PRN Reason: NAUSEA OR VOMITING Stop: 03/23/25 11:56 Discontinued Medications Aspirin (Aspirin 325 Mg Tablet) 325 mg PO X1 ONE Stop: 02/21/25 15:47 Last Admin: 02/21/25 17:52 Dose: 325 mg Magnesium Sulfate (Magnesium Sulfate Ivpb) 4 gm in 50 mls @ 12.5 mls/hr IV X1 ONE Stop: 02/21/25 17:52 Last Admin: 02/21/25 14:07 Dose: 12.5 mls/hr Assessment & Plan Plan In summary: 65-year-old female PMHx of A-fib on ELIQUIS, HFrEF 25%, tachybradycardia arrhythmia, recent hemorrhagic infarct of left cerebral hemisphere without residual deficit, presenting to ED with acute episode of dizziness and left-sided weakness. Admission Head CT and head/neck CTA showed no acute pathology. Initial EKG showed sinus bradycardia with HR 55. On repeat, EKG showed atrial flutter/A-fib with RVR, HR 124. Cardiology was consulted for management of tachyarrhythmia. On evaluation, tele strip was noticeable for recurrent episodic A-fib with RVR, followed by brief episodes of sinus pause lasting about 4 seconds each, then bradycardia with HR in 40 ? 50s. She appears symptomatic during this episode; describing feeling of fainting, dizziness, lightheadedness, palpitation, and mild shortness of breath. Assessment #A-fib with RVR #Intrinsic sinus node dysfunction (sinus sick syndrome) and mildly prolonged sinus pause. Although these episodes are brief and short lasting, she is symptomatic during episode likely secondary to significantly reduced ejection fraction of 25% as seen on echo from previous admission. Additionally, she has NSTEMI type 2 likely in setting of tachyarrhthmia, with peak troponin 0.164. BNP mildly elevated, but no signs or symptoms of CHF exacerbation at this time. Plan: includes discontinue home DIGOXIN and follow-up with DIGOXIN level. She is maintaining adequate heart rate above 50s and will continue with METOPROLOL tartrate 25 mg BID as well as AMIODARONE 200 mg p.o. BID to prevent recurrent tachyarrhythmias. We will proceed with artificial pacing if these episodes persist. Low suspension for major/large infarct and CT head was negative for stroke. Most likely her presentation is due to arrhythmia leading to syncopal episodes (as described above). As such, no contraindication for anticoagulations. We will differ ELIQUIS and proceed with LOVENOX 1 mg/kg given high [id number], to be discontinued the day prior to pacemaker placement on . #Stroke r/o #A fib rhythm controlled #NSTEMI type 1 vs type 2, likely demand ischemia #HFrEF 25% #Hypertension Plan: - Hopital problems managed per primary team. Patient was seen and discussed with my attending physician Dr. Nj and my senior resident Miracle Gaxiola DO PGY-2. Rizwan Martinez DO PGY-1.
[2025-02-21] MEDS: AMIODARONE HCL 200 MG TABLET PO (20:27)
[2025-02-21] MEDS: ENOXAPARIN SOD INJ 80 MG/0.8 ML SYRINGE SC (20:29)
[2025-02-21] MEDS: METOPROLOL TARTRATE 25 MG TABLET PO (21:05)
[2025-02-21 21:49] LABS: Troponin I 0.082 ng/mL (0.0-0.045)
[2025-02-21 22:29] LABS: Digoxin 1.1 ng/mL (0.8-2.0)
[2025-02-22] VITALS (12 sets, daily range): BP systolic 111–146; BP diastolic 56–80; PULSE 51–121; RESP 17–98; TEMP 36.1–36.4; O2SAT 96–97
--- NOTE | 2025-02-22 | XR_ITS ---
Examination: MRI brain without intravenous contrast. Date and time of exam: February 22, 2025 1418 hours Comparison January 21, 2025 INDICATIONS: History headaches dizziness, acute nonhemorrhagic infarct left cerebellar hemisphere on brain MRI January 21, 2025, acute episodes of dizziness and left-sided body weakness today Technique: Multiple axial and sagittal images of the brain obtained. Siemens high-resolution 1.5 Telma short bore scanners utilized. Sagittal sections, T1-weighted, TR 500, TE 14, are performed. Axial sections proton-density and T2-weighted have been obtained. Inversion recovery axial images, TR 9, 260, TE 111, TI 2500. Diffusion weighted images, axial sections, TR 4800, TE 128, B value 1000 Axial sections, ADC map, TR 4800, TE 128 Findings: Enlargement of the sella turcica is not present. The optic chiasm and infundibular are not remarkable. Prepontine and interpeduncular cisterns are not enlarged. There is no localized enlargement of the medulla or claudio. Fourth ventricle and cerebellar tonsils appear normal in position. No subacute area of hemorrhage density is seen. Mass in the cerebellopontine angle region is not evident. Globes symmetrical. Orbital musculature including medial lateral rectus muscles do not exhibit abnormality. Diffusion-weighted images demonstrate no acute infarct. Increased white matter signal large old infarct left cerebellar hemisphere moderate chronic microvascular white matter change Mass effect upon the ventricular system is not identified. Impression: Negative for acute hemorrhage mass effect or midline shift No acute infarct Large old infarct left cerebellar hemisphere
[2025-02-22 04:29] LABS: Basophils # (Auto) 0.0 Thou/mm3 (0.0-0.2); Basophils % (Auto) 1 % (0-2.5); Eosinophils # (Auto) 0.2 Thou/mm3 (0.0-0.5); Eosinophils % (Auto) 3 % (0-10); Hematocrit 42.0 % (36.0-46.0); Hemoglobin 14.4 g/dL (12.0-16.0); Immature Granulocytes Auto 0.02 Thou/mm3 (0.00-0.00); Lymphocytes # (Auto) 1.0 Thou/mm3 (1.0-4.8); Lymphocytes % (Auto) 14 % (10-50); Mean Corpuscular HGB Conc 34.3 g/dl (31.0-37.0); Mean Corpuscular Hemoglobin 29.6 pg (25.0-35.0); Mean Corpuscular Volume 86 fL (80-100); Monocytes # (Auto) 0.6 Thou/mm3 (0.0-0.8); Monocytes % (Auto) 9 % (0-12); Neutrophils # (Auto) 5.0 Thou/mm3 (1.8-7.7); Neutrophils % (Auto) 74 % (37-80); Nucleated Red Blood Cell # 0.00 Thou/mm3 (0.00-0.00); Nucleated Red Blood Cell % 0 /100 WBC (0); Platelet Count 175 Thou/mm3 (140-440); RDW Standard Deviation 43.4 fL (36.4-46.3); Red Blood Count 4.87 Miln/mm3 (4.00-5.20); White Blood Count 6.8 Thou/mm3 (3.6-11.0)
[2025-02-22 04:44] LABS: INR 1.1 (0.9-1.3); Partial Thromboplastin Time 30.4 Seconds (22.0-36.0); Prothrombin Time 11.5 Seconds (9.0-12.2)
[2025-02-22 04:52] LABS: Alanine Aminotransferase 29 U/L (10-49); Albumin, Serum 3.9 gm/dL (3.4-4.8); Albumin/Globulin Ratio 1.8 (1.2-2.2); Alkaline Phosphatase 93 U/L (46-116); Anion Gap 9 (7-16); Aspartate Amino Transferase 26 U/L (0-34); BUN/Creatinine Ratio 11 Ratio (12-20); Bilirubin,Total 1.1 mg/dL (0.3-1.2); Blood Urea Nitrogen 9 mg/dL (9-23); Calcium 8.6 mg/dL (8.3-10.6); Calcium (Corrected) 8.7 mg/dL (8.5-10.1); Carbon Dioxide 27.1 mMol/L (20.0-31.0); Cardiac Risk Estimate 2.8 RATIO (3.7-5.6); Chloride 108 mMol/L (98-107); Cholesterol 136 mg/dL (132-200); Creatinine (Component) 0.8 mg/dL (0.6-1.3); Estimated Creatinine Clearance 65.2 mL/min (>60); Globulin 2.2 gm/dL (2.3-3.5); Glucose 126 mg/dL (74-106); HDL Cholesterol 48 mg/dL (40-60); LDL Cholesterol,Calculated 62 mg/dL (0-130); Magnesium 2.3 mg/dL (1.6-2.6); Osmolality,Calculated 287 (275-295); Phosphorous 4.0 mg/dL (2.4-5.1); Potassium 3.9 mMol/L (3.4-5.1); Sodium 144 mMol/L (136-145); Total Protein 6.1 gm/dL (5.7-8.2); Triglycerides 130 mg/dL (30-150); eGFR > 60 See Note
[2025-02-22 05:00] LABS: Troponin I 0.076 ng/mL (0.0-0.045)
[2025-02-22] MEDS: METOPROLOL TARTRATE 25 MG TABLET PO (09:23)
[2025-02-22] MEDS: AMIODARONE HCL 200 MG TABLET PO (09:23)
[2025-02-22] MEDS: PANTOPRAZOLE 40 MG TABLET PO (09:24)
--- NOTE | 2025-02-22 09:50 | PCS.ST ---
Swallow Evaluation completed. Recommend to continue current diet.
--- NOTE | 2025-02-22 10:11 | ESPR_ITS ---
<Statement entered by Dhruv Martin MD - 02/22/25 23:05> Patient was examined and case was reviewed with team including attending physician. Note reviewed, I agree with most of its contents and agree with the patient's care as documented by Dr. Grayson Patient seen today at the bedside found awake, alert, orientedx3. No overnight events reported. Vital signs stable at this time. Patient currently in sinus rhythm and will not require pacemaker can be resumed on eliquis per Cardiology reccs, however will require clearance from Neurology as there is concern for acute stroke. MRI was ordered, will follow results. Case discussed with my attending Dr. Isaura Martin MD PGY-2 Documentation for date of: 02/22/25 Subjective Subjective Interval history: No overnight events. Evaluated at bedside. Cardiology consulted, started on metoprolol 25mg BID and amiodarone 200mg BID. Holding Lovenox for pacemaker placement on 02/23/25. Neurology consulted, concerned for increased risk of hemorrhagic transformation if starting pt on anticoag, stat MRI Brain ordered, if no acute stroke on brain MRI, ok to resume anticoag after pacemaker placement. NPO after midnight. Exam Vital Signs Temp Pulse Resp BP Pulse Ox O2 Del Method 97.6 F 83 17 121/77 96 Room Air 02/22/25 07:59 02/22/25 09:23 02/22/25 07:59 02/22/25 09:23 02/22/25 07:59 02/22/25 07:59 Narrative Exam General: Well appearing, well nourished, in no distress. Oriented x 3, normal mood and affect . Ambulating without difficulty. +Dizziness at rest Skin: Good turgor, no rash, unusual bruising or prominent lesions Head: Normocephalic, atraumatic, no visible or palpable masses, depressions, or scaring. Heart: No cardiomegaly or thrills; tachy-quinton, 3 seconds of asystole followed by recovery to sinus rhythm, no murmur or gallop. Lungs: Clear to auscultation and percussion. No rales, wheeze, or rhonchi Abdomen: Bowel sounds normal, no tenderness, organomegaly, masses, or hernia Back: Spine normal without deformity or tenderness, no CVA tenderness Extremities: No amputations or deformities, cyanosis, edema or varicosities, peripheral pulses intact Objective Labs 02/23/25 05:26 02/23/25 05:26 Labs: Laboratory Results - last 24 hr 02/21/25 02/21/25 02/21/25 12:14 14:00 14:34 WBC 7.7 RBC 5.06 Hgb 14.9 Hct 43.7 MCV 86 MCH 29.4 MCHC 34.1 RDW Std Deviation 44.7 Plt Count 191 Neut % (Auto) 65 Lymph % (Auto) 23 [place] % (Auto) 10 Eos % (Auto) 2 Baso % (Auto) 0 Neut # (Auto) 4.9 Lymph # (Auto) 1.7 [place] # (Auto) 0.7 Eos # (Auto) 0.2 Baso # (Auto) 0.0 Immature Gran # (Auto) 0.05 H Absolute Nucleated RBC 0.00 Immature Gran % 1 H Nucleated RBC % 0 PT 10.7 INR 1.0 APTT 26.4 Sodium 142 Potassium 4.1 Chloride 104 Carbon Dioxide 27.8 Anion Gap 10 BUN 13 Creatinine 0.8 Estim Creat Clear Calc 44.8 L eGFR > 60 BUN/Creatinine Ratio 16 Glucose 194 H Calculated Osmolality 288 Calcium 9.2 Corrected Calcium 9.2 Phosphorus Magnesium 1.6 Total Bilirubin 0.9 AST 27 ALT 30 Alkaline Phosphatase 123 H Troponin I 0.073 H* 0.078 H* Total Protein 7.0 Albumin 4.4 Globulin 2.6 Albumin/Globulin Ratio 1.7 Triglycerides Cholesterol LDL Cholesterol, Calc HDL Cholesterol Cholesterol/HDL Ratio TSH 1.56 Free T4 1.41 Ur Collection Type Voided Urine Color Lt-Yellow Urine Clarity Clear Urine pH 7.5 H Ur Specific [place] 1.045 H Urine Protein Negative Urine Glucose (UA) 1+ A Urine Ketones Negative Urine Blood Negative Urine Nitrite Negative Urine Bilirubin Negative Urine Urobilinogen (Auto) Negative Ur Leukocyte Esterase Negative Urine RBC 1 Urine WBC 1 Ur Squamous Epith Cells 1 Urine Bacteria None Digoxin 1.1 Urine Opiates Screen Negative Urine Fentanyl Screen Negative Ur Barbiturates Screen Negative U Amphetamin/Meth Scrn Negative U Benzodiazepines Scrn Negative U Cocaine Metab Screen Negative U Marijuana (THC) Screen Negative HCG (Qual) Negative 02/21/25 02/22/25 20:38 04:21 WBC 6.8 RBC 4.87 Hgb 14.4 Hct 42.0 MCV 86 MCH 29.6 MCHC 34.3 RDW Std Deviation 43.4 Plt Count 175 Neut % (Auto) 74 Lymph % (Auto) 14 [place] % (Auto) 9 Eos % (Auto) 3 Baso % (Auto) 1 Neut # (Auto) 5.0 Lymph # (Auto) 1.0 [place] # (Auto) 0.6 Eos # (Auto) 0.2 Baso # (Auto) 0.0 Immature Gran # (Auto) 0.02 H Absolute Nucleated RBC 0.00 Immature Gran % 0 Nucleated RBC % 0 PT 11.5 INR 1.1 APTT 30.4 Sodium 144 Potassium 3.9 Chloride 108 H Carbon Dioxide 27.1 Anion Gap 9 BUN 9 Creatinine 0.8 Estim Creat Clear Calc 65.2 eGFR > 60 BUN/Creatinine Ratio 11 L Glucose 126 H D Calculated Osmolality 287 Calcium 8.6 Corrected Calcium 8.7 Phosphorus 4.0 Magnesium 2.3 Total Bilirubin 1.1 AST 26 ALT 29 Alkaline Phosphatase 93 D Troponin I 0.082 H* 0.076 H* Total Protein 6.1 Albumin 3.9 D Globulin 2.2 L Albumin/Globulin Ratio 1.8 Triglycerides 130 Cholesterol 136 LDL Cholesterol, Calc 62 HDL Cholesterol 48 Cholesterol/HDL Ratio 2.8 L TSH Free T4 Ur Collection Type Urine Color Urine Clarity Urine pH Ur Specific [place] Urine Protein Urine Glucose (UA) Urine Ketones Urine Blood Urine Nitrite Urine Bilirubin Urine Urobilinogen (Auto) Ur Leukocyte Esterase Urine RBC Urine WBC Ur Squamous Epith Cells Urine Bacteria Digoxin 1.1 Urine Opiates Screen Urine Fentanyl Screen Ur Barbiturates Screen U Amphetamin/Meth Scrn U Benzodiazepines Scrn U Cocaine Metab Screen U Marijuana (THC) Screen HCG (Qual) Quality Measures Quality Measures VTE prophylaxis (Holding Levonox today for pacemaker placement tmr. ) Assessment & Plan Assessment Current Active Medications: Generic Name Dose Route Start Last Admin Trade Name Freq PRN Reason Stop Dose Admin Acetaminophen 325 mg 02/21/25 14:18 Acetaminophen 325 Mg Tablet PO 03/23/25 14:17 Q6HR PRN FEVER >101 Amiodarone HCl 200 mg 02/21/25 21:00 02/22/25 09:23 Amiodarone Hcl 200 Mg Tablet PO 03/23/25 20:59 200 mg BID ALISA Administration Enoxaparin Sodium 80 mg 02/21/25 21:00 02/21/25 20:29 Enoxaparin Sod Inj 80 Mg/0.8 Ml Syringe SC 03/07/25 20:59 80 mg BID ALISA Administration Labetalol HCl 10 mg 02/21/25 11:57 Labetalol Inj 5 Mg/Ml Vial 20 Ml IVP Q15M PRN SBP=>180, DBP=>105 Metoprolol Tartrate 25 mg 02/21/25 21:00 02/22/25 09:23 Metoprolol Tartrate 25 Mg Tablet PO 03/23/25 20:59 25 mg BID ALISA Administration Ondansetron HCl 4 mg 02/21/25 11:57 Ondansetron Inj 2 Mg/Ml Inj 2 Ml IVP 03/23/25 11:56 Q4HR PRN NAUSEA OR VOMITING Pantoprazole Sodium 40 mg 02/22/25 09:00 02/22/25 09:24 Pantoprazole 40 Mg Tablet PO 03/24/25 08:59 40 mg QDAY ALISA Administration Plan Mrs. Blanco is a 65F with history of a fib on Eliquis, HFrEF 25% (echo 01/22/25), recent CVA (acute infarct left cerebellar hemisphere, nonhemorrhagic) in January 2025 with no focal neuro deficit admitted for stroke r/o. Cardiology consulted, started on metoprolol 25mg BID and amiodarone 200mg BID. Holding Lovenox for pacemaker placement on 02/23/25. Neurology consulted, concerned for increased risk of hemorrhagic transformation if starting pt on anticoag, stat MRI Brain ordered, if no acute stroke on brain MRI, ok to resume anticoag after pacemaker placement. #Stroke r/o Hx of CVA in January [address] showing Acute infarct left cerebellar hemisphere nonhemorrhagic Pt reported left sided numbness on face and arm. NIHSS 1. CT head and CTA Head and neck unremarkable. Dx: - Stat MRI Brain ordered per neurology recs. Tx: - Aspirin 325mg x 1 - Neuro checks Q4. - Bedside swallow eval - DVT prophylaxis - Head of Bed 30 degrees - Euglycemia and avoid hyperthermia (PRN acetamonophen) - Permissive hypertension - Neurology consult, concerned for increased risk of hemorrhagic transformation if starting pt on anticoag, stat MRI Brain ordered, if no acute stroke on brain MRI, ok to resume anticoag after pacemaker placement. - Pending MRI Brain - Statin for goal LDL < 70, resume atorvastatin 80mg PO HS - slowly and gradually lower Blood Pressure to <130/80 over the course of one week #A fib rhythm controlled #Tachy-Quinton syndrome? Hx of a fib on Eliquis 2.5mg BID, rhythm controlled with digoxin 125mcg and amiodarone 200mg PO BID. 02/21: First EKG at 1221 showed sinus quinton at rate of 55. Second EKG at 1458 showed sinus tach at rate of 124. Dx: - Repeat EKG as need if new onset CP or rhythm change Tx: - cardiology consult - started on metoprolol 25mg BID and amiodarone 200mg BID - Holding Lovenox for pacemaker placement on 02/23/25 - consider external pacing if pt becomes symptomatic #NSTEMI type 1 vs type 2, likely demand ischemia Initial trop 0.073, repeat trop 0.078. Dx: - EKG, trend trop, can stop after peak Tx: - Supplemental O2 with goal of >90% - Consider nitro if active CP #HFrEF 25% Echo on 01/22/25 showed LVEF of 25% Trop peaked at 0.082. Tx: - Hold furosemide and benazepril until after pacemaker placement. - Strict I/Os - Monitor urine output - obtain daily weight #Hypertension Chronic medical condition Tx: - continue metoprolol 25mg BID - outpt PCP followup Dispo: Tele w/ cardiac monitoring DVT prophylaxis: HOLD Lovenox, plan for pacemaker placement tmr GI prophylaxis: Protonix 40 Diet: Cardiac diet, NPO after midnight Lines: Peripheral IV Code status: Full code Case discussed with my senior resident Dr. Rockwell Case discussed with my attending Dr. Isaura Vuh, DO PGY 1 Attending Provider Attestation/Addendum I have examined the patient, reviewed labs and imaging findings, discussed the case with the resident(s), and reviewed entered orders. I agree with the plan of care as outlined in this note, with these additional summaries/recommendations: Patient seen at bedside. No acute overnight events. She reports some improvement in dizziness. NIHSS score of 1 on admission. Teleneurology following and patient will go for urgent MRI brain today. CT head without contrast and CTA head and neck relatively within normal limits. Echocardiogram pending although patient recently had one that was negative bubble study. Patient does have a history of CVA previously. She was given loading dose of aspirin and started on therapeutic lovenox for her a-fib. We will hold these for now and patient will go for urgent MRI. Will follow-up with neurology for additional recommendations. Likely patients symptoms are more related to atrial fibrillation with sick sinus syndrome. Consult cardiology, recommendations appreciated. Digoxin level WNL and will discontinue. Troponin elevated most likely secondary to demand ischemia and continue to trend every 8 hours or until downtrend. Appreciate cardiology recommendations. Patient has CHF although does not appear to be in exacerbation at this time. Continue home medications. Patient updated on the plan and agreement. All questions answered to satisfaction. Please see residents note for additional details of management. Dr. Isaura MD
--- NOTE | 2025-02-22 10:23 | PC.SS ---
Patient Xuan Blanco is a 65 Year old female admitted for CVA. Patient appeared alert and oriented. SS met with patient to discuss discharge plan. Patient confirmed her address and phone number. Patient reported that she resides with her grandchildren. Patient is independent with all ALDs and reports she utilizes a cane and FWW. Choice of pharmacy is [facility]. Patient assigned her sister, Love Wilson, as her medical decision maker. Patient does not have a PCP yet. When medically clear, patient will return home; Love will provide transportation. Discharge plan: return home; Love to provide transportation. Next of kin: Love Burgos.
--- NOTE | 2025-02-22 12:05 | ESPR_ITS ---
Tele Neuro Progress Note Progress Note Date 02/22/25 [facility] TeleNeurology Progress Note Date of Service 02/22/2025 Presentation: Based on previous neurology note(s) : 65-year-old lady past medical history significant for left cerebellar stroke with residual left-sided weakness presents for evaluation of dizziness and left-sided numbness. initial NIHSS 1 on eliquis prior to admission. Interval history: CTA head and neck unremarkable 02/22/2025: nursing does not report any significant new events overnight. Impression: Ischemic stroke 01/21/25 left cerebellar with residual left-sided weakness Acute dizziness and worsening of left-sided numbness Recommendations: (Primary Team to order Controlled Medications) Unless specifically noted I Agree with Impression and Plan from previous Neurology note/consult. 1- brain MRI was not ordered and since patient is put on full dose anticoagulation I ordered brain MRI as urgent so by today we have information whether we are dealing with new (acute) ischemic stroke (which in that case should avoid full anticoagulation due to increased risk of Hemorrhagic Transformation; if anticoagulation is held then should start aspirin 81mg daily), but if this Post-stroke Recrudescence (no acute stroke on brain MRI) then it is ok to continue full anticoagulation. 2- statin for goal LDL<70 3- should slowly and gradually lower Blood Pressure to <130/80 over the course of one week (if no cardiovascular contraindication or any critical/severe intra or extracranial arterial stenosis, and if it does not elicit or exacerbate symptoms). avoid hypotension or rapid decrease in Blood Pressure. [facility] Neurologist will follow up with results. Please contact [facility] Navigator to reach me if further questions/concerns arise. Examination: Examination done through interactive audio and video telecommunications with the assist of bedside nursing (when available) Turkmen speaking awake, alert, Oriented x3 speech no aphasia Extraocular movements intact face symmetric arms no drift (10s) coordination intact in finger to nose decreased light touch on the left Patient / Family was informed the Neurology Consult would occur via TeleHealth consult by way of interactive audio and video telecommunications and consented to receiving care in this manner. Patient is being evaluated for possible acute neurologic impairment and high probability of imminent or life - threatening deterioration. I spent total of 15 minutes providing care to this patient, including time for face to face visit via telemedicine, review of medical records, imaging studies and discussion of findings with providers, the patient and / or family. Dr Afshin Hanna [facility] For Inpatient follow-up with [facility] physician please call [facility] . This is not an outpatient service. Post hospital discharge, please contact hospital directly. Please do not communicate with [facility] physicians via secure chat. If you have any questions, Please contact [facility] Please call or reconsult our service if there are any clinical or diagnostic changes. Most Recent Vital Signs Last Vital Signs Temp 97.6 F 02/22/25 07:59 Pulse 83 02/22/25 09:23 Resp 17 02/22/25 07:59 BP 121/77 02/22/25 09:23 Pulse Ox 96 02/22/25 07:59 O2 Del Method Room Air 02/22/25 07:59 Laboratory-Coagulation Panel PT 11.5 Seconds (9.0-12.2) 02/22/25 04:21 INR 1.1 (0.9-1.3) 02/22/25 04:21 APTT 30.4 Seconds (22.0-36.0) 02/22/25 04:21
--- NOTE | 2025-02-22 15:39 | PC.SS ---
Addendum entered by Karen Singer 02/22/25 15:42: SS follow up note; SS was notified by Rosa in PT that patient was needing outpatient PT. SS sent PT order to [facility] outpatient PT. Original Note: SS follow up note; Patient will get a pace maker tomorrow, discharge within 1-2 days.
[2025-02-22] MEDS: ATORVASTATIN CALCIUM 20 MG TABLET 80 MG PO (20:30)
[2025-02-22] MEDS: APIXABAN 2.5 MG TABLET 5 MG PO (20:30)
--- NOTE | 2025-02-22 21:20 | ESPR_ITS ---
<Statement entered by Leon Nj MD - 02/25/25 08:27> The patient personally examined by me patient is back in normal sinus rhythm today evaluate the patient appears to be doing much better today if she has no further episodes of bradycardia or symptomatic bradycardia or pauses can be discharged home tomorrow but if she does have significant pauses may require pacemaker plantation because of symptomatic bradycardia whenever she converts from A-fib flutter to normal sinus rhythm. Evaluated patient with resident physician PGY 1 and 2 agree with the treatment plan recommendation as documented <Statement entered by Miracle Gaxiola MD - 02/23/25 12:20> In summary: 65-year-old female PMHx of A-fib on ELIQUIS, HFrEF 25%, tachybradycardia arrhythmia, recent hemorrhagic infarct of left cerebral hemisphere without residual deficit, presenting to ED with acute episode of dizziness and left-sided weakness. Admission Head CT and head/neck CTA showed no acute pathology. Initial EKG showed sinus bradycardia with HR 55. On repeat, EKG showed atrial flutter/A-fib with RVR, HR 124. Cardiology was consulted for management of tachyarrhythmia. Overall doing fairly well. Tele showing sinus rhythm with recurrent PVCs, HR controlled. DIGOXIN level came back normal. Will continue with AMIODARONE and METOPROLOL as previously. Denies new or worsening symptoms, but reports improving in dizziness and lightheadedness. No indication for urgent pacemaker given that her heart rate is controlled without significant bradycardia. Will start with ELIQUIS 5 mg BID. Will follow-up in office, consider outpatient pacemaker if indicated. I?ve reviewed the note and agree with the resident's assessment and plan, with the exceptions outlined above. I personally went over the labs, imaging, home medications, and prior records, and examined the patient. The case was also reviewed with the attending physician. Please note: this document was transcribed using voice recognition technology; minor inaccuracies may be present. Miracle Gaxiola DO PGY II Documentation for date of: 02/22/25 Subjective Subjective Interval history: Patient continues to be bradycardic with prolonged sinus node recovery times. Decision was made to not insert a pacemaker, will continue Eliquis. MRI showed previous sellar Fran infarction but was negative for acute hemorrhage. Patient slightly hypertensive with a pressure of 146/78. Exam Vital Signs Temp Pulse Resp BP Pulse Ox O2 Del Method 97.1 F 56 L 23 H 146/78 H 96 Room Air 02/22/25 20:00 02/22/25 20:31 02/22/25 20:00 02/22/25 20:31 02/22/25 20:00 02/22/25 20:00 Narrative Exam General: Obese lady. Awake and in no acute distress. Conversational and non- toxic appearing. Neurologic: Alert and oriented x3. HEENT: Normocephalic, atraumatic, mucous membranes moist. Pupils reactive to light. Heart: Periods of 5 second asystole followed by recovery to sinus rhythm. Lungs: Clear to auscultation bilaterally with no wheezing or crackles. Abdomen: Obese, soft, nondistended, nontender, positive bowel sounds. No guarding or rebound tenderness. Extremities: Ataxia in the left upper extremity, weakness in the left upper extremity. Weakness in the left lower extremity. 2+ radial and dorsalis pedis pulses bilaterally. Skin: Warm. Dry. No rash or ecchymoses. Objective Labs 02/23/25 05:26 02/23/25 05:26 Labs: Laboratory Results - last 24 hr 02/21/25 02/22/25 20:38 04:21 WBC 6.8 RBC 4.87 Hgb 14.4 Hct 42.0 MCV 86 MCH 29.6 MCHC 34.3 RDW Std Deviation 43.4 Plt Count 175 Neut % (Auto) 74 Lymph % (Auto) 14 [place] % (Auto) 9 Eos % (Auto) 3 Baso % (Auto) 1 Neut # (Auto) 5.0 Lymph # (Auto) 1.0 [place] # (Auto) 0.6 Eos # (Auto) 0.2 Baso # (Auto) 0.0 Immature Gran # (Auto) 0.02 H Absolute Nucleated RBC 0.00 Immature Gran % 0 Nucleated RBC % 0 PT 11.5 INR 1.1 APTT 30.4 Sodium 144 Potassium 3.9 Chloride 108 H Carbon Dioxide 27.1 Anion Gap 9 BUN 9 Creatinine 0.8 Estim Creat Clear Calc 65.2 eGFR > 60 BUN/Creatinine Ratio 11 L Glucose 126 H D Calculated Osmolality 287 Calcium 8.6 Corrected Calcium 8.7 Phosphorus 4.0 Magnesium 2.3 Total Bilirubin 1.1 AST 26 ALT 29 Alkaline Phosphatase 93 D Troponin I 0.082 H* 0.076 H* Total Protein 6.1 Albumin 3.9 D Globulin 2.2 L Albumin/Globulin Ratio 1.8 Triglycerides 130 Cholesterol 136 LDL Cholesterol, Calc 62 HDL Cholesterol 48 Cholesterol/HDL Ratio 2.8 L Digoxin 1.1 Quality Measures Quality Measures VTE prophylaxis (Holding Levonox today for pacemaker placement tmr. ) Assessment & Plan Assessment Current Active Medications: Generic Name Dose Route Start Last Admin Trade Name Freq PRN Reason Stop Dose Admin Acetaminophen 325 mg 02/21/25 14:18 Acetaminophen 325 Mg Tablet PO 03/23/25 14:17 Q6HR PRN FEVER >101 Amiodarone HCl 200 mg 02/21/25 21:00 02/22/25 20:31 Amiodarone Hcl 200 Mg Tablet PO 03/23/25 20:59 Not Given BID ALISA Apixaban 5 mg 02/22/25 21:00 02/22/25 20:30 Apixaban 2.5 Mg Tablet PO 03/24/25 20:59 5 mg BID ALISA Administration Atorvastatin Calcium 80 mg 02/22/25 21:00 02/22/25 20:30 Atorvastatin Calcium 20 Mg Tablet PO 03/24/25 20:59 80 mg HS ALISA Administration Labetalol HCl 10 mg 02/21/25 11:57 Labetalol Inj 5 Mg/Ml Vial 20 Ml IVP Q15M PRN SBP=>180, DBP=>105 Metoprolol Tartrate 25 mg 02/21/25 21:00 02/22/25 20:31 Metoprolol Tartrate 25 Mg Tablet PO 03/23/25 20:59 Not Given BID ALISA Ondansetron HCl 4 mg 02/21/25 11:57 Ondansetron Inj 2 Mg/Ml Inj 2 Ml IVP 03/23/25 11:56 Q4HR PRN NAUSEA OR VOMITING Pantoprazole Sodium 40 mg 02/22/25 09:00 02/22/25 09:24 Pantoprazole 40 Mg Tablet PO 03/24/25 08:59 40 mg QDAY ALISA Administration Sennosides 1 tab 02/22/25 14:44 Senna/Docusate Sod 1 Tab Tablet PO 03/24/25 14:43 QDAY PRN CONSTIPATION Protocol Plan In summary: 65-year-old female PMHx of A-fib on ELIQUIS, HFrEF 25%, tachybradycardia arrhythmia, recent hemorrhagic infarct of left cerebral hemisphere without residual deficit, presenting to ED with acute episode of dizziness and left-sided weakness. Admission Head CT and head/neck CTA showed no acute pathology. Initial EKG showed sinus bradycardia with HR 55. On repeat, EKG showed atrial flutter/A-fib with RVR, HR 124. Cardiology was consulted for management of tachyarrhythmia. On evaluation, tele strip was noticeable for recurrent episodic A-fib with RVR, followed by brief episodes of sinus pause lasting about 4 seconds each, then bradycardia with HR in 40 ? 50s. She appears symptomatic during this episode; describing feeling of fainting, dizziness, lightheadedness, palpitation, and mild shortness of breath. Assessment #A-fib with RVR #Intrinsic sinus node dysfunction (sinus sick syndrome) and mildly prolonged sinus pause. - Although these episodes are brief and short lasting, she is symptomatic during episode likely secondary to significantly reduced ejection fraction of 25% as seen on echo from previous admission. Additionally, she has NSTEMI type 2 likely in setting of tachyarrhthmia, with peak troponin 0.164. BNP mildly elevated, but no signs or symptoms of CHF exacerbation at this time. - Low suspension for major/large infarct and CT head was negative for stroke. Most likely her presentation is due to arrhythmia leading to syncopal episodes (as described above). As such, no contraindication for anticoagulations. - Review of the patient's rhythm strip on 02/22/2025 showed possible bigeminy in addition to sick sinus syndrome - The patient continues to be in sick sinus syndrome with a prolonged sinus node recovery time, however the recovery time is not long enough to warrant pacemaker implantation as her recovery time is roughly 5 seconds - If recovery time was 7 seconds or more, then a stronger case could be made for pacemaker implantation - In addition, the patient is able to maintain her baseline ejection fraction even with a 5 seconds recovery time. Plan: - Continue metoprolol 25 mg twice daily - Continue amiodarone 200 mg twice daily - Continue Eliquis 5 mg twice daily - DC Lovenox - Follow-up echo and pacemaker consideration if sinus rhythm recovery time is longer than 5 to 7 seconds. #Stroke r/o #A fib rhythm controlled #NSTEMI type 1 vs type 2, likely demand ischemia #HFrEF 25% #Hypertension Plan: - Hopital problems managed per primary team. Patient was seen and discussed with my attending physician Dr. Nj and my senior resident Miracle Gaxiola DO PGY-2. Rizwan Martinez DO PGY-1.
[2025-02-23] VITALS (15 sets, daily range): BP systolic 116–169; BP diastolic 56–89; PULSE 48–126; RESP 15–97; TEMP 36–36.4; O2SAT 94–97
--- NOTE | 2025-02-23 00:45 | EKG_ITS ---
[facility] Test Date: 2025-02-23 Pat Name: EVY KC [facility] Gender: Female Head Holder: JENNIFER : 1960 Requested By: Brian Faust Order Number: [id number] Reading MD: Brian Faust Measurements Intervals [place] Rate: 120 P: [place]: QRS: 24 QRSD: 88 T: 65 QT: 212 QTc: 301 Interpretive Statements ATRIAL FLUTTER/TACHYCARDIA WITH RAPID VENTRICULAR RESPONSE POSSIBLE RIGHT VENTRICULAR CONDUCTION DELAY NONSPECIFIC ST & T-WAVE ABNORMALITY ABNORMAL RHYTHM ECG Compared to ECG 02/21/2025 18:31:54 T-wave abnormality now present Atrial fibrillation no longer present Incomplete right bundle-branch block no longer present ST (T wave) deviation no longer present /store/S0/[id number].pdf
[2025-02-23] MEDS: METOPROLOL TARTRATE 25 MG TABLET PO ×2 (00:59→09:09)
[2025-02-23] MEDS: AMIODARONE HCL 200 MG TABLET PO ×3 (01:00→21:02)
[2025-02-23 06:25] LABS: Basophils # (Auto) 0.0 Thou/mm3 (0.0-0.2); Basophils % (Auto) 1 % (0-2.5); Eosinophils # (Auto) 0.2 Thou/mm3 (0.0-0.5); Eosinophils % (Auto) 3 % (0-10); Hematocrit 42.2 % (36.0-46.0); Hemoglobin 14.3 g/dL (12.0-16.0); Immature Granulocytes Auto 0.03 Thou/mm3 (0.00-0.00); Lymphocytes # (Auto) 1.5 Thou/mm3 (1.0-4.8); Lymphocytes % (Auto) 22 % (10-50); Mean Corpuscular HGB Conc 33.9 g/dl (31.0-37.0); Mean Corpuscular Hemoglobin 29.4 pg (25.0-35.0); Mean Corpuscular Volume 87 fL (80-100); Monocytes # (Auto) 0.6 Thou/mm3 (0.0-0.8); Monocytes % (Auto) 9 % (0-12); Neutrophils # (Auto) 4.5 Thou/mm3 (1.8-7.7); Neutrophils % (Auto) 65 % (37-80); Nucleated Red Blood Cell # 0.00 Thou/mm3 (0.00-0.00); Nucleated Red Blood Cell % 0 /100 WBC (0); Platelet Count 158 Thou/mm3 (140-440); RDW Standard Deviation 45.1 fL (36.4-46.3); Red Blood Count 4.87 Miln/mm3 (4.00-5.20); White Blood Count 6.9 Thou/mm3 (3.6-11.0)
[2025-02-23 06:52] LABS: Alanine Aminotransferase 28 U/L (10-49); Albumin, Serum 3.8 gm/dL (3.4-4.8); Albumin/Globulin Ratio 1.6 (1.2-2.2); Alkaline Phosphatase 86 U/L (46-116); Anion Gap 10 (7-16); Aspartate Amino Transferase 26 U/L (0-34); BUN/Creatinine Ratio 16 Ratio (12-20); Bilirubin,Total 1.1 mg/dL (0.3-1.2); Blood Urea Nitrogen 11 mg/dL (9-23); Calcium 8.7 mg/dL (8.3-10.6); Calcium (Corrected) 8.9 mg/dL (8.5-10.1); Carbon Dioxide 25.7 mMol/L (20.0-31.0); Chloride 106 mMol/L (98-107); Creatinine (Component) 0.7 mg/dL (0.6-1.3); Estimated Creatinine Clearance 75.8 mL/min (>60); Globulin 2.4 gm/dL (2.3-3.5); Glucose 123 mg/dL (74-106); Magnesium 1.7 mg/dL (1.6-2.6); Osmolality,Calculated 283 (275-295); Phosphorous 3.7 mg/dL (2.4-5.1); Potassium 4.1 mMol/L (3.4-5.1); Sodium 142 mMol/L (136-145); Total Protein 6.2 gm/dL (5.7-8.2); eGFR > 60 See Note
[2025-02-23] MEDS: Magnesium Sulfate 4 GM Ivpb 4 GM/50 ML BAG IV (09:07)
[2025-02-23] MEDS: APIXABAN 2.5 MG TABLET 5 MG PO (09:07)
[2025-02-23] MEDS: PANTOPRAZOLE 40 MG TABLET PO (09:08)
--- NOTE | 2025-02-23 11:31 | ESPR_ITS ---
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 initial NIHSS 1 on eliquis prior to admission. Interval history: CTA head and neck unremarkable 02/22/2025: nursing does not report any significant new events overnight. 02/23: no events overnight Impression: Ischemic stroke 01/21/25 left cerebellar with residual left-sided weakness Acute dizziness and worsening of left-sided numbness (Post-stroke Recrudescence) Recommendations: (Primary Team to order Controlled Medications) Unless specifically noted I Agree with Impression and Plan from previous Neurology note/consult. 1- Brain MRI did not show any acute ischemic stroke, ok to continue full anticoagulation., from neurology perspective no need to add Antiplatelets to Anticoagulation. 2- statin for goal LDL<70 3- should slowly and gradually lower Blood Pressure to <130/80 over the course of 1-2 days. avoid hypotension or rapid decrease in Blood Pressure. 4- if continues to be dizzy can ask PT to evaluate for peripheral causes, also check orthostatic vital signs. Neurology will sign off. Follow up with outpatient neurology in 2-3 weeks. Please contact [facility] Navigator to reach me if further questions/concerns arise. Examination: Examination done through interactive audio and video telecommunications with the assist of bedside nursing (when available) Yak[place] speaking awake, alert speech no aphasia Extraocular movements intact face symmetric arms no drift (10s) coordination intact in finger to nose Patient / Family was informed the Neurology Consult would occur via TeleHealth consult by way of interactive audio and video telecommunications and consented to receiving care in this manner. Patient is being evaluated for possible acute neurologic impairment and high probability of imminent or life - threatening deterioration. I spent total of 15 minutes providing care to this patient, including time for face to face visit via telemedicine, review of medical records, imaging studies and discussion of findings with providers, the patient and / or family. Dr Afshin Hanna [facility] For Inpatient follow-up with [facility] physician please call [facility] . This is not an outpatient service. Post hospital discharge, please contact hospital directly. Please do not communicate with [facility] physicians via secure chat. If you have any questions, Please contact [facility]. Please call or reconsult our service if there are any clinical or diagnostic changes. Most Recent Vital Signs Last Vital Signs Temp 97.0 F 02/23/25 08:00 Pulse 60 02/23/25 09:09 Resp 19 02/23/25 08:00 BP 118/56 L 02/23/25 09:09 Pulse Ox 97 02/23/25 08:00 O2 Del Method Room Air 02/23/25 08:00 Laboratory-Coagulation Panel PT 11.5 Seconds (9.0-12.2) 02/22/25 04:21 INR 1.1 (0.9-1.3) 02/22/25 04:21 APTT 30.4 Seconds (22.0-36.0) 02/22/25 04:21
--- NOTE | 2025-02-23 16:11 | ESPR_ITS ---
<Statement entered by Dhruv Martin MD - 02/23/25 20:11> Patient was examined and case was reviewed with team including attending physician. Note reviewed, I agree with most of its contents and agree with the patient's care as documented by Dr. Thakkar Patient seen today at the bedside found awake, alert, orientedx3. Patient continues to express dizziness and chest pain. Patient has delayed pauses in setting of sick sinus syndrome reached out to Cardiology team resident in regards to pacemaker placement. Case discussed with my attending Dr. Isaura Martin MD PGY-2 Documentation for date of: 02/23/25 Subjective Subjective Interval history: No overnight events. Evaluated at bedside. Pt continue to complain of dizziness and chest pain with exertion. No pacemaker placement. Cardiology recommends follow-up with echo and pacemaker consideration if sinus rhythm recovery time is longer than 5 to 7 seconds. Exam Vital Signs Temp Pulse Resp BP Pulse Ox O2 Del Method 97.2 F 72 17 116/57 L 94 L Room Air 02/23/25 12:00 02/23/25 12:02/23/25 12:02/23/25 12:02/23/25 12:02/23/25 12:00 Narrative Exam General: Well appearing, well nourished, in no distress. Oriented x 3, normal mood and affect . Ambulating without difficulty. +Dizziness with exertion Skin: Good turgor, no rash, unusual bruising or prominent lesions Head: Normocephalic, atraumatic, no visible or palpable masses, depressions, or scaring. Heart: No cardiomegaly or thrills; tachy-chepe, 3 seconds of asystole followed by recovery to sinus rhythm, no murmur or gallop. Lungs: Clear to auscultation and percussion. No rales, wheeze, or rhonchi. Abdomen: Bowel sounds normal, no tenderness, organomegaly, masses, or hernia Back: Spine normal without deformity or tenderness, no CVA tenderness Extremities: No amputations or deformities, cyanosis, edema or varicosities, peripheral pulses intact Objective Labs 02/24/25 04:30 02/24/25 04:30 Labs: Laboratory Results - last 24 hr 02/23/25 05:26 WBC 6.9 RBC 4.87 Hgb 14.3 Hct 42.2 MCV 87 MCH 29.4 MCHC 33.9 RDW Std Deviation 45.1 Plt Count 158 Neut % (Auto) 65 Lymph % (Auto) 22 [place] % (Auto) 9 Eos % (Auto) 3 Baso % (Auto) 1 Neut # (Auto) 4.5 Lymph # (Auto) 1.5 [place] # (Auto) 0.6 Eos # (Auto) 0.2 Baso # (Auto) 0.0 Immature Gran # (Auto) 0.03 H Absolute Nucleated RBC 0.00 Immature Gran % 0 Nucleated RBC % 0 Sodium 142 Potassium 4.1 Chloride 106 Carbon Dioxide 25.7 Anion Gap 10 BUN 11 Creatinine 0.7 Estim Creat Clear Calc 75.8 eGFR > 60 BUN/Creatinine Ratio 16 Glucose 123 H Calculated Osmolality 283 Calcium 8.7 Corrected Calcium 8.9 Phosphorus 3.7 Magnesium 1.7 Total Bilirubin 1.1 AST 26 ALT 28 Alkaline Phosphatase 86 Total Protein 6.2 Albumin 3.8 Globulin 2.4 Albumin/Globulin Ratio 1.6 Quality Measures Quality Measures VTE prophylaxis Assessment & Plan Assessment Current Active Medications: Generic Name Dose Route Start Last Admin Trade Name Freq PRN Reason Stop Dose Admin Acetaminophen 325 mg 02/21/25 14:18 Acetaminophen 325 Mg Tablet PO 03/23/25 14:17 Q6HR PRN FEVER >101 Amiodarone HCl 200 mg 02/21/25 21:00 02/23/25 09:08 Amiodarone Hcl 200 Mg Tablet PO 03/23/25 20:59 200 mg BID ALISA Administration Apixaban 5 mg 02/22/25 21:00 02/23/25 09:07 Apixaban 2.5 Mg Tablet PO 03/24/25 20:59 5 mg BID ALISA Administration Atorvastatin Calcium 80 mg 02/22/25 21:00 02/22/25 20:30 Atorvastatin Calcium 20 Mg Tablet PO 03/24/25 20:59 80 mg HS ALISA Administration Labetalol HCl 10 mg 02/21/25 11:57 Labetalol Inj 5 Mg/Ml Vial 20 Ml IVP Q15M PRN SBP=>180, DBP=>105 Metoprolol Tartrate 25 mg 02/21/25 21:00 02/23/25 09:09 Metoprolol Tartrate 25 Mg Tablet PO 03/23/25 20:59 25 mg BID ALISA Administration Ondansetron HCl 4 mg 02/21/25 11:57 Ondansetron Inj 2 Mg/Ml Inj 2 Ml IVP 03/23/25 11:56 Q4HR PRN NAUSEA OR VOMITING Pantoprazole Sodium 40 mg 02/22/25 09:00 02/23/25 09:08 Pantoprazole 40 Mg Tablet PO 03/24/25 08:59 40 mg QDAY ALISA Administration Sennosides 1 tab 02/22/25 14:44 Senna/Docusate Sod 1 Tab Tablet PO 03/24/25 14:43 QDAY PRN CONSTIPATION Protocol Plan Mrs. Blanco is a 65F with history of a fib on Eliquis, HFrEF 25% (echo 01/22/25), recent CVA (acute infarct left cerebellar hemisphere, nonhemorrhagic) in January 2025 with no focal neuro deficit admitted for stroke r/o. Cardiology consulted, continue on metoprolol 25mg BID, amiodarone 200mg BID, and Eliquis 5mg PO BID. #Stroke r/o Hx of CVA in January [address] showing Acute infarct left cerebellar hemisphere nonhemorrhagic Pt reported left sided numbness on face and arm. NIHSS 1. CT head and CTA Head and neck unremarkable. Dx: - Stat MRI Brain ordered per neurology recs 02/22. It showed no acute infarct, large old infarct left cerebellar hemisphere. Tx: - Aspirin 325mg x 1 - Neuro checks Q4. - Bedside swallow eval - DVT prophylaxis - Head of Bed 30 degrees - Euglycemia and avoid hyperthermia (PRN acetamonophen) - Permissive hypertension - Neurology consult, concerned for increased risk of hemorrhagic transformation if starting pt on anticoag, stat MRI Brain ordered on 02/22. - Brain MRI did not show any acute ischemic stroke, ok to continue full anticoagulation., from neurology perspective no need to add Antiplatelets to Anticoagulation. - Statin for goal LDL < 70, resume atorvastatin 80mg PO HS - slowly and gradually lower Blood Pressure to <130/80 over the course of one week - Neurology signed off. Follow up with outpatient neurology in 2-3weeks. #A fib rhythm controlled #Sick Sinus Syndrome Hx of a fib on Eliquis 2.5mg BID, rhythm controlled with metoprolol 25mg BID amiodarone 200mg PO BID. 02/21: First EKG at 1221 showed sinus chepe at rate of 55. Second EKG at 1458 showed sinus tach at rate of 124. Dx: - Repeat EKG as need if new onset CP or rhythm change Tx: - cardiology consulted - continue on metoprolol 25mg BID, amiodarone 200mg BID, and Eliquis 5mg BID - D/C Lovenox - Follow-up echo and pacemaker consideration if sinus rhythm recovery time is longer than 5 to 7 seconds #NSTEMI type 1 vs type 2, likely demand ischemia Initial trop 0.073, repeat trop 0.078. Dx: - EKG, trend trop, can stop after peak Tx: - Supplemental O2 with goal of >90% - Consider nitro if active CP #HFrEF 25% Echo on 01/22/25 showed LVEF of 25% Trop peaked at 0.082. Tx: - Hold furosemide and benazepril, resume if BP tolerates - Strict I/Os - Monitor urine output - obtain daily weight #Hypertension Chronic medical condition Tx: - continue metoprolol 25mg BID - outpt PCP followup Dispo: Tele w/ cardiac monitoring DVT prophylaxis: SCDs GI prophylaxis: Protonix 40 Diet: Cardiac diet Lines: Peripheral IV Code status: Full code Case discussed with my senior resident Dr. Rockwell Case discussed with my attending Dr. Isaura Grayson, PGY 1 Attending Provider Attestation/Addendum I have examined the patient, reviewed labs and imaging findings, discussed the case with the resident(s), and reviewed entered orders. I agree with the plan of care as outlined in this note, with these additional summaries/recommendations: Patient seen at bedside. No acute overnight events. Patient completed MRI brain which was negative for acute hemorrhage, mass effect, midline shift, or acute infract. It did reveal large old infract left cerebral hemisphere. Patient continues to endorse dizziness and is intermittently bradycardic and tachycardic. Patient's dizziness most likely secondary to arrhythmia as CVA ruled out. Patient did receive metoprolol this morning but we will hold as she is bradycardic and dizzy. Cardiology following, recommendations appreciated. Patient and family updated on the plan. All questions answered to satisfaction. Please see residents note for additional details of management. Dr. Isaura MD
--- NOTE | 2025-02-23 19:57 | ESPR_ITS ---
<Statement entered by Leon Nj MD - 02/25/25 08:34> I personally evaluated examined this patient telemetry she was doing well except she had clear episodes of near syncope 5-second pauses [id number] of 1 QRS complex especially when she is trying to convert from atrial flutter atrial fibrillation and to Sinus rhythm. Meets class I indication placement [place] however patient received Eliquis today will have to wait till Thursday morning 9 to do pacemaker implantation. Documentation for date of: 02/23/25 Subjective Subjective Interval history: The patient continues to have atrial flutter with severely delayed conversion into sinus rhythm. Ultrasound was performed by the cardiac team and showed a normal ejection fraction. Patient is hypertensive today with a blood pressure 169/58 and continues to be bradycardic due to delayed conversion into sinus rhythm lasting longer than 6 seconds. Will consider pacemaker placement. Exam Vital Signs Temp Pulse Resp BP Pulse Ox O2 Del Method 97.6 F 48 L 19 169/58 H 96 Room Air 02/23/25 16:00 02/23/25 16:02/23/25 16:00 02/23/25 16:00 02/23/25 16:02/23/25 16:00 Narrative Exam General: Obese lady. Awake and in no acute distress. Conversational and non- toxic appearing. Neurologic: Alert and oriented x3. HEENT: Normocephalic, atraumatic, mucous membranes moist. Pupils reactive to light. Heart: Periods of 5 second asystole followed by recovery to sinus rhythm. Lungs: Clear to auscultation bilaterally with no wheezing or crackles. Abdomen: Obese, soft, nondistended, nontender, positive bowel sounds. No guarding or rebound tenderness. Extremities: Ataxia in the left upper extremity, weakness in the left upper extremity. Weakness in the left lower extremity. 2+ radial and dorsalis pedis pulses bilaterally. Skin: Warm. Dry. No rash or ecchymoses. Objective Labs 02/23/25 05:26 02/23/25 05:26 Labs: Laboratory Results - last 24 hr 02/23/25 05:26 WBC 6.9 RBC 4.87 Hgb 14.3 Hct 42.2 MCV 87 MCH 29.4 MCHC 33.9 RDW Std Deviation 45.1 Plt Count 158 Neut % (Auto) 65 Lymph % (Auto) 22 [place] % (Auto) 9 Eos % (Auto) 3 Baso % (Auto) 1 Neut # (Auto) 4.5 Lymph # (Auto) 1.5 [place] # (Auto) 0.6 Eos # (Auto) 0.2 Baso # (Auto) 0.0 Immature Gran # (Auto) 0.03 H Absolute Nucleated RBC 0.00 Immature Gran % 0 Nucleated RBC % 0 Sodium 142 Potassium 4.1 Chloride 106 Carbon Dioxide 25.7 Anion Gap 10 BUN 11 Creatinine 0.7 Estim Creat Clear Calc 75.8 eGFR > 60 BUN/Creatinine Ratio 16 Glucose 123 H Calculated Osmolality 283 Calcium 8.7 Corrected Calcium 8.9 Phosphorus 3.7 Magnesium 1.7 Total Bilirubin 1.1 AST 26 ALT 28 Alkaline Phosphatase 86 Total Protein 6.2 Albumin 3.8 Globulin 2.4 Albumin/Globulin Ratio 1.6 Quality Measures Quality Measures VTE prophylaxis Assessment & Plan Assessment Current Active Medications: Generic Name Dose Route Start Last Admin Trade Name Freq PRN Reason Stop Dose Admin Acetaminophen 325 mg 02/21/25 14:18 Acetaminophen 325 Mg Tablet PO 03/23/25 14:17 Q6HR PRN FEVER >101 Amiodarone HCl 200 mg 02/21/25 21:00 02/23/25 09:08 Amiodarone Hcl 200 Mg Tablet PO 03/23/25 20:59 200 mg BID ALISA Administration Atorvastatin Calcium 80 mg 02/22/25 21:00 02/22/25 20:30 Atorvastatin Calcium 20 Mg Tablet PO 03/24/25 20:59 80 mg HS ALISA Administration Labetalol HCl 10 mg 02/21/25 11:57 Labetalol Inj 5 Mg/Ml Vial 20 Ml IVP Q15M PRN SBP=>180, DBP=>105 Metoprolol Tartrate 25 mg 02/21/25 21:00 02/23/25 09:09 Metoprolol Tartrate 25 Mg Tablet PO 03/23/25 20:59 25 mg BID ALISA Administration Ondansetron HCl 4 mg 02/21/25 11:57 Ondansetron Inj 2 Mg/Ml Inj 2 Ml IVP 03/23/25 11:56 Q4HR PRN NAUSEA OR VOMITING Pantoprazole Sodium 40 mg 02/22/25 09:00 02/23/25 09:08 Pantoprazole 40 Mg Tablet PO 03/24/25 08:59 40 mg QDAY ALISA Administration Sennosides 1 tab 02/22/25 14:44 Senna/Docusate Sod 1 Tab Tablet PO 03/24/25 14:43 QDAY PRN CONSTIPATION Protocol Plan In summary: 65-year-old female PMHx of A-fib on ELIQUIS, HFrEF 25%, tachybradycardia arrhythmia, recent hemorrhagic infarct of left cerebral hemisphere without residual deficit, presenting to ED with acute episode of dizziness and left-sided weakness. Admission Head CT and head/neck CTA showed no acute pathology. Initial EKG showed sinus bradycardia with HR 55. On repeat, EKG showed atrial flutter/A-fib with RVR, HR 124. Cardiology was consulted for management of tachyarrhythmia. On evaluation, tele strip was noticeable for recurrent episodic A-fib with RVR, followed by brief episodes of sinus pause lasting about 4 seconds each, then bradycardia with HR in 40 ? 50s. She appears symptomatic during this episode; describing feeling of fainting, dizziness, lightheadedness, palpitation, and mild shortness of breath. Assessment #A-fib with RVR #Intrinsic sinus node dysfunction (sinus sick syndrome) and mildly prolonged sinus pause. - Although these episodes are brief and short lasting, she is symptomatic during episode likely secondary to significantly reduced ejection fraction of 25% as seen on echo from previous admission. Additionally, she has NSTEMI type 2 likely in setting of tachyarrhthmia, with peak troponin 0.164. BNP mildly elevated, but no signs or symptoms of CHF exacerbation at this time. - Low suspension for major/large infarct and CT head was negative for stroke. Most likely her presentation is due to arrhythmia leading to syncopal episodes (as described above). As such, no contraindication for anticoagulations. - Review of the patient's rhythm strip on 02/23/2025 showed atrial flutter with severely delayed conversion into sinus rhythm with periods of asystole lasting more than 6 seconds - Ultrasound was performed by the cardiology team on 02/23/2025 that showed no change in the patient's ejection fraction Plan: - Continue metoprolol 25 mg twice daily - Continue amiodarone 200 mg twice daily - DC Eliquis - DC Lovenox - Cardiology team is now considering pacemaker implantation due to severely delayed conversion into sinus rhythm following atrial flutter. #Stroke r/o #A fib rhythm controlled #NSTEMI type 1 vs type 2, likely demand ischemia #HFrEF 25% #Hypertension Plan: - Hopital problems managed per primary team. Patient was seen and discussed with my attending physician Dr. Nj and my senior resident Miracle Gaxiola DO PGY-2. Rizwan Martinez DO PGY-1.
[2025-02-23] MEDS: ATORVASTATIN CALCIUM 20 MG TABLET 80 MG PO (21:02)
[2025-02-24] VITALS (12 sets, daily range): BP systolic 122–132; BP diastolic 58–76; PULSE 54–124; RESP 14–96; TEMP 35.9–36.1; O2SAT 95–96; BMI 39.2
[2025-02-24 05:59] LABS: Basophils # (Auto) 0.0 Thou/mm3 (0.0-0.2); Basophils % (Auto) 0 % (0-2.5); Eosinophils # (Auto) 0.2 Thou/mm3 (0.0-0.5); Eosinophils % (Auto) 3 % (0-10); Hematocrit 42.3 % (36.0-46.0); Hemoglobin 14.7 g/dL (12.0-16.0); Immature Granulocytes Auto 0.03 Thou/mm3 (0.00-0.00); Lymphocytes # (Auto) 1.9 Thou/mm3 (1.0-4.8); Lymphocytes % (Auto) 25 % (10-50); Mean Corpuscular HGB Conc 34.8 g/dl (31.0-37.0); Mean Corpuscular Hemoglobin 29.9 pg (25.0-35.0); Mean Corpuscular Volume 86 fL (80-100); Monocytes # (Auto) 0.7 Thou/mm3 (0.0-0.8); Monocytes % (Auto) 9 % (0-12); Neutrophils # (Auto) 4.7 Thou/mm3 (1.8-7.7); Neutrophils % (Auto) 62 % (37-80); Nucleated Red Blood Cell # 0.00 Thou/mm3 (0.00-0.00); Nucleated Red Blood Cell % 0 /100 WBC (0); Platelet Count 160 Thou/mm3 (140-440); RDW Standard Deviation 43.8 fL (36.4-46.3); Red Blood Count 4.92 Miln/mm3 (4.00-5.20); White Blood Count 7.5 Thou/mm3 (3.6-11.0)
[2025-02-24 06:20] LABS: Alanine Aminotransferase 41 U/L (10-49); Albumin, Serum 4.0 gm/dL (3.4-4.8); Albumin/Globulin Ratio 1.8 (1.2-2.2); Alkaline Phosphatase 95 U/L (46-116); Anion Gap 11 (7-16); Aspartate Amino Transferase 38 U/L (0-34); BUN/Creatinine Ratio 16 Ratio (12-20); Bilirubin,Total 1.0 mg/dL (0.3-1.2); Blood Urea Nitrogen 11 mg/dL (9-23); Calcium 8.8 mg/dL (8.3-10.6); Calcium (Corrected) 8.8 mg/dL (8.5-10.1); Carbon Dioxide 26.3 mMol/L (20.0-31.0); Chloride 106 mMol/L (98-107); Creatinine (Component) 0.7 mg/dL (0.6-1.3); Estimated Creatinine Clearance 75.8 mL/min (>60); Globulin 2.2 gm/dL (2.3-3.5); Glucose 115 mg/dL (74-106); Magnesium 2.1 mg/dL (1.6-2.6); Osmolality,Calculated 285 (275-295); Phosphorous 4.0 mg/dL (2.4-5.1); Potassium 3.7 mMol/L (3.4-5.1); Sodium 143 mMol/L (136-145); Total Protein 6.2 gm/dL (5.7-8.2); eGFR > 60 See Note
[2025-02-24] MEDS: AMIODARONE HCL 200 MG TABLET PO ×2 (08:46→21:09)
[2025-02-24] MEDS: PANTOPRAZOLE 40 MG TABLET PO (08:47)
[2025-02-24] MEDS: METOPROLOL TARTRATE 25 MG TABLET PO ×2 (08:47→21:10)
--- NOTE | 2025-02-24 14:39 | PC.SS ---
SS follow up note; Patient will have a Pacemaker tomorrow. Patient will discharge home within 1-2 days.
--- NOTE | 2025-02-24 14:45 | ESPR_ITS ---
<Statement entered by Dhruv Martin MD - 02/24/25 22:51> Patient was examined and case was reviewed with team including attending physician. Note reviewed, I agree with most of its contents and agree with the patient's care as documented by Dr. Grayson Patient seen today at the bedside found awake, alert, orientedx3. No overnight events reported. Vital signs stable at this time. Patient with dizziness and chest pain with sick sinus syndrome and episodes of delayed pauses noted. Patient scheduled to have pacemaker placement thursday by Cardiology services. Dhruv Martin MD PGY-2 Documentation for date of: 02/24/25 Subjective Subjective Interval history: No overnight events. Evaluated at bedside. Cardiology plan for pacemaker placement tmr 02/25. NPO after midnight. D/C eliquis. Exam Vital Signs Temp Pulse Resp BP Pulse Ox O2 Del Method 97.0 F 102 H 19 132/72 H 96 Room Air 02/24/25 08:00 02/24/25 10:22 02/24/25 10:22 02/24/25 08:47 02/24/25 08:00 02/24/25 08:00 Narrative Exam General: Well appearing, well nourished, in no distress. Oriented x 3, normal mood and affect . Ambulating without difficulty. +Dizziness with exertion Skin: Good turgor, no rash, unusual bruising or prominent lesions Head: Normocephalic, atraumatic, no visible or palpable masses, depressions, or scaring. Heart: No cardiomegaly or thrills; tachy-chepe, 6 seconds of asystole followed by recovery to sinus rhythm, no murmur or gallop. Lungs: Clear to auscultation and percussion. No rales, wheeze, or rhonchi. Abdomen: Bowel sounds normal, no tenderness, organomegaly, masses, or hernia Back: Spine normal without deformity or tenderness, no CVA tenderness Extremities: No amputations or deformities, cyanosis, edema or varicosities, peripheral pulses intact Objective Labs 02/25/25 05:22 02/25/25 05:22 Labs: Laboratory Results - last 24 hr 02/24/25 04:30 WBC 7.5 RBC 4.92 Hgb 14.7 Hct 42.3 MCV 86 MCH 29.9 MCHC 34.8 RDW Std Deviation 43.8 Plt Count 160 Neut % (Auto) 62 Lymph % (Auto) 25 [place] % (Auto) 9 Eos % (Auto) 3 Baso % (Auto) 0 Neut # (Auto) 4.7 Lymph # (Auto) 1.9 [place] # (Auto) 0.7 Eos # (Auto) 0.2 Baso # (Auto) 0.0 Immature Gran # (Auto) 0.03 H Absolute Nucleated RBC 0.00 Immature Gran % 0 Nucleated RBC % 0 Sodium 143 Potassium 3.7 Chloride 106 Carbon Dioxide 26.3 Anion Gap 11 BUN 11 Creatinine 0.7 Estim Creat Clear Calc 75.8 eGFR > 60 BUN/Creatinine Ratio 16 Glucose 115 H Calculated Osmolality 285 Calcium 8.8 Corrected Calcium 8.8 Phosphorus 4.0 Magnesium 2.1 Total Bilirubin 1.0 AST 38 H ALT 41 Alkaline Phosphatase 95 Total Protein 6.2 Albumin 4.0 Globulin 2.2 L Albumin/Globulin Ratio 1.8 Quality Measures Quality Measures VTE prophylaxis (SCD. ) Assessment & Plan Assessment Current Active Medications: Generic Name Dose Route Start Last Admin Trade Name Freq PRN Reason Stop Dose Admin Acetaminophen 325 mg 02/21/25 14:18 Acetaminophen 325 Mg Tablet PO 03/23/25 14:17 Q6HR PRN FEVER >101 Amiodarone HCl 200 mg 02/21/25 21:00 02/24/25 08:46 Amiodarone Hcl 200 Mg Tablet PO 03/23/25 20:59 200 mg BID ALISA Administration Atorvastatin Calcium 80 mg 02/22/25 21:00 02/23/25 21:02 Atorvastatin Calcium 20 Mg Tablet PO 03/24/25 20:59 80 mg HS ALISA Administration Labetalol HCl 10 mg 02/21/25 11:57 Labetalol Inj 5 Mg/Ml Vial 20 Ml IVP Q15M PRN SBP=>180, DBP=>105 Metoprolol Tartrate 25 mg 02/21/25 21:00 02/24/25 08:47 Metoprolol Tartrate 25 Mg Tablet PO 03/23/25 20:59 25 mg BID ALISA Administration Ondansetron HCl 4 mg 02/21/25 11:57 Ondansetron Inj 2 Mg/Ml Inj 2 Ml IVP 03/23/25 11:56 Q4HR PRN NAUSEA OR VOMITING Pantoprazole Sodium 40 mg 02/22/25 09:00 02/24/25 08:47 Pantoprazole 40 Mg Tablet PO 03/24/25 08:59 40 mg QDAY ALISA Administration Sennosides 1 tab 02/22/25 14:44 Senna/Docusate Sod 1 Tab Tablet PO 03/24/25 14:43 QDAY PRN CONSTIPATION Protocol Plan Mrs. Blanco is a 65F with history of a fib on Eliquis, HFrEF 25% (echo 01/22/25), recent CVA (acute infarct left cerebellar hemisphere, nonhemorrhagic) in January 2025 with no focal neuro deficit admitted for stroke r/o. Cardiology consulted, continue on metoprolol 25mg BID and amiodarone 200mg BID. HOLD Eliquis. Plan for pacemaker placement tmr. #Stroke r/o Hx of CVA in January [address] showing Acute infarct left cerebellar hemisphere nonhemorrhagic Pt reported left sided numbness on face and arm. NIHSS 1. CT head and CTA Head and neck unremarkable. Dx: - Stat MRI Brain ordered per neurology recs 02/22. It showed no acute infarct, large old infarct left cerebellar hemisphere. Tx: - Aspirin 325mg x 1 - Neuro checks Q4. - Bedside swallow eval - DVT prophylaxis - Head of Bed 30 degrees - Euglycemia and avoid hyperthermia (PRN acetamonophen) - Permissive hypertension - Neurology consult, concerned for increased risk of hemorrhagic transformation if starting pt on anticoag, stat MRI Brain ordered on 02/22. - Brain MRI did not show any acute ischemic stroke, ok to continue full anticoagulation., from neurology perspective no need to add Antiplatelets to Anticoagulation. - Statin for goal LDL < 70, resume atorvastatin 80mg PO HS - slowly and gradually lower Blood Pressure to <130/80 over the course of one week - Neurology signed off. Follow up with outpatient neurology in 2-3weeks. #A fib rhythm controlled #Sick Sinus Syndrome Hx of a fib on Eliquis 2.5mg BID, rhythm controlled with metoprolol 25mg BID amiodarone 200mg PO BID. 02/21: First EKG at 1221 showed sinus chepe at rate of 55. Second EKG at 1458 showed sinus tach at rate of 124. Dx: - Repeat EKG as need if new onset CP or rhythm change Tx: - cardiology consulted - continue on metoprolol 25mg BID, amiodarone 200mg BID - Hold Eliquis 5mg BID, D/C Lovenox - pacemaker placement for 02/25. #NSTEMI type 1 vs type 2, likely demand ischemia Initial trop 0.073, repeat trop 0.078. Dx: - EKG, trend trop, can stop after peak Tx: - Supplemental O2 with goal of >90% - Consider nitro if active CP #HFrEF 25% Echo on 01/22/25 showed LVEF of 25% Trop peaked at 0.082. Tx: - Hold furosemide and benazepril, resume if BP tolerates - Strict I/Os - Monitor urine output - obtain daily weight #Hypertension Chronic medical condition Tx: - continue metoprolol 25mg BID - outpt PCP followup Dispo: Tele w/ cardiac monitoring DVT prophylaxis: SCDs GI prophylaxis: Protonix 40 Diet: Cardiac diet, NPO after midnight Lines: Peripheral IV Code status: Full code Case discussed with my senior resident Dr. Rockwell Case discussed with my attending Dr. Isaura Grayson DO PGY 1 Attending Provider Attestation/Addendum I have examined the patient, reviewed labs and imaging findings, discussed the case with the resident(s), and reviewed entered orders. I agree with the plan of care as outlined in this note, with these additional summaries/recommendations: Patient seen at bedside. No acute overnight events. Today patient continues to endorse intermittent dizziness and chest pain. Chest pain rated as mild. Patient completed MRI brain which was negative for acute hemorrhage, mass effect, midline shift, or acute infract. It did reveal large old infract left cerebral hemisphere. Patient continues to endorse dizziness and is intermittently bradycardic and tachycardic. Patient's dizziness most likely secondary to arrhythmia as CVA ruled out. Patient will go for cardiac catheterization on Thursday02/25/25 with likely pacemaker placement. N.p.o. after midnight and hold chemical anticoagulation. Cardiology following, recommendations appreciated. Patient and family updated on the plan. All questions answered to satisfaction. Please see residents note for additional details of management. Dr. Isaura MD
[2025-02-24] MEDS: ATORVASTATIN CALCIUM 20 MG TABLET 80 MG PO (21:09)
--- NOTE | 2025-02-24 21:46 | ESPR_ITS ---
<Statement entered by Miracle Gaxiola MD - 02/25/25 16:50> In summary: 65-year-old female PMHx of A-fib on ELIQUIS, HFrEF 25%, tachybradycardia arrhythmia, recent hemorrhagic infarct of left cerebral hemisphere without residual deficit, presenting to ED with acute episode of dizziness and left-sided weakness. Admission Head CT and head/neck CTA showed no acute pathology. Initial EKG showed sinus bradycardia with HR 55. On repeat, EKG showed atrial flutter/A-fib with RVR, HR 124. Cardiology was consulted for management of tachyarrhythmia. Overall doing fairly well. Tele showing sinus rhythm with recurrent PVCs, HR controlled. DIGOXIN level came back normal. Will continue with AMIODARONE and METOPROLOL as previously. Denies new or worsening symptoms, but reports improving in dizziness and lightheadedness. Today she continues to have prolonged sinus pause, around 4 seconds each. She is again symptomatic with these episodes with dizziness and lightheadedness. Will discontinue ELIQUIS, will proceed with pacemaker placement on Sunday 02/25. I?ve reviewed the note and agree with the resident's assessment and plan, with the exceptions outlined above. I personally went over the labs, imaging, home medications, and prior records, and examined the patient. The case was also reviewed with the attending physician. Please note: this document was transcribed using voice recognition technology; minor inaccuracies may be present. Miracle Gaxiola DO PGY II <Statement entered by Leon Nj MD - 02/25/25 08:33> I personally evaluated examined this patient who came to the hospital with atrial fibrillation during conversion to sinus rhythm patient had 5-second pauses but patient had episodes of 5-second pause [id number] near syncope still having the paroxysmal atrial episodes A-fib a flutter fibrillation possibly same thing is happening at home she has had A-fib history of near syncope at home recommended dual-chamber pacemaker implantation. Risk benefits alternatives explained with chemistry tutor agree with treatment plan recommendation as documented schedule for permanent placement plantation tomorrow morning. Documentation for date of: 02/24/25 Subjective Subjective Interval history: Patient continues to be in long periods of asystole lasting 5 or more seconds after she attempts to convert from atrial flutter to sinus rhythm. Plan for pacemaker placement on 02/25/2025. Blood pressure stable. Exam Vital Signs Temp Pulse Resp BP Pulse Ox O2 Del Method 97.0 F 110 H 24 H 130/63 95 Room Air 02/24/25 20:00 02/24/25 21:10 02/24/25 20:00 02/24/25 21:10 02/24/25 20:00 02/24/25 20:00 Narrative Exam General: Obese lady. Awake and in no acute distress. Conversational and non- toxic appearing. Neurologic: Alert and oriented x3. HEENT: Normocephalic, atraumatic, mucous membranes moist. Pupils reactive to light. Heart: Periods of 5 second asystole followed by recovery to sinus rhythm. Lungs: Clear to auscultation bilaterally with no wheezing or crackles. Abdomen: Obese, soft, nondistended, nontender, positive bowel sounds. No guarding or rebound tenderness. Extremities: Ataxia in the left upper extremity, weakness in the left upper extremity. Weakness in the left lower extremity. 2+ radial and dorsalis pedis pulses bilaterally. Skin: Warm. Dry. No rash or ecchymoses. Objective Labs 02/25/25 05:22 02/25/25 05:22 Labs: Laboratory Results - last 24 hr 02/24/25 04:30 WBC 7.5 RBC 4.92 Hgb 14.7 Hct 42.3 MCV 86 MCH 29.9 MCHC 34.8 RDW Std Deviation 43.8 Plt Count 160 Neut % (Auto) 62 Lymph % (Auto) 25 [place] % (Auto) 9 Eos % (Auto) 3 Baso % (Auto) 0 Neut # (Auto) 4.7 Lymph # (Auto) 1.9 [place] # (Auto) 0.7 Eos # (Auto) 0.2 Baso # (Auto) 0.0 Immature Gran # (Auto) 0.03 H Absolute Nucleated RBC 0.00 Immature Gran % 0 Nucleated RBC % 0 Sodium 143 Potassium 3.7 Chloride 106 Carbon Dioxide 26.3 Anion Gap 11 BUN 11 Creatinine 0.7 Estim Creat Clear Calc 75.8 eGFR > 60 BUN/Creatinine Ratio 16 Glucose 115 H Calculated Osmolality 285 Calcium 8.8 Corrected Calcium 8.8 Phosphorus 4.0 Magnesium 2.1 Total Bilirubin 1.0 AST 38 H ALT 41 Alkaline Phosphatase 95 Total Protein 6.2 Albumin 4.0 Globulin 2.2 L Albumin/Globulin Ratio 1.8 Quality Measures Quality Measures VTE prophylaxis (SCD. ) Assessment & Plan Assessment Current Active Medications: Generic Name Dose Route Start Last Admin Trade Name Freq PRN Reason Stop Dose Admin Acetaminophen 325 mg 02/21/25 14:18 Acetaminophen 325 Mg Tablet PO 03/23/25 14:17 Q6HR PRN FEVER >101 Amiodarone HCl 200 mg 02/21/25 21:00 02/24/25 21:09 Amiodarone Hcl 200 Mg Tablet PO 03/23/25 20:59 200 mg BID ALISA Administration Atorvastatin Calcium 80 mg 02/22/25 21:00 02/24/25 21:09 Atorvastatin Calcium 20 Mg Tablet PO 03/24/25 20:59 80 mg HS ALISA Administration Labetalol HCl 10 mg 02/21/25 11:57 Labetalol Inj 5 Mg/Ml Vial 20 Ml IVP Q15M PRN SBP=>180, DBP=>105 Metoprolol Tartrate 25 mg 02/21/25 21:00 02/24/25 21:10 Metoprolol Tartrate 25 Mg Tablet PO 03/23/25 20:59 25 mg BID ALISA Administration Ondansetron HCl 4 mg 02/21/25 11:57 Ondansetron Inj 2 Mg/Ml Inj 2 Ml IVP 03/23/25 11:56 Q4HR PRN NAUSEA OR VOMITING Pantoprazole Sodium 40 mg 02/22/25 09:00 02/24/25 08:47 Pantoprazole 40 Mg Tablet PO 03/24/25 08:59 40 mg QDAY ALISA Administration Sennosides 1 tab 02/22/25 14:44 Senna/Docusate Sod 1 Tab Tablet PO 03/24/25 14:43 QDAY PRN CONSTIPATION Protocol Plan In summary: 65-year-old female PMHx of A-fib on ELIQUIS, HFrEF 25%, tachybradycardia arrhythmia, recent hemorrhagic infarct of left cerebral hemisphere without residual deficit, presenting to ED with acute episode of dizziness and left-sided weakness. Admission Head CT and head/neck CTA showed no acute pathology. Initial EKG showed sinus bradycardia with HR 55. On repeat, EKG showed atrial flutter/A-fib with RVR, HR 124. Cardiology was consulted for management of tachyarrhythmia. On evaluation, tele strip was noticeable for recurrent episodic A-fib with RVR, followed by brief episodes of sinus pause lasting about 4 seconds each, then bradycardia with HR in 40 ? 50s. She appears symptomatic during this episode; describing feeling of fainting, dizziness, lightheadedness, palpitation, and mild shortness of breath. Assessment #A-fib with RVR #Intrinsic sinus node dysfunction (sinus sick syndrome) and mildly prolonged sinus pause. - Although these episodes are brief and short lasting, she is symptomatic during episode likely secondary to significantly reduced ejection fraction of 25% as seen on echo from previous admission. Additionally, she has NSTEMI type 2 likely in setting of tachyarrhthmia, with peak troponin 0.164. BNP mildly elevated, but no signs or symptoms of CHF exacerbation at this time. - Low suspension for major/large infarct and CT head was negative for stroke. Most likely her presentation is due to arrhythmia leading to syncopal episodes (as described above). As such, no contraindication for anticoagulations. - Review of the patient's rhythm strip on 02/23/2025 showed atrial flutter with severely delayed conversion into sinus rhythm with periods of asystole lasting more than 6 seconds - Ultrasound was performed by the cardiology team on 02/23/2025 that showed no change in the patient's ejection fraction Plan: - Plan to place pacemaker 02/25/2025 - Continue metoprolol 25 mg twice daily - Continue amiodarone 200 mg twice daily #Stroke r/o #A fib rhythm controlled #NSTEMI type 1 vs type 2, likely demand ischemia #HFrEF 25% #Hypertension Plan: - Hospital problems managed per primary team. Patient was seen and discussed with my attending physician Dr. Nj and my senior resident Miracle Gaxiola DO PGY-2. Rizwan Martinez DO PGY-1.
--- NOTE | 2025-02-24 22:32 | PC.NURSE ---
MD Alvares notified patient having 3 and 4 secs pauses. No new orders at this time
[2025-02-25] VITALS (17 sets, daily range): BP systolic 104–146; BP diastolic 52–90; PULSE 56–128; RESP 14–24; TEMP 36–36.9; O2SAT 94–99; BMI 39.2
[2025-02-25 06:10] LABS: Basophils # (Auto) 0.1 Thou/mm3 (0.0-0.2); Basophils % (Auto) 1 % (0-2.5); Eosinophils # (Auto) 0.2 Thou/mm3 (0.0-0.5); Eosinophils % (Auto) 3 % (0-10); Hematocrit 42.8 % (36.0-46.0); Hemoglobin 14.8 g/dL (12.0-16.0); Immature Granulocytes Auto 0.03 Thou/mm3 (0.00-0.00); Lymphocytes # (Auto) 1.7 Thou/mm3 (1.0-4.8); Lymphocytes % (Auto) 23 % (10-50); Mean Corpuscular HGB Conc 34.6 g/dl (31.0-37.0); Mean Corpuscular Hemoglobin 29.7 pg (25.0-35.0); Mean Corpuscular Volume 86 fL (80-100); Monocytes # (Auto) 0.7 Thou/mm3 (0.0-0.8); Monocytes % (Auto) 9 % (0-12); Neutrophils # (Auto) 4.9 Thou/mm3 (1.8-7.7); Neutrophils % (Auto) 65 % (37-80); Nucleated Red Blood Cell # 0.00 Thou/mm3 (0.00-0.00); Nucleated Red Blood Cell % 0 /100 WBC (0); Platelet Count 166 Thou/mm3 (140-440); RDW Standard Deviation 44.0 fL (36.4-46.3); Red Blood Count 4.98 Miln/mm3 (4.00-5.20); White Blood Count 7.5 Thou/mm3 (3.6-11.0)
[2025-02-25 06:33] LABS: Alanine Aminotransferase 60 U/L (10-49); Albumin, Serum 4.0 gm/dL (3.4-4.8); Albumin/Globulin Ratio 1.7 (1.2-2.2); Alkaline Phosphatase 120 U/L (46-116); Anion Gap 9 (7-16); Aspartate Amino Transferase 44 U/L (0-34); BUN/Creatinine Ratio 18 Ratio (12-20); Bilirubin,Total 0.8 mg/dL (0.3-1.2); Blood Urea Nitrogen 14 mg/dL (9-23); Calcium 8.8 mg/dL (8.3-10.6); Calcium (Corrected) 8.8 mg/dL (8.5-10.1); Carbon Dioxide 26.0 mMol/L (20.0-31.0); Chloride 106 mMol/L (98-107); Creatinine (Component) 0.8 mg/dL (0.6-1.3); Estimated Creatinine Clearance 64.8 mL/min (>60); Globulin 2.3 gm/dL (2.3-3.5); Glucose 151 mg/dL (74-106); Magnesium 2.0 mg/dL (1.6-2.6); Osmolality,Calculated 284 (275-295); Phosphorous 3.6 mg/dL (2.4-5.1); Potassium 3.7 mMol/L (3.4-5.1); Sodium 141 mMol/L (136-145); Total Protein 6.3 gm/dL (5.7-8.2); eGFR > 60 See Note
[2025-02-25] MEDS: METOPROLOL TARTRATE 25 MG TABLET PO ×2 (08:24→21:07)
[2025-02-25] MEDS: PANTOPRAZOLE 40 MG TABLET PO (08:25)
[2025-02-25] MEDS: AMIODARONE HCL 200 MG TABLET PO ×2 (08:25→21:08)
--- NOTE | 2025-02-25 08:30 | XR_ITS ---
Examination: Chest portable AP 2 views Fluoroscopy Date and time: February 25, 2025 1112 hours INDICATIONS: Pacemaker insertion today TECHNIQUE AND FINDINGS: 2 spot fluoroscopic chest films Cardiac leads satisfactory position Fluoroscopy 3.53 minutes radiation dose 40.855 mgy IMPRESSION: Cardiac leads satisfactory position
--- NOTE | 2025-02-25 09:15 | ESPR_ITS ---
<Statement entered by David Rdz MD - 02/25/25 14:37> Senior Resident Attestation: I supervised/discussed management plan with application development intern physician Dr. Grayson, and was involved in the care of this patient. I personally saw and examined the patient and discussed the assessment and plan with the entire medicine team, including my attending. I agree with the assessment and plan as documented. No acute overnight events reported. Patient was seen and examined at the bedside. Patient underwent pacemaker implantation today without complications, her Eliquis was held. She was started on Keflex for 1 week. Will continue current management and monitor patient, anticipate discharge tomorrow. Patient's care was discussed with attending physician, Dr. Delarosa. David Rdz MD PGY-3. Documentation for date of: 02/25/25 Subjective Subjective Interval history: No overnight events. Evaluated at bedside. [facility] taken to [facility] pacemaker placement this morning. Pt tolerated the procedure well, is currently eating with family at bedside. Per cardiology team, they are okay with discharge as long as pt is stable. Exam Vital Signs Temp Pulse Resp BP Pulse Ox O2 Del Method 97.3 F 56 L 14 122/73 99 Room Air 02/25/25 08:00 02/25/25 08:25 02/25/25 08:00 02/25/25 08:25 02/25/25 08:00 02/25/25 08:00 Narrative Exam General: Well appearing, well nourished, in no distress. Oriented x 3, normal mood and affect . Ambulating without difficulty. +Dizziness with exertion Skin: Good turgor, no rash, unusual bruising or prominent lesions Head: Normocephalic, atraumatic, no visible or palpable masses, depressions, or scaring. Heart: No cardiomegaly or thrills; regular rate with pacemaker now, no murmur or gallop. Lungs: Clear to auscultation and percussion. No rales, wheeze, or rhonchi. Abdomen: Bowel sounds normal, no tenderness, organomegaly, masses, or hernia Back: Spine normal without deformity or tenderness, no CVA tenderness Extremities: No amputations or deformities, cyanosis, edema or varicosities, peripheral pulses intact Objective Labs 02/25/25 05:22 02/25/25 05:22 Labs: Laboratory Results - last 24 hr 02/25/25 05:22 WBC 7.5 RBC 4.98 Hgb 14.8 Hct 42.8 MCV 86 MCH 29.7 MCHC 34.6 RDW Std Deviation 44.0 Plt Count 166 Neut % (Auto) 65 Lymph % (Auto) 23 [place] % (Auto) 9 Eos % (Auto) 3 Baso % (Auto) 1 Neut # (Auto) 4.9 Lymph # (Auto) 1.7 [place] # (Auto) 0.7 Eos # (Auto) 0.2 Baso # (Auto) 0.1 Immature Gran # (Auto) 0.03 H Absolute Nucleated RBC 0.00 Immature Gran % 0 Nucleated RBC % 0 Sodium 141 Potassium 3.7 Chloride 106 Carbon Dioxide 26.0 Anion Gap 9 BUN 14 Creatinine 0.8 Estim Creat Clear Calc 64.8 eGFR > 60 BUN/Creatinine Ratio 18 Glucose 151 H Calculated Osmolality 284 Calcium 8.8 Corrected Calcium 8.8 Phosphorus 3.6 Magnesium 2.0 Total Bilirubin 0.8 AST 44 H ALT 60 H Alkaline Phosphatase 120 H D Total Protein 6.3 Albumin 4.0 Globulin 2.3 Albumin/Globulin Ratio 1.7 Quality Measures Quality Measures VTE prophylaxis (SCD. ) Assessment & Plan Assessment Current Active Medications: Generic Name Dose Route Start Last Admin Trade Name Freq PRN Reason Stop Dose Admin Acetaminophen 325 mg 02/21/25 14:18 Acetaminophen 325 Mg Tablet PO 03/23/25 14:17 Q6HR PRN FEVER >101 Amiodarone HCl 200 mg 02/21/25 21:00 02/25/25 08:25 Amiodarone Hcl 200 Mg Tablet PO 03/23/25 20:59 200 mg BID ALISA Administration Atorvastatin Calcium 80 mg 02/22/25 21:00 02/24/25 21:09 Atorvastatin Calcium 20 Mg Tablet PO 03/24/25 20:59 80 mg HS ALISA Administration Labetalol HCl 10 mg 02/21/25 11:57 Labetalol Inj 5 Mg/Ml Vial 20 Ml IVP Q15M PRN SBP=>180, DBP=>105 Metoprolol Tartrate 25 mg 02/21/25 21:00 02/25/25 08:24 Metoprolol Tartrate 25 Mg Tablet PO 03/23/25 20:59 25 mg BID ALISA Administration Ondansetron HCl 4 mg 02/21/25 11:57 Ondansetron Inj 2 Mg/Ml Inj 2 Ml IVP 03/23/25 11:56 Q4HR PRN NAUSEA OR VOMITING Pantoprazole Sodium 40 mg 02/22/25 09:00 02/25/25 08:25 Pantoprazole 40 Mg Tablet PO 03/24/25 08:59 40 mg QDAY ALISA Administration Sennosides 1 tab 02/22/25 14:44 Senna/Docusate Sod 1 Tab Tablet PO 03/24/25 14:43 QDAY PRN CONSTIPATION Protocol Plan Mrs. Blanco is a 65F with history of a fib on Eliquis, HFrEF 25% (echo 01/22/25), recent CVA (acute infarct left cerebellar hemisphere, nonhemorrhagic) in January 2025 with no focal neuro deficit admitted for stroke r/o. S/P pacemaker on 02/25/25. Likely D/C tmr pending final cardiology recommendation. #A fib rhythm controlled #Sick Sinus Syndrome s/p pacemaker placement Hx of a fib on Eliquis 2.5mg BID, rhythm controlled with metoprolol 25mg BID amiodarone 200mg PO BID. 02/21: First EKG at 1221 showed sinus chepe at rate of 55. Second EKG at 1458 showed sinus tach at rate of 124. 02/25: pacemaker placement this morning Dx: - Repeat EKG as need if new onset CP or rhythm change Tx: - cardiology consulted, pacemaker placement 02/25 - continue on metoprolol 25mg BID, amiodarone 200mg BID - Hold Eliquis 5mg BID, D/C Lovenox #Stroke r/o Hx of CVA in January [address] showing Acute infarct left cerebellar hemisphere nonhemorrhagic Pt reported left sided numbness on face and arm. NIHSS 1. CT head and CTA Head and neck unremarkable. Dx: - Stat MRI Brain ordered per neurology recs 02/22. It showed no acute infarct, large old infarct left cerebellar hemisphere. Tx: - Aspirin 325mg x 1 - Neuro checks Q4. - Bedside swallow eval - DVT prophylaxis - Head of Bed 30 degrees - Euglycemia and avoid hyperthermia (PRN acetamonophen) - Permissive hypertension - Neurology consult, concerned for increased risk of hemorrhagic transformation if starting pt on anticoag, stat MRI Brain ordered on 02/22. - Brain MRI did not show any acute ischemic stroke, ok to continue full anticoagulation., from neurology perspective no need to add Antiplatelets to Anticoagulation. - Statin for goal LDL < 70, resume atorvastatin 80mg PO HS - slowly and gradually lower Blood Pressure to <130/80 over the course of one week - Neurology signed off. Follow up with outpatient neurology in 2-3weeks. #NSTEMI type 1 vs type 2, likely demand ischemia Initial trop 0.073, repeat trop 0.078. Dx: - EKG, trend trop, can stop after peak Tx: - Supplemental O2 with goal of >90% - Consider nitro if active CP #HFrEF 25% Echo on 01/22/25 showed LVEF of 25% Trop peaked at 0.082. Tx: - Hold furosemide and benazepril, resume if BP tolerates - Strict I/Os - Monitor urine output - obtain daily weight #Hypertension Chronic medical condition Tx: - continue metoprolol 25mg BID - outpt PCP followup Dispo: Tele w/ cardiac monitoring DVT prophylaxis: SCDs GI prophylaxis: Protonix 40 Diet: Cardiac diet Lines: Peripheral IV Code status: Full code Case discussed with my senior resident Dr. Rdz Case discussed with my attending Dr. Isaura Grayson, PGY 1 Attending Provider Attestation/Addendum I have examined the patient, reviewed labs and imaging findings, discussed the case with the resident(s), and reviewed entered orders. I agree with the plan of care as outlined in this note, with these additional summaries/recommendations: Patient seen at bedside. No acute overnight events. She continues to endorse intermittent lightheadedness. She will go for pacemaker placement today with cardiology for sick sinus syndrome. N.p.o. and hold chemical anticoagulation. Cardiology following, recommendations appreciated. Continue amiodarone 200 mg twice daily and resume metoprolol after pacemaker placement. We will follow-up with cardiology on when to resume home Eliquis. Anticipate discharge in the next 24 to 48 hours barring no setbacks. Digoxin discontinued. Patient and family updated on the plan. All questions answered to satisfaction. Please see residents note for additional details of management. Dr. Isaura MD
--- NOTE | 2025-02-25 11:01 | SUR.PHASEI ---
pt received to [facility]. vss. awake and alert. sling in place. denies pain and nausea. dressing to left chest cdi with tegaderm. report from nurse mayer and jonah lindquist.
--- NOTE | 2025-02-25 11:30 | XR_ITS ---
Exam nation: AP chest single view TECHNIQUE: AP portable upright chest single view Date and time: February 25, 2025, 1135 hours INDICATIONS: Status post pacemaker insertion today FINDINGS: Cardiac leads satisfactory position Mild enlargement cardiac contour. Moderate prominence pulmonary vasculature. Subsegmental atelectasis left base. No pneumothorax. Prominent osteopenia. IMPRESSION: Cardiac leads satisfactory position
[2025-02-25] MEDS: ACETAMINOPHEN IVPB 1,000 MG/100 ML VIAL 250 MG IV (11:34)
--- NOTE | 2025-02-25 11:45 | SUR.PHASEI ---
report called to evelia on tele. vss. cxr taken. breathing even and unlabored. states pain is better after iv tylenol. transported to room via bed. dressing remains cdi.
--- NOTE | 2025-02-25 14:24 | ESPR_ITS ---
<Statement entered by Leon Nj MD - 02/26/25 18:47> I personally examined the patient again postoperatively doing well underwent permanent placement plantation successfully because of sick sinus syndrome long pauses patient should continue to feel well we can discharge home later today or tomorrow morning Beto will see her for follow-up in 1 week following discharge. Documentation for date of: 02/25/25 Subjective Subjective Interval history: No acute overnight events. Denies new or worsening symptoms. She still having dizzy spells here and there but no chest pain or shortness of breath. Telemetry reviewed showing again prolonged sinus pauses, up to 6-second, she appears symptomatic during these episodes. Completed successful pacemaker placement today. Rate appears controlled. May be discharged today on CEPHALEXIN for 7 days. Hold ELIQUIS on discharge, will resume in office in 1 week. Exam Vital Signs Temp Pulse Resp BP Pulse Ox O2 Del Method 97.5 F 68 18 134/52 H 96 Room Air 02/25/25 11:45 02/25/25 12:00 02/25/25 11:45 02/25/25 11:45 02/25/25 11:45 02/25/25 11:45 Narrative Exam General: Obese lady. Awake and in no acute distress. Conversational and non- toxic appearing. Neurologic: Alert and oriented x3. HEENT: Normocephalic, atraumatic, mucous membranes moist. Pupils reactive to light. Heart: Periods of 5 second asystole followed by recovery to sinus rhythm. Lungs: Clear to auscultation bilaterally with no wheezing or crackles. Abdomen: Obese, soft, nondistended, nontender, positive bowel sounds. No guarding or rebound tenderness. Extremities: Ataxia in the left upper extremity, weakness in the left upper extremity. Weakness in the left lower extremity. 2+ radial and dorsalis pedis pulses bilaterally. Skin: Warm. Dry. No rash or ecchymoses. Objective Labs 02/25/25 05:22 02/25/25 05:22 Labs: Laboratory Results - last 24 hr 02/25/25 05:22 WBC 7.5 RBC 4.98 Hgb 14.8 Hct 42.8 MCV 86 MCH 29.7 MCHC 34.6 RDW Std Deviation 44.0 Plt Count 166 Neut % (Auto) 65 Lymph % (Auto) 23 Walton % (Auto) 9 Eos % (Auto) 3 Baso % (Auto) 1 Neut # (Auto) 4.9 Lymph # (Auto) 1.7 Walton # (Auto) 0.7 Eos # (Auto) 0.2 Baso # (Auto) 0.1 Immature Gran # (Auto) 0.03 H Absolute Nucleated RBC 0.00 Immature Gran % 0 Nucleated RBC % 0 Sodium 141 Potassium 3.7 Chloride 106 Carbon Dioxide 26.0 Anion Gap 9 BUN 14 Creatinine 0.8 Estim Creat Clear Calc 64.8 eGFR > 60 BUN/Creatinine Ratio 18 Glucose 151 H Calculated Osmolality 284 Calcium 8.8 Corrected Calcium 8.8 Phosphorus 3.6 Magnesium 2.0 Total Bilirubin 0.8 AST 44 H ALT 60 H Alkaline Phosphatase 120 H D Total Protein 6.3 Albumin 4.0 Globulin 2.3 Albumin/Globulin Ratio 1.7 Quality Measures Quality Measures VTE prophylaxis (SCD. ) Assessment & Plan Assessment Current Active Medications: Generic Name Dose Route Start Last Admin Trade Name Freq PRN Reason Stop Dose Admin Acetaminophen 325 mg 02/21/25 14:18 Acetaminophen 325 Mg Tablet PO 03/23/25 14:17 Q6HR PRN FEVER >101 Amiodarone HCl 200 mg 02/21/25 21:00 02/25/25 08:25 Amiodarone Hcl 200 Mg Tablet PO 03/23/25 20:59 200 mg BID ALISA Administration Atorvastatin Calcium 80 mg 02/22/25 21:00 02/24/25 21:09 Atorvastatin Calcium 20 Mg Tablet PO 03/24/25 20:59 80 mg HS ALISA Administration Metoprolol Tartrate 25 mg 02/21/25 21:00 02/25/25 08:24 Metoprolol Tartrate 25 Mg Tablet PO 03/23/25 20:59 25 mg BID ALISA Administration Pantoprazole Sodium 40 mg 02/22/25 09:00 02/25/25 08:25 Pantoprazole 40 Mg Tablet PO 03/24/25 08:59 40 mg QDAY ALISA Administration Sennosides 1 tab 02/22/25 14:44 Senna/Docusate Sod 1 Tab Tablet PO 03/24/25 14:43 QDAY PRN CONSTIPATION Protocol Plan In summary: 65-year-old female PMHx of A-fib on ELIQUIS, HFrEF 25%, tachybradycardia arrhythmia, recent hemorrhagic infarct of left cerebral hemisphere without residual deficit, presenting to ED with acute episode of dizziness and left-sided weakness. Admission Head CT and head/neck CTA showed no acute pathology. Initial EKG showed sinus bradycardia with HR 55. On repeat, EKG showed atrial flutter/A-fib with RVR, HR 124. Cardiology was consulted for management of tachyarrhythmia. On evaluation, tele strip was noticeable for recurrent episodic A-fib with RVR, followed by brief episodes of sinus pause lasting about 4 seconds each, then bradycardia with HR in 40 ? 50s. She appears symptomatic during this episode; describing feeling of fainting, dizziness, lightheadedness, palpitation, and mild shortness of breath. Assessment #A-fib with RVR #Intrinsic sinus node dysfunction (sinus sick syndrome) and mildly prolonged sinus pause. - Although these episodes are brief and short lasting, she is symptomatic during episode likely secondary to significantly reduced ejection fraction of 25% as seen on echo from previous admission. Additionally, she has NSTEMI type 2 likely in setting of tachyarrhthmia, with peak troponin 0.164. BNP mildly elevated, but no signs or symptoms of CHF exacerbation at this time. - Low suspension for major/large infarct and CT head was negative for stroke. Most likely her presentation is due to arrhythmia leading to syncopal episodes (as described above). As such, no contraindication for anticoagulations. - Review of the patient's rhythm strip on 02/23/2025 showed atrial flutter with severely delayed conversion into sinus rhythm with periods of asystole lasting more than 6 seconds - Ultrasound was performed by the cardiology team on 02/23/2025 that showed no change in the patient's ejection fraction 02/25/2025: Continues to have sinus pauses, up to 6 seconds, appears symptomatic during these episodes with dizziness but no chest pain or shortness of breath. She underwent successful pacemaker placement today, tolerated procedure well, no complications, heart rate appears controlled after. Will continue with AMIODARONE and MIDODRINE on discharge, addition of CEPHALEXIN for 7 days, hold ELIQUIS for 7 days until can be seen in office. Plan: - Continue metoprolol 25 mg twice daily - Continue amiodarone 200 mg twice daily ? Continue CEPHALEXIN BID for 7 days - DC Eliquis - DC Lovenox - Cardiology team is now considering pacemaker implantation due to severely delayed conversion into sinus rhythm following atrial flutter. #Stroke r/o #A fib rhythm controlled #NSTEMI type 1 vs type 2, likely demand ischemia #HFrEF 25% #Hypertension Plan: - Hopital problems managed per primary team. Patient was seen and discussed with my attending physician Dr. Nj and my senior resident Miracle Gaxiola DO PGY-2. Rizwan Martinez DO PGY-1.
[2025-02-25] MEDS: HYDROcodone/APAP 5/325 TABLET 1 TAB PO (18:21)
[2025-02-25] MEDS: ATORVASTATIN CALCIUM 20 MG TABLET 80 MG PO (21:07)
[2025-02-26] VITALS: BP 100/56; PULSE 121; PULSE 96; RESP 13; TEMP 36.2; O2SAT 96
[2025-02-26 04:00] VITALS: BP 108/58; PULSE 60; RESP 15; TEMP 36.2; O2SAT 96
[2025-02-26 05:48] VITALS: BMI 39.2
[2025-02-26 06:12] LABS: Basophils # (Auto) 0.0 Thou/mm3 (0.0-0.2); Basophils % (Auto) 0 % (0-2.5); Eosinophils # (Auto) 0.1 Thou/mm3 (0.0-0.5); Eosinophils % (Auto) 2 % (0-10); Hematocrit 41.4 % (36.0-46.0); Hemoglobin 14.2 g/dL (12.0-16.0); Immature Granulocytes Auto 0.03 Thou/mm3 (0.00-0.00); Lymphocytes # (Auto) 1.6 Thou/mm3 (1.0-4.8); Lymphocytes % (Auto) 23 % (10-50); Mean Corpuscular HGB Conc 34.3 g/dl (31.0-37.0); Mean Corpuscular Hemoglobin 30.0 pg (25.0-35.0); Mean Corpuscular Volume 88 fL (80-100); Monocytes # (Auto) 0.6 Thou/mm3 (0.0-0.8); Monocytes % (Auto) 9 % (0-12); Neutrophils # (Auto) 4.8 Thou/mm3 (1.8-7.7); Neutrophils % (Auto) 66 % (37-80); Nucleated Red Blood Cell # 0.00 Thou/mm3 (0.00-0.00); Nucleated Red Blood Cell % 0 /100 WBC (0); Platelet Count 154 Thou/mm3 (140-440); RDW Standard Deviation 46.2 fL (36.4-46.3); Red Blood Count 4.73 Miln/mm3 (4.00-5.20); White Blood Count 7.2 Thou/mm3 (3.6-11.0)
[2025-02-26] MEDS: HYDROcodone/APAP 5/325 TABLET 1 TAB PO (07:09)
[2025-02-26 07:10] LABS: Alanine Aminotransferase 44 U/L (10-49); Albumin, Serum 3.9 gm/dL (3.4-4.8); Albumin/Globulin Ratio 1.6 (1.2-2.2); Alkaline Phosphatase 93 U/L (46-116); Anion Gap 11 (7-16); Aspartate Amino Transferase 41 U/L (0-34); BUN/Creatinine Ratio 16 Ratio (12-20); Bilirubin,Total 0.9 mg/dL (0.3-1.2); Blood Urea Nitrogen 13 mg/dL (9-23); Calcium 9.0 mg/dL (8.3-10.6); Calcium (Corrected) 9.1 mg/dL (8.5-10.1); Carbon Dioxide 25.5 mMol/L (20.0-31.0); Chloride 105 mMol/L (98-107); Creatinine (Component) 0.8 mg/dL (0.6-1.3); Estimated Creatinine Clearance 64.9 mL/min (>60); Globulin 2.4 gm/dL (2.3-3.5); Glucose 123 mg/dL (74-106); Magnesium 1.7 mg/dL (1.6-2.6); Osmolality,Calculated 282 (275-295); Phosphorous 3.8 mg/dL (2.4-5.1); Potassium 4.6 mMol/L (3.4-5.1); Sodium 141 mMol/L (136-145); Total Protein 6.3 gm/dL (5.7-8.2); eGFR > 60 See Note
[2025-02-26 08:00] VITALS: BP 130/96; PULSE 109; PULSE 127; RESP 18; TEMP 36.2; O2SAT 95
[2025-02-26 09:11] VITALS: BP 130/96; PULSE 109
[2025-02-26] MEDS: AMIODARONE HCL 200 MG TABLET PO (09:11)
[2025-02-26] MEDS: PANTOPRAZOLE 40 MG TABLET PO (09:11)
[2025-02-26] MEDS: METOPROLOL TARTRATE 25 MG TABLET PO (09:11)
--- NOTE | 2025-02-26 11:25 | PC.SS ---
1125-Per assigned RN, the pt was ready for d/c; however, the attending cancelled the d/c order. Pt will remain admitted. No d/c date at this time.
--- NOTE | 2025-02-26 11:37 | ESOP_ITS ---
RE: EVY KC : 1960 DATE OF OPERATION: 02/25/2025 PROCEDURES PERFORMED: 1. Implantation of dual chamber AV sequential permanent pacemaker, CPT code 77722. 2. Conscious sedation. 3. Monitored anesthesia by anesthesiologist. DIAGNOSES: Sick sinus syndrome, symptomatic bradycardia, syncopal episodes with 7-second pauses in between atrial fibrillation and flutter episodes. HISTORY AND INDICATIONS: The patient is a 65-year-old lady with a history of hypertension, paroxysmal atrial fibrillation, flutter, and systolic heart failure with tachycardia-cardiomyopathy a month ago, which completely resolved. Bedside echo showed ejection fraction back to normal at 70%. She presented to the hospital with paroxysmal atrial fibrillation, flutter and pauses 5-second, intermittent pauses whenever she is going back into sinus rhythm with sinus node recovery time of 7 seconds. She had continuous episodes of mostly 7-second pauses whenever she has the transition from atrial flutter and fibrillation to sinus rhythm with syncope and near syncopal, hence the patient was recommended to have dual chamber AV sequential permanent pacemaker implantation for symptomatic bradycardia and pauses. DESCRIPTION OF PROCEDURE: The patient was brought to the operating room. Informed consent was obtained. Anesthesiology was administered monitored anesthesia. We proceeded with surgery. Left subclavian area was prepared in a sterile fashion and 1% Xylocaine local anesthesia was given and the left subclavian vein was cannulated with micropuncture technique and 6- [place]cuadorean sheath was introduced. A linear incision was made with blunt dissection and pocket was created. Two sheaths were introduced __ Atrial and ventricular active fixation leads by [employer] were advanced to the right atrial appendage and right ventricular apex, and active fixation was performed. Thresholds were found to be excellent. After obtaining satisfactory thresholds, the leads were attached to the device by [employer] dual chamber MRI safe permanent pacemaker device was attached. The device was then positioned in the pocket. Subcutaneous tissue was closed using 2-0 chromic continuous suture. Skin was closed using shruthi. The patient tolerated the procedure well. No complications. Cardiac fluoroscopy was used during the procedure. Chest x-ray post-procedure showed no pneumothorax and good placement of the leads. The patient did receive antibiotics during the procedure and also the patient was already on IV antibiotics earlier. SUMMARY OF FINDINGS AND SUGGESTIONS: Successful implantation of a dual chamber AV sequential permanent pacemaker. COMPLICATIONS: None. ESTIMATED BLOOD LOSS: 0 mL. THE DEVICE DETAILS ARE FOLLOWS: The device is manufactured by [employer]. MRI safe. Model number is L311. Serial number is [id number]. The atrial lead is a [employer] 7840 model number, 45 cm length, serial number is [id number]. The ventricular lead is [employer] bipolar lead, 52 cm, 7841 model number, serial number is [id number]. Thresholds at the time of implant are as follows: Right atrial threshold: 5 mV-R-waves, threshold 0.9 volts. Right ventricle; 12 mV-R-waves, threshold 0.9 volts. Lead impedance of the right atrium 645 ohms, RV 784 ohms. The pacemaker is programmed to dual chamber mode DDD, lower rate limit of 60, upper max tracking rate of 130. 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 One-week followup for shruthi removal. DT: 09:58:06 TT: 11:36:00 Ref: [id number] - TID: [id number] MTDD
[2025-02-26 12:00] VITALS: PULSE 71
--- NOTE | 2025-02-26 13:25 | ESDS_ITS ---
<Statement entered by Annika Rondon DO - 02/27/25 14:27> I, Annika Rondon DO, attest that I was physically present for the smith portions of the service and evaluated the patient with the resident and I reviewed and discussed the case with the resident and agree with the resident's findings and plans of care as documented above <Statement entered by Dhruv Martin MD - 02/26/25 20:05> Patient was examined and case was reviewed with team including attending physician. Note reviewed, I agree with most of its contents and agree with the patient's care as documented by Dr. Bijan Martin MD PGY-2 Planned Discharge Date 02/26/25 DS: Providers Provider Date of admission: 02/21/25 14:14 Primary care physician: Physician No Primary/Family Admitting Provider: Lew Delarosa MD Attending Provider on Admission: Lew Delarosa MD Consults: 02/21/25 11:57 Consult to Neurology / Tele-Neurology Routine Comment: Consulting Provider: [facility] 02/21/25 15:49 Consult to Cardiology Routine Comment: Consulting Provider: Sammy Richey 02/21/25 18:21 Referral Physical Therapy Stat Comment: Physician Instructions: Referral Speech Therapy Stat Comment: 02/21/25 18:36 Consult to Cardiology Routine Comment: Consulting Provider: Leon Nj 02/21/25 18:46 [facility] Referral - Nutrition Routine Comment: Positive screening for nutrition needs. [facility] Referral - Utilities Routine Comment: Positive screening for utility assistance needs. Attending Provider on DC: Annika Rondon DO Discharging Provider: Zeinab Thakkar DO Anticipated date of discharge: 02/26/25 DS: Diagnosis Problem List Completed Was Problem List Reviewed/Reconciled?: Yes Hospital Course Hospital Course Hospital course: 65-year-old female with atrial fibrillation on Eliquis, HFrEF (EF 25%), and recent cerebellar stroke (01/2025) presented with dizziness and transient right facial/body numbness. Stroke alert was initiated. CT/CTA were unremarkable and NIHSS was 1. Teleneurology was consulted and recommended aspirin and MRI brain, which showed no acute infarct. Neurology signed off and recommended follow up with outpatient neurology in 2-3weeks. Telemetry revealed alternating sinus bradycardia and atrial fibrillation with RVR, suggesting tachy-chepe syndrome. Cardiology wass consulted and recommended permanent pacemaker placement. On 02/25/25, patient underwent pacemaker implantation without complications. Eliquis was held and will be resumed when cleared by Cardiology services. Patient was prescribed one week of antibiotics for device prophylaxis. She remained hemodynamically stable with resolution of dizziness and chest pain. Heart failure remained compensated, and home therapies were continued. By discharge, she was stable, ambulating independently, tolerating diet, and instructed on medications and follow-up with Cardiology and Neurology. Patient is medically and physically stable for discharge. Diagnosis #Sick sinus syndrome, s/p dual-chamber pacemaker implantation (02/25/25) #Atrial fibrillation #Stroke-like symptoms ? no acute infarct on MRI, symptoms likely secondary to arrhythmia #History of ischemic stroke (January 2025), left cerebellar hemisphere, nonhemorrhagic #Heart failure with reduced ejection fraction (EF 25%) #Hypertension #Demand ischemia (type 2 NSTEMI) Discharge Plan: Follow up with primary care physician within 1 week of discharge. Follow up with [facility] [facility], Dr. Nj within 1 week of discahrge in regards to resuming your anticoagulation. Follow up with Neurology within 1-2 weeks of discharge. Your Eliquis is on HOLD please DO NOT take this medication until cleared by Cardiology. You have been prescribed Keflex for 7 days please take this medication as prescribed. Your medication digoxin has been discontinue please DO NOT take this medication until Cardiology determines if you will continue to take this medication. Should your symptoms recur or worsen patient is instructed to return to the ED. Case discussed with my senior resident Dr. Moiz Martin and my attending Dr. Rondon. Zeinab Thakkar, DO Status at Discharge Overall status at discharge: patient is back to baseline Time Spent with Patient Time attestation: Total time spent providing and/or coordinating discharge services: Time spent: Greater than 30 minutes Quality: Stroke Pt Provided Written Stroke Discharge Instructions: Yes Exam Vital Signs Temp Pulse Resp BP Pulse Ox O2 Del Method 97.1 F 109 H 18 130/96 H 95 Room Air 02/26/25 08:00 02/26/25 09:11 02/26/25 08:00 02/26/25 09:11 02/26/25 08:00 02/26/25 08:00 Narrative Exam Physical Exam: General: Well appearing, well nourished, in no distress. Oriented x 3, normal mood and affect . Ambulating without difficulty. +Dizziness with exertion Skin: Good turgor, no rash, unusual bruising or prominent lesions Head: Normocephalic, atraumatic, no visible or palpable masses, depressions, or scaring. Heart: No cardiomegaly or thrills; regular rate with pacemaker now, no murmur or gallop. Lungs: Clear to auscultation and percussion. No rales, wheeze, or rhonchi. Abdomen: Bowel sounds normal, no tenderness, organomegaly, masses, or hernia Back: Spine normal without deformity or tenderness, no CVA tenderness Extremities: No amputations or deformities, cyanosis, edema or varicosities, peripheral pulses intact Discharge Plan Plan Patient Disposition: HOME (Self Care) Care Plan Goals: Follow up with primary care physician within 1 week of discharge Follow up with [facility] [facility], Dr. Nj within 1 week of discahrge in regards to resuming your anticoagulation Your Eliquis is on HOLD please DO NOT take this medication until cleared by Cardiology You have been prescribed Keflex for 7 days please take this medication as prescribed Your medication digoxin has been discontinue please DO NOT take this medication until Cardiology determines if you will continue to take this medication. Should your symptoms recur or worsen patient is instructed to return to the ED. Prescriptions/Referrals Prescriptions/Med Rec: New cephalexin 500 mg capsule 500 mg PO BID 7 Days Qty: 14 0RF amiodarone 200 mg tablet 200 mg PO BID Qty: 60 0RF atorvastatin 80 mg tablet 80 mg PO QDAY Qty: 30 0RF benazepril 20 mg tablet 20 mg PO QDAY Qty: 30 0RF metoprolol succinate 50 mg tablet extended release 24 hr 50 mg PO QDAY Qty: 30 0RF furosemide [Lasix] 20 mg tablet 20 mg PO QAM Qty: 30 0RF Held Eliquis 2.5 mg Tablet 5 mg PO BID 30 Days Qty: 120 0RF Hold Instructions: Resume on 02/25/25. Restart when you see Dr. Nj in 1 week. Discontinued atorvastatin 20 mg Tablet 80 mg PO HS 30 Days Qty: 120 0RF amiodarone 200 mg Tablet 200 mg PO BID 30 Days Qty: 60 0RF digoxin 125 mcg (0.125 mg) Tablet 0.125 mg PO QDAY 30 Days Qty: 30 0RF furosemide 20 mg Tablet 20 mg PO QAM 30 Days Qty: 30 0RF metoprolol succinate 25 mg Tablet Extended Release 24 Hr 50 mg PO QDAY 30 Days Qty: 60 0RF benazepril 20 mg tablet 20 mg PO QDAY 30 Days Qty: 30 0RF Referrals: No Primary/Family,Physician [Primary Care Provider] - Patient/Caregiver Discharge Instructions Education Materials: Living with a Pacemaker, Exercise for a Healthier Heart, Discharge Instructions for ..., Discharge Instructions for ..., Discharge Instructions for Stroke, Eating Heart-Healthy Foods, ED About Arrhythmias Print Language: Azeri Stand Alone Forms: Melanie Award Info., Patient Portal Info Letter Discharge Order Discharge Orders: Discharge (Routine); Ordered 02/26/25 Ordered By: Dhruv Martin Quality Discharge Quality Measures none
== END 2025-02-26 13:50 | disposition home or self-care (01) | DRG 171 ==
LOC: SERX 14:00 → SERHOLD 14:46 → S2NX 17:24
PROVIDERS: Internal Medicine Cardiovascular Disease; Student in an Organized Health Care Education/Training Program; Admitting Provider Student in an Organized Health Care Education/Training Program; Visit Provider Student in an Organized Health Care Education/Training Program
DX: R00.8 Other abnormalities of heart beat (principal); I49.5 Sick sinus syndrome; R20.0 Anesthesia of skin; I69.354 Hemiplegia and hemiparesis following cerebral infarction affecting left non-dominant side; Z79.01 Long term (current) use of anticoagulants; I11.0 Hypertensive heart disease with heart failure; I50.22 Chronic systolic (congestive) heart failure; I48.91 Unspecified atrial fibrillation; I24.89 Other forms of acute ischemic heart disease; I48.0 Paroxysmal atrial fibrillation; I48.92 Unspecified atrial flutter; I42.9 Cardiomyopathy, unspecified; I49.3 Ventricular premature depolarization; I63.542 Cerebral infarction due to unspecified occlusion or stenosis of left cerebellar artery; R29.701 NIHSS score 1; Z79.899 Other long term (current) drug therapy; Z95.0 Presence of cardiac pacemaker
CPT/HCPCS: 36415; 70450; 70496; 70498; 70551; 71045; 76000; 80053; 80061; 80162; 80307; 81001; 83735; 84100; 84439; 84443; 84484; 84703; 85025; 85610; 85730; 87081; 87086; 92610; 93005; 97162; 99284; A4217; A4649; C1785; C1894; C1898; J0131; J0690; J1650; J2704; J3475; J3490; J7030; J7050; Q9967; A9270